=== PATIENT | female | born 1935 | race Caucasian/White ===

== ENCOUNTER 2018-06-11 09:43 | Outpatient (REF) | payer MEDICARE, SELFPAY ==
[2018-06-11 20:19] LABS: HCT 36.5 % (36.0-46.0); HGB 12.9 g/dL (12.0-15.5); Mean Corp. HGB Concentration 35.3 g/dL (32.0-36.0); Mean Corpuscular Hemoglobin 29.3 pg (27.0-33.0); Mean Platelet Volume 9.3 fL (8.0-11.0); Platelet Count 218 x1000/uL (130-400); White Blood Cell Count 5.77 k/cumm (4.4-10.8)
[2018-06-11 20:28] LABS: Anion Gap 8.6 mmol/L (3-11); BUN 15 mg/dL (7-18); CO2 26.4 mmol/L (21.0-32.0); CREATININE 0.86 mg/dL (0.55-1.02); Calcium 8.7 mg/dL (8.5-10.1); Chloride 107 mmol/L (98-107); Glucose 99 mg/dL (70-100); Potassium 4.4 mmol/L (3.5-5.1); Sodium 142 mmol/L (136-145)
== END 2018-06-11 10:03 ==
LOC: NCHCN 09:43
PROVIDERS: PCP Nurse Practitioner Family; Visit Provider Physician Assistant Medical
DX: E78.5 Hyperlipidemia, unspecified (principal)
CPT/HCPCS: 80048; 85027

== ENCOUNTER 2019-02-09 12:52 | Outpatient (REF) | payer MEDICARE, SELFPAY ==
[2019-02-09 22:09] LABS: ALT 18 U/L (12-78); AST 16 U/L (15-37); Anion Gap 12.4 mmol/L (3-11); BUN 17 mg/dL (7-18); CO2 24.6 mmol/L (21.0-32.0); Calcium 8.9 mg/dL (8.5-10.1); Chloride 101 mmol/L (98-107); Cholesterol 179 mg/dL (50-200); Glucose 93 mg/dL (70-100); HDL Cholesterol 50 mg/dL (40-60); LDL CHOLESTEROL 93 mg/dL (<100); Potassium 4.5 mmol/L (3.5-5.1); Sodium 138 mmol/L (136-145); Triglyceride 154 mg/dL (30-150)
[2019-02-09 23:32] LABS: Creatine Kinase 42 U/L (26-192)
== END 2019-02-09 13:12 ==
LOC: NCHCN 12:52
PROVIDERS: PCP Nurse Practitioner Family; Visit Provider Nurse Practitioner Family
DX: E78.5 Hyperlipidemia, unspecified (principal); F41.9 Anxiety disorder, unspecified
CPT/HCPCS: 80048; 80061; 82550; 83721; 84450; 84460

== ENCOUNTER 2019-10-27 15:53 | Outpatient (REF) | payer MEDICARE, SELFPAY ==
[2019-10-27 22:03] LABS: Abs Immature Grans 0.02 k/cumm (0.0-0.09); Absolute Basophil Count 0.02 k/cumm (0.0-0.2); Absolute Eosinophil Count 0.18 k/cumm (0.0-0.7); Absolute Lymphocyte Count 1.61 k/cumm (1.2-3.4); Absolute Monocyte Count 0.49 k/cumm (0.11-0.7); Absolute Neutrophil Count 4.35 k/cumm (1.2-6.7); Basophils % 0.3; Eosinophils % 2.7; HCT 34.4 % (36.0-46.0); HGB 11.9 g/dL (12.0-15.5); Immature Grans % 0.3 %; Lymphocytes % 24.1; Mean Corp. HGB Concentration 34.6 g/dL (32.0-36.0); Mean Corpuscular Hemoglobin 30.3 pg (27.0-33.0); Mean Corpuscular Volume 87.5 fL (80-95); Mean Platelet Volume 9.1 fL (8.0-11.0); Monocytes % 7.3; Neutrophils % 65.3; Platelet Count 269 x1000/uL (130-400); RBC 3.93 m/cumm (4.00-5.20); RBC Distribution Width 13.9 % (11.7-14.6); White Blood Cell Count 6.67 k/cumm (4.4-10.8)
[2019-10-27 22:17] LABS: Hemoglobin A1C 5.1 % (3.8-5.6)
[2019-10-27 22:28] LABS: Anion Gap 13.5 mmol/L (3-11); BUN 14 mg/dL (7-18); CO2 22.5 mmol/L (21.0-32.0); CREATININE 0.94 mg/dL (0.55-1.02); Calcium 8.9 mg/dL (8.5-10.1); Chloride 103 mmol/L (98-107); Estimated GFR 57.01 (mL/min/1.73m2); Glucose 96 mg/dL (74-106); HDL Cholesterol 83 mg/dL (40-60); LDL CHOLESTEROL 73 mg/dL (<100); Magnesium 2.2 mg/dL (1.8-2.4); Potassium 4.3 mmol/L (3.5-5.1); Sodium 139 mmol/L (136-145)
[2019-10-27 22:55] LABS: NT-proBNP 1077 pg/mL (<300)
[2019-10-29 06:43] LABS: Vitamin D 25 Total 8.1 ng/ml (30-100)
== END 2019-10-27 16:13 ==
LOC: NCHCO 15:53
PROVIDERS: PCP Nurse Practitioner Family; Visit Provider Nurse Practitioner Family
DX: E78.5 Hyperlipidemia, unspecified (principal); I44.7 Left bundle-branch block, unspecified; L65.9 Nonscarring hair loss, unspecified; F32.9 Major depressive disorder, single episode, unspecified; F41.9 Anxiety disorder, unspecified; R60.9 Edema, unspecified; E55.9 Vitamin D deficiency, unspecified; R79.89 Other specified abnormal findings of blood chemistry; M25.511 Pain in right shoulder; R55 Syncope and collapse
CPT/HCPCS: 80048; 82306; 83721; 83036; 83718; 83735; 83880; 84443; 85025

== ENCOUNTER 2019-11-25 03:18 | Outpatient (CLI) | payer MEDICARE, SELFPAY | END 2019-11-25 03:38 | PROVIDERS: PCP Nurse Practitioner Family; Visit Provider Nurse Practitioner Family | DX: R55 Syncope and collapse (principal); I47.1 Supraventricular tachycardia | CPT/HCPCS: 93225 ==

== ENCOUNTER 2019-11-27 16:58 | Outpatient (CLI) | payer MEDICARE, SELFPAY ==
--- NOTE | 2019-11-30 08:23 | W.HOLTRPT ---
Date of service: 11/30/19 Time of Service: 08:23 Holter Monitor Report Holter Monitor Note: This is a 2-day Holter monitor ordered for indication of syncope. ?The patient was in normal sinus rhythm for the majority of the recording. ?The patient had 8 episodes of supraventricular tachycardia with the longest lasting 27 beats. There were rare (less than 1%) premature atrial contractions. ?There were 0 episodes of ventricular tachycardia and 0 ventricular ectopic beats. ?There were no episodes of atrial fibrillation, no pauses greater than 3 seconds and no evidence of high degree heart block. ?There were no patient triggered events.
== END 2019-11-27 17:18 ==
PROVIDERS: PCP Nurse Practitioner Family; Visit Provider Nurse Practitioner Family
DX: R55 Syncope and collapse (principal)
CPT/HCPCS: 93226

== ENCOUNTER 2019-11-30 08:23 | Outpatient (CLI) | payer MEDICARE, SELFPAY | END 2019-11-30 08:43 | PROVIDERS: PCP Nurse Practitioner Family; Referring Provider Nurse Practitioner Family; Visit Provider Internal Medicine Cardiovascular Disease | DX: R55 Syncope and collapse (principal); I47.1 Supraventricular tachycardia | CPT/HCPCS: 93227 ==

== ENCOUNTER 2019-12-01 00:23 | Outpatient (CLI) | payer MEDICARE, SELFPAY ==
--- NOTE | 2019-12-01 11:58 | DI.US_ITS ---
APPROVED REPORT EXAM: Comprehensive 2D, Doppler, and color-flow Echocardiogram Patient Location: Out-Patient [place] Upholsterer: Skylar Womack RDCS (AE) Indications: Bundle branch block, Syncope Conclusion Left Ventricle : The left ventricle is normal size. The left ventricular systolic function is normal . The left ventricular ejection fraction is within the normal range. Left ventricular systolic functi on is normal. There is normal left ventricular wall thickness. There is normal LV segmental wall lindsey on. There is evidence of LV diastolic dysfunction with increased left atrial pressure. LVEF is 55-59% . Right Ventricle : The right ventricle is normal size. The right ventricular systolic function is norm al. Atria : The left atrium size is normal. The right atrium size is normal. Aortic Valve : Aortic valve is trileaflet. The Aortic valve is sclerotic. Mild to moderate aortic reg urgitation. There is no aortic valvular stenosis. Mitral Valve : There is mitral annular calcification. Mild mitral regurgitation. No evidence of mookie l valve stenosis. Great Vessels : The IVC was not well visualized. Estimated RVSP is 30-35 mmHg. There is no prior echocardiogram available for comparison. Wall motion Left Ventricle The left ventricle is normal size. The left ventricular systolic function is normal. The left ventric ular ejection fraction is within the normal range. Left ventricular systolic function is normal. Ther e is normal left ventricular wall thickness. There is normal LV segmental wall motion. There is evide nce of LV diastolic dysfunction with increased left atrial pressure. LVEF is 55-59%. Right Ventricle The right ventricle is normal size. The right ventricular systolic function is normal. Atria The left atrium size is normal. The right atrium size is normal. Aortic Valve Aortic valve is trileaflet. The Aortic valve is sclerotic. There is no aortic valvular stenosis. Mild to moderate aortic regurgitation. Mitral Valve There is mitral annular calcification. No evidence of mitral valve stenosis. Mild mitral regurgitatio n. Tricuspid Valve The tricuspid valve is normal in structure. There is no tricuspid valve stenosis. Mild tricuspid regu rgitation. Pulmonic Valve The pulmonary valve is normal in structure. There is no pulmonic valvular stenosis. Trace pulmonic re gurgitation. Great Vessels The aortic root is normal in size. The ascending aorta is normal in size. The IVC was not well visual ized. Estimated RVSP is 30-35 mmHg. Pericardium There is no pericardial effusion. 2D Dimensions IVSD d PLAX 0.96 cm F: 0.6-1.0 LV Vol A2C d MOD 69.7 mL LVPW d PLAX 0.94 cm F: 0.6 - 1.0 LV Vol A4C d MOD 58.1 mL LVID d PLAX 4.45 cm F: 3.8 - 5.2 LA vol/ BSA A2C s A-L 23.3 mL/m2 LVDs 3.20 cm F: 2.2 - 3.5 LA vol/ BSA A4C s A-L 28.3 mL/m2 Ao Root d 2.73 cm F: 2.7 - 3.3 LA Vol/ BSA Biplane s A-L 27.0 mL/m2 RA Area A4C 13.91 cm2 LA Area A4C s MOD 17.75 cm2 RA Vol/ BSA A4C s A-L 19.0 mL/m2 LA Area A2C s MOD 15.30 cm2 Ao Asc Diam d 3.14 cm F: 2.3 - 3.1 LV EF A4C MOD 51.0 % LV EF Teichholz 53.9 % LV EF A2C MOD 59.3 % LVEF (Jones's) 55.67 % F: 54 - 74 LV EF Biplane MOD 55.7 % LV Volume 50.26 mL F: 46 - 106 LV Volume Index 28.72 mL/m2 F: 29 - 61 LV Vol Biplane MOD 64.0 mL FS 27.70 % LV Diastology MV E' medial 0.048 (>0.07 m/s) E/A Ratio 0.7 LV E/e MED 14.60 (<14) MV E Vmax 0.70 (0.4-1.3 m/s) MV E' lateral 0.077 (>0.1 m/s) MV A Vmax 1.05 (0.4-1.3 m/s) LV E/e LAT 9.05 (<14) MV E/A Ratio 0.65 MV E/E' medial 14.63 MV E/E' lateral 9.06 Aortic Valve LVOT Area 2.36 cm2 AoV Area Vmax 1.40 cm2 LVOT Vmax 1.23 m/s AoV Area/ BSA (Vmax) 0.80 cm2/m2 LVOT Mean Franco. 0.84 m/s JAGUAR Mean Franco. 1.38 cm2 LVOT Peak Grad 6.0 mmHg JAGUAR Mean Franco. Index 0.79 cm2/m2 LVOT Mean Grad 3.3 mmHg AR DT 1522 msec LVOT VTI 0.254 m AR PHT 441 msec LVOT Diam s 1.70 cm (M/F) 1.5-2.5 AoV Vmax 2.07 (0.5-1.3 m/s) Velocity Ratio 0.59 AoV Mean Franco. 1.44 m/s AoV Peak Grad 17.2 mmHg LVOT SV 60.04 mL AoV Mean Grad 9.3 (<5 mmHg) AoV VTI 0.393 (0.18-0.25 m) AoV Area VTI 1.53 (2.5-4.5 cm2) AoV Area/ BSA (VTI) 0.87 cm/m2 Mitral Valve MV DT 227 (160-240 msec) MR Vmax 5.12 m/s MV PHT 66 msec MR VTI 1.449 m MV Area PHT 3.35 cm2 MR Peak Grad 104.7 mmHg MR Mean Grad 74.7 mmHg Pulmonary Valve PV Vmax 0.95 (0.5-1.5 m/s) RVOT Peak Gr. 1.76 mmHg PV Peak Grad 3.6 mmHg RVOT Mean Gr. 0.80 mmHg PV Mean Grad 1.8 mmHg RVOT VTI 0.127 m PV VTI 0.160 m RVOT Vmax 0.66 m/s Tricuspid Valve TR Peak Grad 33.5 mmHg TR Vmax 2.89 m/s RA Pressure 3.00 mmHg RVSP (TR) 36.5 mmHg
== END 2019-12-01 00:43 ==
PROVIDERS: PCP Nurse Practitioner Family; Visit Provider Nurse Practitioner Family
DX: R55 Syncope and collapse (principal); I44.7 Left bundle-branch block, unspecified; I35.1 Nonrheumatic aortic (valve) insufficiency
CPT/HCPCS: 93306

== ENCOUNTER 2020-03-03 11:24 | Outpatient (REF) | payer MEDICARE, SELFPAY ==
[2020-03-03 20:07] LABS: ALT 23 U/L (14-59); AST 25 U/L (15-37); Albumin 3.9 g/dL (3.4-5.0); Alkaline Phosphatase 129 U/L (46-116); Anion Gap 10.6 mmol/L (3-11); BUN 17 mg/dL (7-18); Bilirubin, Total 0.9 mg/dL (0.2-1.0); CO2 25.4 mmol/L (21.0-32.0); CREATININE 0.95 mg/dL (0.55-1.02); Calcium 8.8 mg/dL (8.5-10.1); Chloride 105 mmol/L (98-107); Estimated GFR 56.32 (mL/min/1.73m2); Glucose 97 mg/dL (74-106); Potassium 4.2 mmol/L (3.5-5.1); Sodium 141 mmol/L (136-145)
[2020-03-03 20:25] LABS: Vitamin D 25 Total 18.6 ng/ml (30-100)
[2020-03-03 21:52] LABS: Creatine Kinase 58 U/L (26-192)
== END 2020-03-03 11:44 ==
LOC: NCHCN 11:24
PROVIDERS: PCP Nurse Practitioner Family; Visit Provider Nurse Practitioner Family
DX: E78.5 Hyperlipidemia, unspecified (principal); E55.9 Vitamin D deficiency, unspecified
CPT/HCPCS: 80053; 82306; 82550

== ENCOUNTER 2020-04-06 10:33 | Outpatient (REF) | payer MEDICARE, SELFPAY ==
[2020-04-06 22:07] LABS: Anion Gap 8.7 mmol/L (3-11); BUN 11 mg/dL (7-18); CO2 26.3 mmol/L (21.0-32.0); CREATININE 0.83 mg/dL (0.55-1.02); Calcium 9.4 mg/dL (8.5-10.1); Chloride 103 mmol/L (98-107); Glucose 98 mg/dL (74-106); Potassium 4.9 mmol/L (3.5-5.1); Sodium 138 mmol/L (136-145)
== END 2020-04-06 10:53 ==
LOC: NCHCN 10:33
PROVIDERS: PCP Nurse Practitioner Family; Visit Provider Nurse Practitioner Family
DX: I10 Essential (primary) hypertension (principal)
CPT/HCPCS: 80048

== ENCOUNTER 2020-06-20 15:41 | Outpatient (REF) | payer MEDICARE, SELFPAY ==
[2020-06-20 20:02] LABS: HCT 32.7 % (36.0-46.0); HGB 11.2 g/dL (11.2-15.7); MCH 31.2 pg (27.0-33.0); MCHC 34.3 % (32.0-36.0); MCV 91.1 fL (80-95); MPV 9.2 fL (8.0-11.0); Platelet Count 210 10^3/uL (130-400); RBC 3.59 10^6/uL (3.93-5.22); RDW 13.2 % (11.7-14.6); RDW-SD 43.3 fL
== END 2020-06-20 16:01 ==
LOC: NCHCN 15:41
PROVIDERS: PCP Nurse Practitioner Family; Visit Provider Nurse Practitioner Family
DX: R89.8 Other abnormal findings in specimens from other organs, systems and tissues (principal)
CPT/HCPCS: 85027

== ENCOUNTER 2020-10-24 15:52 | Outpatient (REF) | payer MEDICARE, SELFPAY ==
[2020-10-24 15:30] LABS: HCT 34.8 % (36.0-46.0); HGB 12.2 g/dL (11.2-15.7); MCH 31.3 pg (27.0-33.0); MCHC 35.1 % (32.0-36.0); MCV 89.2 fL (80-95); MPV 9.1 fL (8.0-11.0); Platelet Count 196 10^3/uL (130-400); RDW 12.8 % (11.7-14.6); RDW-SD 41.4 fL; WBC 5.45 10^3/uL (4.4-10.8)
[2020-10-24 15:53] LABS: ALT 21 U/L (14-59); AST 22 U/L (15-37); Anion Gap 10.3 mmol/L (3-11); BUN 17 mg/dL (7-18); CO2 23.7 mmol/L (21.0-32.0); CREATININE 0.9 mg/dL (0.55-1.02); Calcium 9.1 mg/dL (8.5-10.1); Calculated LDL 89 mg/dL (<100); Chloride 103 mmol/L (98-107); Cholesterol 198 mg/dL (<200); Glucose 97 mg/dL (74-106); HDL Cholesterol 89 mg/dL (40-60); Potassium 4.4 mmol/L (3.5-5.1); Sodium 137 mmol/L (136-145); TSH 1.16 uIU/mL (0.36-3.74); Triglyceride 100 mg/dL (<150)
[2020-10-24 16:03] LABS: Vitamin D 25 Total 35.3 ng/ml (30-100)
[2020-10-24 16:11] LABS: Creatine Kinase 49 U/L (26-192)
== END 2020-10-24 16:12 ==
LOC: NCHCN 15:52
PROVIDERS: PCP Nurse Practitioner Family; Visit Provider Nurse Practitioner Family
DX: E78.5 Hyperlipidemia, unspecified (principal); E55.9 Vitamin D deficiency, unspecified; I10 Essential (primary) hypertension; R89.9 Unspecified abnormal finding in specimens from other organs, systems and tissues; L60.9 Nail disorder, unspecified
CPT/HCPCS: 80048; 80061; 82306; 82550; 85027; 84443; 84450; 84460

== ENCOUNTER → 2020-12-06 10:48 | Outpatient (BNVA) | payer MEDICARE, SELFPAY | PROVIDERS: PCP Nurse Practitioner Family; Referring Provider Nurse Practitioner Family; Visit Provider Nurse Practitioner Gerontology | DX: N32.81 Overactive bladder (principal); I10 Essential (primary) hypertension | CPT/HCPCS: 99215 ==

== ENCOUNTER → 2021-01-09 10:29 | Outpatient (BNVA) | payer MEDICARE, SELFPAY | PROVIDERS: PCP Nurse Practitioner Family; Referring Provider Nurse Practitioner Family; Visit Provider Nurse Practitioner Gerontology | DX: N32.81 Overactive bladder (principal) | CPT/HCPCS: 99214 ==

== ENCOUNTER 2021-01-24 08:51 | Outpatient (REF) | payer MEDICARE, SELFPAY ==
[2021-01-24 10:49] LABS: Bilirubin Small (Negative); Blood Negative (Negative); Clarity Cloudy (Clear); Glucose Negative (Negative); Ketones Trace mg/dL (Negative); Leukocyte Esterase Negative (Negative); Nitrite Negative (Negative); Specific Gravity >= 1.030 (1.005-1.025); Urobilinogen 0.2 EU/dL (Up TO 0.2); pH 5.5 (5-8)
[2021-01-24 12:34] LABS: C Diff PCR Negative (Negative)
== END 2021-01-24 08:52 | disposition home or self-care (01) ==
LOC: NCHCN 08:51
PROVIDERS: PCP Nurse Practitioner Family; Visit Provider Nurse Practitioner Family
DX: R19.7 Diarrhea, unspecified (principal); N32.81 Overactive bladder
CPT/HCPCS: 87493; 81003; 82272; 83630

== ENCOUNTER 2021-01-25 11:02 | Outpatient (REF) | payer MEDICARE, SELFPAY ==
[2021-01-25 22:57] LABS: Campylobacter PCR Negative (Negative); Salmonella PCR Negative (Negative); Shiga Toxin PCR Negative (Negative); Shigella/Enteroinvasive Ecoli Negative (Negative)
== END 2021-01-25 11:03 | disposition home or self-care (01) ==
LOC: NCHCN 11:02
PROVIDERS: PCP Nurse Practitioner Family; Visit Provider Nurse Practitioner Family
DX: R19.7 Diarrhea, unspecified (principal)
CPT/HCPCS: 87329; 87505; 87177

== ENCOUNTER → 2021-04-11 10:15 | Outpatient (BNVA) | payer MEDICARE, SELFPAY | PROVIDERS: PCP Nurse Practitioner Family; Referring Provider Nurse Practitioner Family; Visit Provider Nurse Practitioner Gerontology | DX: N32.81 Overactive bladder (principal) | CPT/HCPCS: 99214 ==

== ENCOUNTER → 2021-05-16 08:16 | Outpatient (BNVA) | payer MEDICARE, SELFPAY | PROVIDERS: PCP Nurse Practitioner Family; Referring Provider Nurse Practitioner Family; Visit Provider Nurse Practitioner Gerontology | DX: N32.81 Overactive bladder (principal); Z79.899 Other long term (current) drug therapy | CPT/HCPCS: 99214 ==

== ENCOUNTER → 2021-08-15 08:17 | Outpatient (BNVA) | payer MEDICARE, SELFPAY | PROVIDERS: PCP Nurse Practitioner Family; Referring Provider Nurse Practitioner Family; Visit Provider Nurse Practitioner Gerontology | DX: N32.81 Overactive bladder (principal) | CPT/HCPCS: 99213 ==

== ENCOUNTER 2021-10-24 21:11 | Outpatient (REF) | payer MEDICARE, SELFPAY ==
[2021-10-24 21:06] LABS: ALT 25 U/L (14-59); AST 21 U/L (15-37); Anion Gap 10.3 mmol/L (3-11); BUN 29 mg/dL (7-18); CO2 26.7 mmol/L (21.0-32.0); CREATININE 1.2 mg/dL (0.55-1.02); Calcium 9.4 mg/dL (8.5-10.1); Chloride 103 mmol/L (98-107); Glucose 100 mg/dL (74-106); HDL Cholesterol 86 mg/dL (40-60); LDL CHOLESTEROL 82 mg/dL (<100); Potassium 4.6 mmol/L (3.5-5.1); Sodium 140 mmol/L (136-145)
[2021-10-24 21:52] LABS: Creatine Kinase 56 U/L (26-192)
== END 2021-10-24 21:12 | disposition home or self-care (01) ==
LOC: NCHCN 21:11
PROVIDERS: PCP Nurse Practitioner Family; Visit Provider Nurse Practitioner Family
DX: E78.5 Hyperlipidemia, unspecified (principal); I10 Essential (primary) hypertension
CPT/HCPCS: 80048; 82550; 83721; 83718; 84450; 84460

== ENCOUNTER 2021-11-21 18:47 | Outpatient (REF) | payer MEDICARE, SELFPAY ==
[2021-11-21 20:20] LABS: Anion Gap 6.9 mmol/L (3-11); BUN 22 mg/dL (7-18); CO2 29.1 mmol/L (21.0-32.0); CREATININE 1.1 mg/dL (0.55-1.02); Calcium 9.6 mg/dL (8.5-10.1); Chloride 104 mmol/L (98-107); Estimated GFR 47.32 (mL/min/1.73m2); Glucose 105 mg/dL (74-106); Sodium 140 mmol/L (136-145)
== END 2021-11-21 18:48 | disposition home or self-care (01) ==
LOC: NCHCN 18:47
PROVIDERS: PCP Nurse Practitioner Family; Visit Provider Nurse Practitioner Family
DX: R79.89 Other specified abnormal findings of blood chemistry (principal)
CPT/HCPCS: 80048

== ENCOUNTER 2021-12-04 10:26 | Day surgery (SDC) | payer MEDICARE, SELFPAY ==
--- NOTE | 2021-12-04 06:56 | W.ANESPRE ---
General Info Date of Service Date Performed: 12/04/21 Height: 5 ft 3 in Weight: 86.5 kg Body Mass Index (BMI): 33.7 Surgical Procedure: Operation Date: 12/04/21 13:40 Proposed Procedure Side Surgeon p Cataract Extraction with IOL Implant Left Parker Sneed MD Meds Allergies and Home Medications Allergies Allergy/AdvReac Type Severity Reaction Status Date / Time codeine AdvReac Intermediate Nausea Verified 12/04/21 10:43 oxybutynin AdvReac Mild dry mouth Verified 12/04/21 10:43 Home Medication Medication Instructions Recorded simvastatin 10 mg tablet 10 mg PO HS tab-cap 12/15/15 escitalopram oxalate 20 mg tablet 20 mg PO DAILY 02/01/16 (Lexapro) zinc 50 mg tablet 50 mg PO PRN PRN 02/01/16 mirabegron 25 mg tablet,extended 25 mg PO DAILY #90 tab 08/15/21 release 24 hr (Myrbetriq) buspirone 5 mg tablet 5 mg PO BID 12/01/21 lisinopril 5 mg tablet 5 mg PO DAILY 12/01/21 vit D3-folic acid-vit B2-B6-B12 1 tab PO 12/04/21 2,000 unit-800 mcg-0.32 mg tablet Current Visit Medications: Current Medications Generic Name Dose Route Start Last Admin Trade Name Freq PRN Reason Stop Dose Admin Acetaminophen 1,000 mg 12/04/21 06:00 Acetaminophen 500 Mg Tab PO Q4H PRN PRN Miscellaneous Medication 0 ml 12/04/21 06:00 Prednisolone 1%, Moxifloxacin 0.5%, Nepafenac 0.1% 5ml Btl OS DIRECTED [facility] Miscellaneous Medication 0 ml 12/04/21 06:00 Tropicam./Phenyleph. 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 Scleral hemorrhage of right eye H11.31 Abnormal auditory perception H93.299 Cerumen impaction H61.20 Foreign body in right ear T16.1XXA Tinnitus H93.19 Sensorineural hearing loss of combined sites, bilateral 06/08/16 H90.3 Medical History Medical History (Updated 12/04/21 @ 10:56 by Parker Sneed MD) Alcohol abuse Alopecia Anxiety and depression Hyperlipidemia Hypertension Left bundle branch block Peripheral edema Right shoulder pain Syncope and collapse Urinary urgency Vertigo Vitamin D deficiency Tobacco Smoking/Tobacco Use Status: Former Tobacco Use Alcohol Alcohol Intake: former Substance Use Substance use: Never Substance use type: does not use Vital Signs and Lab Results Vital Signs Most Recent Vital Signs in EMR: Temp Pulse Resp BP Pulse Ox 36.1 C L 75 16 144/56 H 100 12/04/21 10:48 12/04/21 10:48 12/04/21 10:48 12/04/21 10:48 12/04/21 10:48 Lab Results Blood Type / Crossmatch: No Data to Display Complete Blood Count: No Data to Display Complete Metabolic Panel: Sodium Level 140 mmol/L (136-145) 11/21/21 14:15 11/21/21 Potassium Level 5.0 mmol/L (3.5-5.1) 11/21/21 14:15 11/21/21 Chloride Level 104 mmol/L (98-107) 11/21/21 14:15 11/21/21 Carbon Dioxide Level 29.1 mmol/L (21.0-32.0) 11/21/21 14:15 11/21/21 Blood Urea Nitrogen 22 mg/dL (7-18) H 11/21/21 14:15 11/21/21 Creatinine 1.1 mg/dL (0.55-1.02) H 11/21/21 14:15 11/21/21 Estimated GFR/1.73 m2 47.32 (mL/min/1.73m2) 11/21/21 14:15 11/21/21 Calcium Level 9.6 mg/dL (8.5-10.1) 11/21/21 14:15 11/21/21 Glucose Level 105 mg/dL (74-106) 11/21/21 14:15 11/21/21 Liver Function Panel: No Data to Display Coagulation Panel: No Data to Display Cardiac Panel: No Data to Display Arterial Blood Gas: No Data to Display Venous Blood Gas: No Data to Display Pancreas Panel: No Data to Display Thyroid Panel: No Data to Display Infectious Disease: No Data to Display Blood Cultures: No Data to Display Toxicology Panel: No Data to Display Imaging and Studies Imaging and Studies Study information below may be from another EMR and interpreted by another provider. Please see original notes in EMR for more complete details. Echocardiogram Summary: 2020: LVEF 55-59%, mild to mod AR, mild MR. Anesthesia Assessment and Plan Anesthesia History Personal History: No History of Anesthesia Complications Family History: No Family History of Anesthesia Complications Exercise Tolerance Exercise Tolerance: Metabolic Equivalents>4 Cardiac & Pulmonary Exam Cardiac Exam: Normal S1/S2 Heart Sounds Pulmonary Exam: Clear Bilateral Breath Sounds Implantable Cardiac Device Does patient have a Pacemaker or an ICD?: No Airway Exam Known Difficult Airway: No Mallampati Class: 2 Mouth Opening: Normal (> 3cm) Thyromental Distance: Greater than 3 cm Neck Range of Motion: Full ROM Neck Circumference: Normal Teeth Condition: Normal Dentition ASA Classification ASA Score: ASA 2 Emergency Case?: No NPO Status NPO Status: NPO Clears >2 hours, Solids >8 hours Anesthesia Plan Resuscitation Status: Full Code Anesthesia Technique: MAC Anesthesia Airway Planned: Natural Airway Monitors Used: Standard Monitors Preoperative Comments:: 86 yo female for cataract removal. Sig PMHx: anxiety/depression, HTN (lisinopril), LBBB, EtOH abuse. Previous LMA 4. no mKO
[2021-12-04 10:48] VITALS: BP 144/56; PULSE 75; RESP 16; TEMP 36.1; O2SAT 100
[2021-12-04 10:56] VITALS: BMI 33.7
[2021-12-04] MEDS: Tropicam./Phenyleph. (1/2.5%) 5 ML BTL OS ×3 (10:56→11:06)
[2021-12-04] MEDS: Tetracaine 0.5% 4 ML BTL OS (11:55)
[2021-12-04] MEDS: Balanced Salt Soln.-PLUS 500 ML BAG (11:55)
[2021-12-04] MEDS: Duovisc Viscoelastic System EACH 1 EACH (11:56)
[2021-12-04] MEDS: Lidocaine 2% Jelly 6 ML SYR (11:57)
[2021-12-04] MEDS: Povidone-Iodine Ophth 30 ML BTL (11:58)
[2021-12-04 12:10] VITALS: BP 113/55; PULSE 65; RESP 16; TEMP 36.2; O2SAT 96
--- NOTE | 2021-12-04 12:12 | W.PM.DSUDISC ---
Discharge Plan Disposition Patient Disposition: HOME Condition: Good Discharge Details Attending Provider: Parker Sneed Primary Care Provider: Jessica Russell Home Meds and New Rx's Prescriptions: No Action Myrbetriq 25 mg tablet extended release 24 hr 25 mg PO DAILY Qty: 90 3RF simvastatin 10 MG tablet 10 mg PO HS 0RF Label Comments: dosage unknown 3.16.HE zinc 50 MG tablet 50 mg PO PRN PRN0RF escitalopram oxalate [Lexapro] 20 MG tablet 20 mg PO DAILY 0RF buspirone 5 mg tablet 5 mg PO BID 0RF Label Comments: TAKE 1 TABLET BY MOUTH TWICE DAILY lisinopril 5 mg tablet 5 mg PO DAILY 0RF Label Comments: TAKE 1 TABLET BY MOUTH EVERY DAY vit D3-folic [id number]-[id number]-B12 2,000-800-0.32 unit-mcg-mg Tablet 1 tab PO 0RF Discharge Instructions Stand Alone Forms: Post-op Topical Cataract, Brandy Arellano (DSU) Discharge Orders Discharge Orders: Discharge Order (Routine); Ordered 12/04/21 Ordered By: Parker Sneed DS: Diagnosis Discharge Diagnosis (1) Nuclear sclerotic cataract of left eye: Status: Resolved
--- NOTE | 2021-12-04 12:13 | ROE_ITS ---
Date of service: 12/04/21 Time of Service: 12:13 Operative Note Operative Note DATE OF PROCEDURE: 12/04/21 PRE-OP DIAGNOSIS: Nuclear cataract, left eye POST-OP DIAGNOSIS: same PROCEDURE: Cataract extraction using phacoemulsification with intraocular lens implant, left eye SURGEON: Parker Sneed ANESTHESIA TYPE: Local By Surgeon and MAC Refer to Anesthesia Record PATHOLOGY: none sent COMPLICATIONS: None Patient was transported to: same day Patient's condition: stable Implants: [employer] / [employer] Tecnis [id number] Indications: Progressive decreased vision due to cataract, left eye Procedure Description: CATARACT SURGERY OPERATIVE REPORT PREOPERATIVE DIAGNOSIS: 1. Nuclear cataract, left eye POSTOPERATIVE DIAGNOSIS: Same OPERATION: 1. Cataract extraction using phacoemulsification with posterior chamber intraocular lens implant, left eye. IOL: IOL Pharmacy Informatics Manager/Model: [employer] Frank / ELIZABETH Tecnis [id number] IOL Power: + 24.5 diopters IOL Serial Number: [id number] Optic Diameter: 6.0 mm Haptic/Overall Diameter: 13.0 mm PHACO INFO: [employer] Vision System with OZil and Active Fluidics Cumulative Dispersed Energy (CDE): 8.73 seconds SURGEON: Parker Sneed MD, RACHAEL ANESTHESIA: Monitored A [facility] (MAC), with local sub-tenon's anesthetic infiltration COMPLICATIONS: None SPECIMENS: None INDICATIONS FOR PROCEDURE: The patient is an 86-year-old lady with history of diminished visual acuity in her left eye secondary to the development of nuclear cataract. The option of cataract surgery was offered to the patient and she felt she was symptomatic enough that she wished to proceed. PROCEDURE: The correct surgical eye was identified and marked as the left eye and the pupil was dilated in the preoperative area using mydriatics and cycloplegics. The dilated pupil size was 6.5 mm. She elected to proceed without oral sedation. The patient was brought to the operating room where cardiopulmonary monitoring was instituted and surgical time-out was performed, confirming the correct operative eye and IOL power. Topical anesthesia was administered and ophthalmic povidone-iodine 5% was instilled into the conjunctival fornices. Lidocaine gel was applied to the cornea and the iram-ocular area was prepped with Betadine 10% solution and draped in the usual sterile fashion for intraocular surgery, including an aperture drape. A Tegaderm transparent film dressing was cut in half and used to cover the lashes and lid margins. Care was taken to sequester the lashes and lid margins under the Tegaderm dressing. A lid speculum was placed between the lids of the operative eye and the [employer] Revalia operating microscope was maneuvered into position. Zulema scissors were then used to make a conjunctival buttonhole approximately 6mm posterior to the limbus in the inferonasal quadrant. Blunt dissection was carried out to expose bare sclera, and a blunt-tipped sub-tenon?s anesthesia cannula was introduced and passed posteriorly along the globe where non- preserved plain lidocaine was injected into posterior sub-Tenon?s space. A sideport knife was used to make a paracentesis port superiorly/superiortemporally. Intraocular phenylephrine/lidocaine was injected int the anterior chamber.. The anterior chamber was filled with viscoelastic. A 2.4mm keratome knife was used to create a half-thickness groove at the limbus and then to construct a three-plane near-clear corneal tunnel extending 2.0mm into clear cornea at the 3:00 position. A flap was raised on the anterior capsule and capsulorhexis forceps were used to complete a continuous curvilinear capsulorhexis of 5.0 mm. Balanced salt solution was then used to perform cortical cleaving hydrodissection and nuclear hydrodelineation until the lens could be freely rotated within the capsular bag. The lens nucleus was then disassembled and removed within the capsular bag and iris plane using phacoemulsification. Residual cortical material was removed using the 45-degree angled silicone I/A tip with 0.3mm port. The posterior capsule was carefully polished to remove as much residual lens epithelial cells as safely possible. The capsular bag was then inflated and the anterior chamber deepened with viscoelastic. The lens implant described above was inserted into the capsular bag using the ELIZABETH [place] Injector. A Kuglen hook was used to dial the IOL into position. Residual viscoelastic was then removed first from posterior to the IOL, then from the anterior chamber using the I/A handpiece. The lens implant was noted to center nicely within the capsular bag. The incisions were stromally hydrated, and the anterior chamber was reformed using BSS. Then 0.5cc of moxifloxacin 1.0mg/ml were injected into the capsular bag and anterior chamber. The incisions were checked with a Weck spear and found to be secure. Several drops of ophthalmic povidone-iodine 5% were then applied to the eye followed by two drops of Imprimis combination prednisolone/moxifloxacin/nepafenac solution. The drapes were removed and a clear plastic protective eye shield was placed over the eye. The patient was then returned to Same Day Surgery in stable condition.
--- NOTE | 2021-12-04 12:24 | W.ANESPOSTOP ---
Postoperative Evaluation Date, Time and Location Date Performed: 12/04/21 Time Performed: 12:24 Patient Location: Day Surgery Unit Vital Signs Most Recent Imported Vital Signs: Most Recent Vital Signs Temp Pulse Resp BP Pulse Ox 36.2 C L 65 16 113/55 L 96 12/04/21 12:10 12/04/21 12:10 12/04/21 12:10 12/04/21 12:10 12/04/21 12:10 Pain Score Most Recent Pain Score: Most Recent Pain Score Pain Level 0 12/04/21 12:10 Assessment Mental Status: Awake (Alert & Oriented to Patient Baseline) Airway and Respiratory Function: Patent airway with normal (patient baseline) respiratory exam Cardiovascular Function: Hemodynamically Stable Hydration Status: Adequately Hydrated Nausea & Vomiting: No Nausea or Vomiting Pain: Pt. Denies Any Pain Peripheral Nerve Block: Patient did not receive a nerve block
== END 2021-12-04 12:35 | disposition home or self-care (01) ==
PROVIDERS: PCP Nurse Practitioner Family; Visit Provider Ophthalmology
PROC: (CPT 66984; principal; 2021-12-04 13:30)
DX: H25.12 Age-related nuclear cataract, left eye (principal); I44.7 Left bundle-branch block, unspecified; I10 Essential (primary) hypertension; F41.8 Other specified anxiety disorders; F10.10 Alcohol abuse, uncomplicated; E55.9 Vitamin D deficiency, unspecified; E78.5 Hyperlipidemia, unspecified
CPT/HCPCS: 66984; V2632

== ENCOUNTER 2021-12-18 11:07 | Day surgery (SDC) | payer MEDICARE, SELFPAY ==
[2021-12-18] MEDS: Tropicam./Phenyleph. (1/2.5%) 5 ML BTL OD ×3 (11:37→11:47)
[2021-12-18 11:38] VITALS: BP 114/42; PULSE 65; RESP 16; TEMP 36.5; O2SAT 100
--- NOTE | 2021-12-18 12:14 | ANES.PREOP_ITS ---
General Info Date of Service Date Performed: 12/18/21 Height: 5 ft 3 in Weight: 69.7 kg Body Mass Index (BMI): 27.2 Surgical Procedure: Operation Date: 12/18/21 14:25 Proposed Procedure Side Surgeon p Cataract Extraction with IOL Implant Right Parker Sneed MD Meds Allergies and Home Medications Allergies Allergy/AdvReac Type Severity Reaction Status Date / Time codeine AdvReac Intermediate Nausea Verified 12/18/21 11:33 oxybutynin AdvReac Mild dry mouth Verified 12/18/21 11:33 Home Medication Medication Instructions Recorded simvastatin 10 mg tablet 10 mg PO HS tab-cap 12/15/15 escitalopram oxalate 20 mg tablet 20 mg PO DAILY 02/01/16 (Lexapro) zinc 50 mg tablet 50 mg PO PRN PRN 02/01/16 buspirone 5 mg tablet 5 mg PO BID 12/01/21 lisinopril 5 mg tablet 5 mg PO DAILY 12/01/21 vit D3-folic acid-vit B2-B6-B12 1 tab PO DAILY 12/04/21 2,000 unit-800 mcg-0.32 mg tablet mirabegron 25 mg tablet,extended 25 mg PO HS 12/15/21 release 24 hr (Myrbetriq) Current Visit Medications: Current Medications Generic Name Dose Route Start Last Admin Trade Name Freq PRN Reason Stop Dose Admin Acetaminophen 1,000 mg 12/18/21 06:00 Acetaminophen 500 Mg Tab PO Q4H PRN PRN Miscellaneous Medication 0 ml 12/18/21 06:00 Prednisolone 1%, Moxifloxacin 0.5%, Nepafenac 0.1% 5ml Btl OD DIRECTED [facility] Miscellaneous Medication 0 ml 12/18/21 06:00 12/18/21 11:47 Tropicam./Phenyleph. (1/2.5%) 5 Ml Btl OD 1 drp DIRECTED LA Administration Tetracaine HCl 0 ml 12/18/21 06:00 Tetracaine 0.5% 4 Ml Btl OD DIRECTED LA PFSH Active Problems Active Problems: Problem Status Onset Code Cortical cataract of right eye H26.9 Sensorineural hearing loss of combined sites, bilateral 06/08/16 H90.3 Tinnitus H93.19 Foreign body in right ear T16.1XXA Cerumen impaction H61.20 Abnormal auditory perception H93.299 Scleral hemorrhage of right eye H11.31 Bilateral asymmetric sensorineural hearing loss H90.3 Overactive bladder N32.81 Nuclear sclerotic cataract of right eye H25.11 Nuclear sclerotic cataract of left eye H25.12 Medical History Medical History Alcohol abuse Alopecia Anxiety and depression Hyperlipidemia Hypertension Left bundle branch block Peripheral edema Right shoulder pain Syncope and collapse Urinary urgency Vertigo Vitamin D deficiency Surgical History Surgical History History of cataract surgery History of colonoscopy History of esophagogastroduodenoscopy (EGD) Tobacco Smoking/Tobacco Use Status: Former Tobacco Use Alcohol Alcohol Intake: former Substance Use Substance use: Never Substance use type: does not use Vital Signs and Lab Results Vital Signs Most Recent Vital Signs in EMR: Most Recent Vital Signs Temp Pulse Resp BP Pulse Ox 36.5 C 65 16 114/42 L 100 12/18/21 11:38 12/18/21 11:38 12/18/21 11:38 12/18/21 11:38 12/18/21 11:38 Lab Results Blood Type / Crossmatch: No Data to Display Complete Blood Count: No Data to Display Complete Metabolic Panel: Sodium Level 140 mmol/L (136-145) 11/21/21 14:15 11/21/21 Potassium Level 5.0 mmol/L (3.5-5.1) 11/21/21 14:15 11/21/21 Chloride Level 104 mmol/L (98-107) 11/21/21 14:15 11/21/21 Carbon Dioxide Level 29.1 mmol/L (21.0-32.0) 11/21/21 14:15 11/21/21 Blood Urea Nitrogen 22 mg/dL (7-18) H 11/21/21 14:15 11/21/21 Creatinine 1.1 mg/dL (0.55-1.02) H 11/21/21 14:15 11/21/21 Estimated GFR/1.73 m2 47.32 (mL/min/1.73m2) 11/21/21 14:15 11/21/21 Calcium Level 9.6 mg/dL (8.5-10.1) 11/21/21 14:15 11/21/21 Glucose Level 105 mg/dL (74-106) 11/21/21 14:15 11/21/21 Liver Function Panel: No Data to Display Coagulation Panel: No Data to Display Cardiac Panel: No Data to Display Arterial Blood Gas: No Data to Display Venous Blood Gas: No Data to Display Pancreas Panel: No Data to Display Thyroid Panel: No Data to Display Infectious Disease: No Data to Display Blood Cultures: No Data to Display Toxicology Panel: No Data to Display Imaging and Studies Imaging and Studies Study information below may be from another EMR and interpreted by another provider. Please see original notes in EMR for more complete details. Echocardiogram Summary: 2020: LVEF 55-59%, mild to mod AR, mild MR. Anesthesia Assessment and Plan Anesthesia History Personal History: No History of Anesthesia Complications Family History: No Family History of Anesthesia Complications Exercise Tolerance Exercise Tolerance: Metabolic Equivalents>4 Pertinent Negatives Pertinent Negatives: No Symptoms of GERD, No Major Cardiovascular Symptoms or Complaints (L BBB), No Major Pulmonary Symptoms or Complaints and No History of CVA/TIA Cardiac & Pulmonary Exam Cardiac Exam: Normal S1/S2 Heart Sounds Pulmonary Exam: Clear Bilateral Breath Sounds Implantable Cardiac Device Does patient have a Pacemaker or an ICD?: No Airway Exam Known Difficult Airway: No Mallampati Class: 2 Mouth Opening: Normal (> 3cm) Thyromental Distance: Greater than 3 cm Neck Range of Motion: Full ROM Neck Circumference: Normal Teeth Condition: Normal Dentition ASA Classification ASA Score: ASA 2 Emergency Case?: No NPO Status NPO Status: NPO Clears >2 hours, Solids >8 hours Anesthesia Plan Resuscitation Status: Full Code Anesthesia Technique: MAC Anesthesia Airway Planned: Natural Airway Monitors Used: Standard Monitors
[2021-12-18 12:17] VITALS: BMI 27.2
[2021-12-18] MEDS: Tetracaine 0.5% 4 ML BTL OD (13:00)
[2021-12-18] MEDS: Balanced Salt Soln.-PLUS 500 ML BAG (13:01)
[2021-12-18] MEDS: Duovisc Viscoelastic System EACH 1 EACH (13:02)
[2021-12-18] MEDS: Lidocaine 2% Jelly 6 ML SYR (13:09)
[2021-12-18] MEDS: Povidone-Iodine Ophth 30 ML BTL (13:11)
[2021-12-18 13:15] VITALS: BP 120/40; PULSE 63; RESP 16; TEMP 36; O2SAT 99
--- NOTE | 2021-12-18 13:15 | W.PM.DSUDISC ---
Discharge Plan Disposition Patient Disposition: HOME Condition: Good Discharge Details Attending Provider: Parker Sneed Primary Care Provider: Jessica Russell Home Meds and New Rx's Prescriptions: No Action simvastatin 10 MG tablet 10 mg PO HS 0RF Label Comments: dosage unknown 12.15.15.HE zinc 50 MG tablet 50 mg PO PRN PRN0RF escitalopram oxalate [Lexapro] 20 MG tablet 20 mg PO DAILY 0RF Myrbetriq 25 mg tablet extended release 24 hr 25 mg PO HS 0RF buspirone 5 mg tablet 5 mg PO BID 0RF Label Comments: TAKE 1 TABLET BY MOUTH TWICE DAILY lisinopril 5 mg tablet 5 mg PO DAILY 0RF Label Comments: TAKE 1 TABLET BY MOUTH EVERY DAY vit D3-folic iqzb-[id number]-B12 2,000-800-0.32 unit-mcg-mg Tablet 1 tab PO DAILY 0RF Discharge Instructions Stand Alone Forms: Post-op Topical Cataract, Press Ganey (DSU) Discharge Orders Discharge Orders: Discharge Order (Routine); Ordered 12/18/21 Ordered By: Parker Sneed DS: Diagnosis Discharge Diagnosis (1) Cortical cataract of right eye: Status: Resolved
--- NOTE | 2021-12-18 13:16 | W.PM.OP ---
Date of service: 12/18/21 Time of Service: 13:16 Operative Note Operative Note DATE OF PROCEDURE: 12/18/21 PRE-OP DIAGNOSIS: Nuclear/cortical cataract, POST-OP DIAGNOSIS: same PROCEDURE: Cataract extraction using phacoemulsification with intraocular lens implant, right eye SURGEON: Parker Sneed ANESTHESIA TYPE: Local By Surgeon and MAC Refer to Anesthesia Record ESTIMATED BLOOD LOSS: 0 PATHOLOGY: none sent COMPLICATIONS: None Patient was transported to: same day Patient's condition: stable Implants: Frank & Frank/ELIZABETH Tecnis [id number] Indications: Progressive visual loss due to cataract, right eye Procedure Description: CATARACT SURGERY OPERATIVE REPORT PREOPERATIVE DIAGNOSIS: 1. Nuclear/cortical cataract, right eye POSTOPERATIVE DIAGNOSIS: Same OPERATION: 1. Cataract extraction using phacoemulsification with posterior chamber intraocular lens implant, right eye. IOL: IOL Accounting Systems Manager/Model: Frank & Frank / ELIZABETH Tecnis [id number] IOL Power: + 24.5 diopters IOL Serial Number: [id number] Optic Diameter: 6.0mm Haptic/Overall Diameter: 13.0mm PHACO INFO: Jaguar [place] Tamale Factoryurion Vision System with OZil and Active Fluidics Cumulative Dispersed Energy (CDE): 7.37 seconds SURGEON: Parker Sneed MD, RACHAEL ANESTHESIA: Monitored Anesthesia Care (MAC), with local sub-tenon's anesthetic infiltration COMPLICATIONS: None SPECIMENS: None INDICATIONS FOR PROCEDURE: The patient is an 86-year-old lady with history of diminished visual acuity in both eyes secondary to development of bilateral nuclear and cortical cataract. She has already undergone cataract surgery in her left eye and is doing well postoperatively. She now presents for cataract surgery in the right eye PROCEDURE: The correct surgical eye was identified and marked as the right eye and the pupil was dilated in the preoperative area using mydriatics and cycloplegics. The dilated pupil size was 7.0 mm. She elected to proceed without oral sedation. The patient was brought to the operating room where cardiopulmonary monitoring was instituted and surgical time-out was performed, confirming the correct operative eye and IOL power. Topical anesthesia was administered and ophthalmic povidone-iodine 5% was instilled into the conjunctival fornices. Lidocaine gel was applied to the cornea and the iram-ocular area was prepped with Betadine 10% solution and draped in the usual sterile fashion for intraocular surgery, including an aperture drape. A Tegaderm transparent film dressing was cut in half and used to cover the lashes and lid margins. Care was taken to sequester the lashes and lid margins under the Tegaderm dressing. A lid speculum was placed between the lids of the operative eye and the Jaguar LuxOR Revalia operating microscope was maneuvered into position. Zulema scissors were then used to make a conjunctival buttonhole approximately 6mm posterior to the limbus in the inferonasal quadrant. Blunt dissection was carried out to expose bare sclera, and a blunt-tipped sub-tenon?s anesthesia cannula was introduced and passed posteriorly along the globe where non-preserved plain lidocaine was injected into posterior sub-Tenon?s space. A sideport knife was used to make a paracentesis port inferotemporally. Intraocular phenylephrine/lidocaine was injected into the anterior chamber. The anterior chamber was filled with viscoelastic. A 2.4mm keratome knife was used to create a half-thickness groove at the limbus and then to construct a three-plane near-clear corneal tunnel extending 2.0mm into clear cornea superiortemporally. A flap was raised on the anterior capsule and capsulorhexis forceps were used to complete a continuous curvilinear capsulorhexis of 5.5 mm. Balanced salt solution was then used to perform cortical cleaving hydrodissection and nuclear hydrodelineation until the lens could be freely rotated within the capsular bag. The lens nucleus was then disassembled and removed within the capsular bag and iris plane using phacoemulsification. Residual cortical material was removed using the I/A handpiece. The posterior capsule was carefully polished to remove as much residual lens epithelial cells as safely possible. The capsular bag was then inflated and the anterior chamber deepened with viscoelastic. The lens implant described above was inserted into the capsular bag using the ELIZABETH [place] Injector. A Kuglen hook was used to dial the IOL into position. Residual viscoelastic was then removed first from posterior to the IOL, then from the anterior chamber using the I/A handpiece. The lens implant was noted to center nicely within the capsular bag. The incisions were stromally hydrated, and the anterior chamber was reformed using BSS. Then 0.5cc of moxifloxacin 1.0mg/ml were injected into the capsular bag and anterior chamber. The incisions were checked with a Weck spear and found to be secure. Several drops of ophthalmic povidone-iodine 5% were then applied to the eye followed by two drops of Imprimis combination prednisolone/moxifloxacin/nepafenac solution. The drapes were removed and a clear plastic protective eye shield was placed over the eye. The patient was then returned to Same Day Surgery in stable condition.
--- NOTE | 2021-12-18 13:17 | W.ANESPOSTOP ---
Postoperative Evaluation Date, Time and Location Date Performed: 12/18/21 Time Performed: 13:17 Patient Location: Day Surgery Unit Vital Signs Most Recent Imported Vital Signs: Most Recent Vital Signs Temp Pulse Resp BP Pulse Ox 36.5 C 65 16 114/42 L 100 12/18/21 11:38 12/18/21 11:38 12/18/21 11:38 12/18/21 11:38 12/18/21 11:38 Most Recent Manually Entered Vital Signs: Adult Blood Pressure: 120/40 Heart Rate: 62 Respirations: 10 Oxygen Saturation (%): 97 Temperature (C): 36.3 C Pain Score (0-10 Scale): 0 Pain Score Most Recent Pain Score: Most Recent Pain Score Pain Level 0 12/18/21 11:38 Assessment Mental Status: Awake (Alert & Oriented to Patient Baseline) Airway and Respiratory Function: Patent airway with normal (patient baseline) respiratory exam Cardiovascular Function: Hemodynamically Stable Hydration Status: Adequately Hydrated Nausea & Vomiting: No Nausea or Vomiting Pain: Pt. Denies Any Pain Peripheral Nerve Block: Patient did not receive a nerve block
[2021-12-18 13:18] VITALS: BP 120/40; PULSE 62; RESP 10; TEMPC 36.3; O2SAT 97
== END 2021-12-18 13:45 | disposition home or self-care (01) ==
PROVIDERS: PCP Nurse Practitioner Family; Visit Provider Ophthalmology
PROC: (CPT 66984; principal; 2021-12-18 14:15)
DX: H26.9 Unspecified cataract (principal); E78.5 Hyperlipidemia, unspecified; I10 Essential (primary) hypertension; E55.9 Vitamin D deficiency, unspecified; F10.10 Alcohol abuse, uncomplicated
CPT/HCPCS: 66984; V2632

== ENCOUNTER → 2022-01-19 00:45 | Outpatient (CLI) | payer MEDICARE, SELFPAY ==
--- NOTE | 2022-01-19 | DI.DEXA_ITS ---
Exam(s) XR DEXA BONE DENSITY W/WO JORGITO EXAM: XR DEXA BONE DENSITY W/WO JORGITO CLINICAL HISTORY: SCREENING FOR OSTEOPOROSIS, Z13.820, POSTMENOPAUSAL, Z78.0 TECHNIQUE: Adcrowd retargeting C densitometer COMPARISON: CR PELVIS AP from 02/06/2018 FINDINGS: Lateral view of the thoracic and lumbar spine shows no evidence of compression fractures. Bone mineral density measurements of the lumbar spine correspond to a total T-score of 0.1, in the no rmal range. Bone mineral density measurements of the left hip could not be performed due to bilateral hip prosthe ses. The left forearm bone mineral density measurements correspond to a T-score of the distal 3rd of -1.0 , at the borderline of osteopenia. Total T-score -1.8. IMPRESSION: Normal bone mineral density of the lumbar spine. Borderline osteopenia of left forearm.
== END ==
PROVIDERS: PCP Nurse Practitioner Family; Visit Provider Nurse Practitioner Family
DX: M85.88 Other specified disorders of bone density and structure, other site (principal); Z78.0 Asymptomatic menopausal state; Z96.643 Presence of artificial hip joint, bilateral
CPT/HCPCS: 77080

== ENCOUNTER → 2022-02-13 10:21 | Outpatient (BNVA) | payer MEDICARE, SELFPAY | PROVIDERS: PCP Nurse Practitioner Family; Referring Provider Nurse Practitioner Family; Visit Provider Nurse Practitioner Gerontology | DX: N32.81 Overactive bladder (principal) | CPT/HCPCS: 51798; 99214 ==

== ENCOUNTER 2022-07-10 13:55 | Outpatient (REF) | payer MEDICARE, SELFPAY ==
[2022-07-10 15:23] LABS: HCT 33.9 % (36.0-46.0); HGB 12.1 g/dL (11.2-15.7); MCH 31.4 pg (27.0-33.0); MCHC 35.7 % (32.0-36.0); MCV 88 fL (80-95); MPV 8.9 fL (8.0-11.0); Platelet Count 225 10^3/uL (130-400); RBC 3.85 10^6/uL (3.93-5.22); RDW 12.7 % (11.7-14.6); WBC 6.42 10^3/uL (4.4-10.8)
[2022-07-10 15:43] LABS: ALT 21 U/L (14-59); AST 22 U/L (15-37); Albumin 4.1 g/dL (3.4-5.0); Alkaline Phosphatase 68 U/L (46-116); Bilirubin, Direct 0.2 mg/dL (0.0-0.2); Bilirubin, Total 0.9 mg/dL (0.2-1.0); Total Protein 7.1 g/dL (6.4-8.2)
[2022-07-10 16:00] LABS: Hemoglobin A1C 5.2 % (<5.7)
== END 2022-07-10 13:56 | disposition home or self-care (01) ==
LOC: NCHCN 13:55
PROVIDERS: PCP Nurse Practitioner Family; Visit Provider Nurse Practitioner Family
DX: F10.10 Alcohol abuse, uncomplicated (principal); Z79.899 Other long term (current) drug therapy
CPT/HCPCS: 80076; 85027; 83036

== ENCOUNTER → 2022-08-01 02:11 | Outpatient (CLI) | payer MEDICARE, SELFPAY ==
--- NOTE | 2022-08-01 | DI.US_ITS ---
Exam(s) US ABDOMEN EXAM: US ABDOMEN CLINICAL HISTORY: ALCOHOL, ABUSE, F10.10, ? FATTY LIVER TECHNIQUE: Ultrasound abdomen performed using standard protocol. COMPARISON: No exams were available for comparison FINDINGS: ABDOMINAL AORTA AND IVC: Visualized portions normal caliber. PANCREAS: Normal where visualized. LIVER: Increased echogenicity of the liver. Hepatopedal flow in the Portal Vein. The liver measures 14 cm long. GALLBLADDER:No evidence of cholelithiasis. No evidence of wall thickening. No pericholecystic fluid i dentified. BILIARY SYSTEM: Common bile duct measures < 7 mm. No intrahepatic biliary ductal dilation. CORNELIUS'S SIGN: Negative. KIDNEYS: Kidneys are symmetric in size. No evidence of renal calculi. No evidence of hydronephrosis. No renal mass or cyst identified. SPLEEN: Mild splenomegaly. The spleen measures 13.6 cm. ASCITES: None seen. IMPRESSION: Hepatic steatosis. DATA REPOSITORY:
== END ==
PROVIDERS: PCP Nurse Practitioner Family; Visit Provider Nurse Practitioner Family
DX: F10.10 Alcohol abuse, uncomplicated (principal); K76.0 Fatty (change of) liver, not elsewhere classified; Y90.9 Presence of alcohol in blood, level not specified
CPT/HCPCS: 76700

== ENCOUNTER → 2022-08-21 09:39 | Outpatient (BNVA) | payer MEDICARE, SELFPAY | PROVIDERS: PCP Nurse Practitioner Family; Referring Provider Nurse Practitioner Family; Visit Provider Nurse Practitioner Gerontology | DX: N32.81 Overactive bladder (principal) | CPT/HCPCS: 99213 ==

== ENCOUNTER 2022-08-23 15:48 | Outpatient (REF) | payer MEDICARE, SELFPAY ==
[2022-08-23 15:42] LABS: FREE T4 0.95 ng/dL (0.76-1.46); TSH 1.39 uIU/mL (0.36-3.74)
--- OUTSIDE RECORDS SUMMARY | 2022-08-23 15:58 | XMS_ITS | Encounter Summary ---
:1935 Author Organization [facility] Address [address] [place] [address] Care Team Providers Name Role Phone Jessica Russell DIRECTOR INDEX Primary Care Provider Encounter Details Date Type Department Care Team Description 01/25/2021 Lab Requisition [facility] Outr Resulting Lab, Pathology & Laboratory Provider [facility] [address] [place] [address] Social History Tobacco Use Types Packs/Day Years Used Date Smoking Tobacco: Never Assessed Sex Assigned at Date Recorded Not on file documented as of this encounter Plan of Treatment Not on filedocumented as of this encounter Procedures Procedure Name Priority Date/Time Associated Diagnosis Comme nts FECAL BACTERIAL Routine 01/25/2021 3:00 EDT Resul ts for this PATHOGENS BY PCR procedure a re in the results section. documented in this encounter Results FECAL BACTERIAL PATHOGENS BY PCR (01/25/2021 3:00 EDT) [facility] Method Time Signature Salmonella PCR Negative Negative 01/25/2021 [facility] 22:51 [facility]T [facility] Shigella/Enteroin Negative Negative 01/25/2021 [facility] vasive E. coli 22:51 EDT [facility] HN LAB Negative Negative 01/25/2021 [facility] CAMPYLOBACTER PCR 22:51 EDT [facility] Shiga Toxin PCR Negative Negative 01/25/2021 [facility] 22:[facility] Specimen Anatomical Collection Method Collection Time Receive d Time (Source) Location / / Volume Laterality Feces SPECIMEN FROM 01/25/2021 3:00 01/25/2021 [facility] / Unknown EDT 16:59 EDT Provider Outr Resulting Lab MICROBIOLOGY - GENERAL ORD ERABLES Performing Organization Address City/State/ZIP Code Phon e Number [facility] [address] [place] [address] SERVICES documented in this encounter Visit Diagnoses Not on filedocumented in this encounter Care Teams Water Resource Engineering Specialist Relationship Specialty Start Date End Date Jessica Russell, DIRECTOR INDEX PCP - General 03/23/21 [address] [place] [address] documented as of this encounter
--- OUTSIDE RECORDS SUMMARY | 2022-08-23 15:58 | XMS_ITS | Encounter Summary ---
:[address] [facility] Address [address] [place] [address] Care Team Providers Name Role Phone Jessica Russell HEALTHCARE ADMINISTRATIVE ASSISTANT Primary Care Provider Encounter Details Date Type Department Care Team Description 01/25/2021 Lab Requisition [facility] Outr Resulting Lab, Pathology & Laboratory Provider [facility] [address] [place] [address] Social History Tobacco Use Types Packs/Day Years Used Date Smoking Tobacco: Never Assessed Sex Assigned at Date Recorded Not on file documented as of this encounter Plan of Treatment Not on filedocumented as of this encounter Procedures Procedure Name Priority Date/Time Associated Comments Diagnosis GIARDIA AND Routine 01/25/2021 3:00 Results for this CRYPTOSPORIDIUM ANTIGENS EDT pro cedure are in the results section. OVA/PARASITE EXAM Routine 01/25/2021 3:00 Results for this EDT procedure are i n the results section. documented in this encounter Results GIARDIA AND CRYPTOSPORIDIUM ANTIGENS (01/25/2021 3:00 EDT) Component Value Ref Range Test Analysis Performed Pathologis t Method Time At Signature Giardia and Cryptosporidium Cryptosporidium [facility] Cryptosporidium Antigen Neg and Antigen Neg and 1 11:14 CE NTER Giardia Antigen Giardia Antigen EDT LABORATO RY Neg Neg SERVICES Specimen Anatomical Collection Method Collection Time Receive d Time (Source) Location / / Volume Laterality Feces SPECIMEN FROM 01/25/2021 3:00 01/25/2021 [facility] / Unknown EDT 16:59 EDT Provider Outr Resulting Lab MICROBIOLOGY - GENERAL ORD ERABLES Performing Organization Address City/State/ZIP Code Phon e Number [facility] [address] [place] [address] SERVICES OVA/PARASITE EXAM (01/25/2021 3:00 EDT) Patholo gist Method Time Signature Parasite No ova and 01/26/2021 [facility] parasites 12:46 EDT CENTER seen. LABORATORY SERVICES Specimen Anatomical Collection Method Collection Time Receive d Time (Source) Location / / Volume Laterality Feces SPECIMEN FROM 01/25/2021 3:00 01/25/2021 [facility] / Unknown EDT 16:59 EDT Narrative [facility] - 01/26/2021 12:46 EDT (If Cryptosporidium, Cyclospora, or Micr osporidium are suspected, specific tests must be requested.) Single negative specimen does not rule out the possibility of a parasitic infection. Provider Outr Resulting Lab MICROBIOLOGY - GENERAL ORD ERABLES Performing Organization Address City/State/ZIP Code Phon e Number [facility] [address] [place] [address] SERVICES documented in this encounter Visit Diagnoses Not on filedocumented in this encounter Care Teams Filing Writer Relationship Specialty Start Date End Date Jessica Russell, HEALTHCARE ADMINISTRATIVE ASSISTANT PCP - General 03/23/21 [address] [place] [address] documented as of this encounter
--- OUTSIDE RECORDS SUMMARY | 2022-08-23 15:58 | XMS_ITS | Clinical Summary ---
:1935 Author Organization [facility] Address [address] [place] [address] Care Team Providers Name Role Phone Jessica Russell CONE EXAMINER Primary Care Provider Social History Tobacco Use Types Packs/Day Years Used Date Smoking Tobacco: Never Assessed Sex Assigned at Date Recorded Not on file Plan of Treatment Health Maintenance Due Date Last Done Comments COVID-19 Vaccine (#1) 04/05/1936 Fall Risk Screening 2002 Insurance Payer Benefit Plan / Subscriber ID Effective Phone Address T ype Group Dates MEDICARE MEDICARE A/B [id number] 2002-Pres [address] edicare GL ent [id number] [facility] [place] [address] AETNA AETNA [facility] [id number] 2019-Pres [phone] [address] SUPPLEMENTAL ent [id number] [place] [address] Avis Love Personal/Family Self 1935 [address] (Home) [place] [address] Avis Love Personal/Family Self 1935 [address] (Home) [place] [address] Avis Love Personal/Family Self 1935 [address] (Home) [place] [address] Avis Love Personal/Family Self 1935 [address] (Home) [place] [id number] Care Teams Knuckle Strap Sewer Relationship Specialty Start Date End Date Jessica Russell, CONE EXAMINER PCP - General 03/23/21 [address] [place] [address]
--- OUTSIDE RECORDS SUMMARY | 2022-08-23 15:58 | XMS_ITS | Encounter Summary ---
:1935 Author Organization [facility] Address [address] [place] [address] Care Team Providers Name Role Phone ColemanJessica singh Shamir OPERATIONS INTELLIGENCE SUPERINTENDENT Primary Care Provider Encounter Details Date Type Department Care Team Description 04/18/2021 Lab Requisition [facility] Jose G Nelson Encounter for screening for malignant neoplasm of colon; Pathology & MD Ricki Diarrhea, unspecified; Laboratory Medicine [address] [facility] Abnormal weight loss [facility] [address] [place] [phone] Social History Tobacco Use Types Packs/Day Years Used Date Smoking Tobacco: Never Assessed Sex Assigned at Date Recorded Not on file documented as of this encounter Plan of Treatment Not on filedocumented as of this encounter Procedures Procedure Name Priority Date/Time Associated Diagnosis Comme nts SURGICAL PATHOLOGY Today 04/17/2021 7:31 EDT Encounter for R esults for this screening for procedure are in malignant neoplasm the resul ts of colon section. Diarrhea, unspecified Abnormal weight loss documented in this encounter Results SURGICAL PATHOLOGY (04/17/2021 7:31 EDT) Component Value Ref Test Analysis Performed At [facility] Range Method Time Signature Note to The following 04/21/[address] [facility] MEDICAL Patient pathology results 9:04 [facility] have been LABORATORY interpreted by SERVICES your pathologist and may be available to you before your health provider has had the opportunity to review them. Please allow time for your provider to receive these results and explore management options, if applicable. Final A. DUODENUM, BIOPSY: 04/21/[address] [facility] MEDI [place] Diagnosis - No significant pathologic abnormality 9:04 [facility] LAB[facility]ORY B. DUODENUM, BULB, BIOPSY: SER VICES - Patchy increased intraepithelial lymphocytes, nonspecific - Preserved villous architecture C. STOMACH, ANTRUM, BIOPSY: - Mild chronic gastritis and reactive gastropathy D. STOMACH, BODY, BIOPSY: - Mild chronic gastritis E. ESOPHAGUS, DISTAL, BIOPSY: - Squamocolumnar mucosa with no significant pathologic abnor mality F. COLON, CECUM, BIOPSY: - No significant pathologic abnormality - Melanosis coli G. COLON, ASCENDING, POLYP, BIOPSY: - Tubular adenoma H. COLON, ASCENDING, BIOPSY: - No significant pathologic abnormality - Melanosis coli I. COLON, TRANSVERSE, BIOPSY: - No significant pathologic abnormality - Melanosis coli J. COLON, DESCENDING, ? POLYP? , BIOPSY: - Tubular adenoma K. COLON, TRANSVERSE, ? POLYP? , BIOPSY: - Tubular adenoma L. COLON, DESCENDING, BIOPSY: - No significant pathologic abnormality - Melanosis coli M. COLON, SIGMOID, BIOPSY: - No significant pathologic abnormality - Melanosis coli N. COLON, DISTAL SIGMOID, POLYP, BIOPSY: - Tubular adenoma O. RECTUM, ? POLYP? , BIOPSY: - Hyperplastic polyp Diagnosis Immunoperoxidase stains were performed on this case to further characterize the lesion. 04/21/[address] [facility] MEDICAL Comment 9:04 [facility] ANTIBODY(CLONE)(BLOCK):RESULT LABORATORY H pylori (Rabbit Monoclonal (SP48), [place]) (C) : Negative SERVICES NOTE: One or more of the re agents used in immunoperoxidase testing in this case may not have been cleared or approved by the U.S. Food and Drug Administration (FDA). The FDA has determined that such cl earance or approval is not n ecessary. These tests are used for clinical purposes. They should not be regarded as investigational or for research. These reagents' performance characteristics have been de termined by [facility] and/or by the referring laboratory. The positive and negative controls worked appropriately. If immunoperoxidase staining has been performed on alcoh ol fixed cytology specimens, which has not been fully validated, the assays should be interpreted with caution and correlated with clinical data. This laboratory is certified under the Clinical Laborato ry Improvement Amendments of 1988 (CLIA-88) as qualified to perform high complexity clinical laboratory testing. Attestation By the signature 04/21/[address] [facility] MEDICA L Electronically below, the 9:04 [facility] signed by attending LABORATORY Adriana Ashraf, physician LAMINE GALVAN on 04/21 certifies that at 09 04 they have 1) personally conducted a gross and/or microscopic examination of the described specimen(s), and/or personally interpreted the results of laboratory testing of the described specimen(s), and 2) personally rendered or confirmed the above diagnosis. Clinical History diarrhea, 04/21/[address] [facility] MEDICAL History unintentional 9:04 [facility] weight loss, LABORATORY nausea, early SERVICES satiety, alcohol use, irregular Z-line; clinical diagnosis code: Z12.11, R19.7, R63.4 Gross A. 04/21/[address] [facility] MEDICAL Description Received in formalin kenneth d with proper patient identification (initials L, J) and duodenum are 3 light ayers tissues ranging in size from 0.2 x 0.1 x 0.1 cm up to 0.3 x 0.1 x 0.1 cm. Submitted intact in A1. 9:04 [facility] LABORATORY B. SERVICES Received in formalin kenneth d with proper patient identification (initials L, J) and duodenal bulb is a light ayers tissue measuring 0.3 x 0.2 x 0.2 cm. Submitted intact in B1. C. Received in formalin kenneth d with proper patient identification (initials L, J) and gastric antrum is a light ayers tissue measuring 0.6 x 0.2 x 0.1 cm. Submitted intact in C1. D. Received in formalin kenneth d with proper patient identification (initials L, J) and gastric body are 2 light ayers tissues measuring 0.2 x 0.2 x 0.2 cm and 0.3 x 0.2 x 0.1 cm. Submitted intact in D1. E. Received in formalin kenneth d with proper patient identification (initials L, J) and distal esophagus is a ayers-white tissue measuring 0.3 x 0.2 x 0.1 cm. Submitted intact in E1. F. Received in formalin kenneth d with proper patient identification (initials L, J) and cecum bx is a ayers-brown tissue measuring 0.4 x 0.1 x 0.1 cm. Submitted intact in F1. G. Received in formalin kenneth d with proper patient identification (initials L, J) and ascending colon polyp, cold bx forcep is a light ayers tissue measuring 0.3 x 0.2 x 0.1 cm. Submitted intact in G1. H. Received in formalin kenneth d with proper patient identification (initials L, J) and ascending colon bx's is a light ayers tissue measuring 0.5 x 0.2 x 0.1 cm. Submitted intact in H1. I. Received in formalin kenneth d with proper patient identification (initials L, J) and transverse colon bx's is a light ayers tissue measuring 0.2 x 0.2 x 0.1 cm. Submitted intact in I1. J. Received in formalin kenneth d with proper patient identification (initials L, J) and proximal descending colon polyp, cold bx forcep is a light ayers tissue measuring 0.5 x 0.2 x 0.1 cm. Submitted intact in J1. K. Received in formalin kenneth d with proper patient identification (initials L, J) and transverse colon polyp, cold bx forceps is a light ayers tissue measuring 0.3 x 0.2 x 0.1 cm. Submitted intact in K1. L. Received in formalin kenneth d with proper patient identification (initials L, J) and descending colon bx's is a light ayers tissue measuring 0.3 x 0.2 x 0.2 cm. Submitted intact in L1. M. Received in formalin kenneth d with proper patient identification (initials L, J) and sigmoid bx's is a light ayers tissue measuring 0.3 x 0.2 x 0.1 cm. Submitted intact in M1. N. Received in formalin kenneth d with proper patient identification (initials L, J) and distal sigmoid polyp, cold snare is a light ayers tissue measuring 0.2 x 0.2 x 0.2 cm. Submitted intact in N1. O. Received in formalin kenneth d with proper patient identification (initials L, J) and rectal polyp cold snare is a light ayers tissue measuring 0.3 x 0.3 x 0.1 cm. Submitted intact in O1. LAMINE WOODARD(ASCP) 04/18/2021 19:51 Performing Lab [facility] 04/21/[address] [facility] M EDICAL 9:04 [facility] LABORATORY SERVICES Scanned Images 04/21/[address] [facility] MEDICAL 9:04 [facility] LABORATORY SERVICES Specimen Anatomical Collection Method Collection Time Receive d Time (Source) Location / / Volume Laterality Tissue SPECIMEN FROM 04/17/2021 7:31 04/18/2021 RECTUM / Unknown EDT 17:56 EDT Tissue specimen ENTIRE SMALL 04/17/2021 7:31 (specimen) INTESTINE / EDT 17:56 EDT Unknown Tissue specimen ENTIRE STOMACH / 04/17/2021 7:31 04/18 (specimen) Unknown EDT 17:56 EDT Tissue specimen ENTIRE STOMACH / 04/17/2021 7:31 04/18 (specimen) Unknown EDT 17:56 EDT Tissue specimen ENTIRE ESOPHAGUS / 04/17/2021 7:31 (specimen) Unknown EDT 17:56 EDT Tissue specimen CECUM STRUCTURE / 04/17/2021 7:31 03/24 (specimen) Unknown EDT 17:56 EDT Tissue specimen ASCENDING COLON 04/17/2021 7:31 2020 (specimen) STRUCTURE / EDT 17:56 EDT Unknown Tissue specimen ASCENDING COLON 04/17/2021 7:31 2020 (specimen) STRUCTURE / EDT 17:56 EDT Unknown Tissue specimen ENTIRE TRANSVERSE 04/17/2021 7:31 03/24 (specimen) COLON / Unknown EDT 17:56 EDT Tissue specimen DESCENDING COLON 04/17/2021 7:31 04/18 (specimen) STRUCTURE / EDT 17:56 EDT Unknown Tissue specimen ENTIRE TRANSVERSE 04/17/2021 7:31 03/24 (specimen) COLON / Unknown EDT 17:56 EDT Tissue specimen DESCENDING COLON 04/17/2021 7:31 04/18 (specimen) STRUCTURE / EDT 17:56 EDT Unknown Tissue specimen ENTIRE SIGMOID 04/17/2021 7:31 021 (specimen) COLON / Unknown EDT 17:56 EDT Tissue specimen ENTIRE SIGMOID 04/17/2021 7:31 021 (specimen) COLON / Unknown EDT 17:56 EDT Tissue specimen SPECIMEN FROM 04/17/2021 7:31 04/18/20 21 (specimen) RECTUM / Unknown EDT 17:56 EDT Jose G Nelson MD PATHOLOGY ORDERABLES Performing Organization Address City/State/ZIP Code Phon e Number [facility] [address] [place] [address] SERVICES documented in this encounter Visit Diagnoses Diagnosis Encounter for screening for malignant ne oplasm of colon Special screening for malignant neoplasm s, colon Diarrhea, unspecified Abnormal weight loss Loss of weight documented in this encounter Care Teams Ski Patrol Director Relationship Specialty Start Date End Date Jessica Russell, OPERATIONS INTELLIGENCE SUPERINTENDENT PCP - General 03/23/21 [address] [place] [id number] documented as of this encounter
== END 2022-08-23 15:49 | disposition home or self-care (01) ==
LOC: NCHCN 15:48
PROVIDERS: PCP Nurse Practitioner Family; Visit Provider Nurse Practitioner Family
DX: F41.9 Anxiety disorder, unspecified (principal); F10.10 Alcohol abuse, uncomplicated
CPT/HCPCS: 84439; 84443

== ENCOUNTER 2023-01-29 18:39 | Outpatient (REF) | payer MEDICARE, SELFPAY ==
[2023-01-29 15:56] LABS: ALT 27 U/L (14-59); AST 22 U/L (15-37); Albumin 4.1 g/dL (3.4-5.0); Alkaline Phosphatase 71 U/L (46-116); Anion Gap 5.8 mmol/L (3-11); BUN 32 mg/dL (7-18); Bilirubin, Total 0.5 mg/dL (0.2-1.0); CO2 27.2 mmol/L (21.0-32.0); CREATININE 1.1 mg/dL (0.55-1.02); Calcium 9.4 mg/dL (8.5-10.1); Chloride 106 mmol/L (98-107); Estimated GFR 49.24 (mL/min/1.73m2); Glucose 116 mg/dL (74-106); Potassium 4.7 mmol/L (3.5-5.1); Sodium 139 mmol/L (136-145); Total Protein 7.5 g/dL (6.4-8.2)
== END 2023-01-29 18:40 | disposition home or self-care (01) ==
LOC: NCHCN 18:39
PROVIDERS: PCP Nurse Practitioner Family; Visit Provider Nurse Practitioner Family
DX: I10 Essential (primary) hypertension (principal)
CPT/HCPCS: 80053

== ENCOUNTER → 2023-02-12 09:42 | Outpatient (BNVA) | payer MEDICARE, SELFPAY | PROVIDERS: PCP Nurse Practitioner Family; Referring Provider Nurse Practitioner Family; Visit Provider Nurse Practitioner Gerontology | DX: N32.81 Overactive bladder (principal) | CPT/HCPCS: 51798; 99214 ==

== ENCOUNTER 2023-05-13 08:43 | Outpatient (REF) | payer MEDICARE, SELFPAY ==
[2023-05-13 17:25] LABS: Calculated LDL 178 mg/dL (<100); Cholesterol 263 mg/dL (<200); HDL Cholesterol 58 mg/dL (40-60); Triglyceride 135 mg/dL (<150)
[2023-05-15 12:12] LABS: Lyme Ab w Rflx to Lyme Confirm Negative (Negative)
[2023-05-16 20:49] LABS: Anaplasma phagocytophilum Negative (Negative); B. miyamotoi PCR Negative (Negative); Babesia divergens/MO-1 Negative (Negative); Babesia duncani Negative (Negative); Babesia microti Negative (Negative); Ehrlichia chaffeensis Negative (Negative); Ehrlichia ewingii/canis Negative (Negative); Ehrlichia muris eauclairensis Negative (Negative)
== END 2023-05-13 08:44 | disposition home or self-care (01) ==
LOC: NCHCN 08:43
PROVIDERS: PCP Nurse Practitioner Family; Visit Provider Nurse Practitioner Family
DX: E78.5 Hyperlipidemia, unspecified (principal); T14.8XXA Other injury of unspecified body region, initial encounter; W57.XXXA Bitten or stung by nonvenomous insect and other nonvenomous arthropods, initial encounter
CPT/HCPCS: 80061; 87798; 86618

== ENCOUNTER → 2023-05-22 10:41 | Outpatient (BNVA) | payer MEDICARE, SELFPAY | PROVIDERS: PCP Nurse Practitioner Family; Referring Provider Nurse Practitioner Family; Visit Provider Nurse Practitioner Gerontology | DX: N32.81 Overactive bladder (principal); F10.10 Alcohol abuse, uncomplicated | CPT/HCPCS: 51798; 99213 ==

== ENCOUNTER 2023-11-11 18:27 | Outpatient (REF) | payer MEDICARE, SELFPAY ==
[2023-11-11 15:33] LABS: HCT 35.6 % (36.0-46.0); HGB 12.4 g/dL (11.2-15.7); MCH 29.4 pg (27.0-33.0); MCHC 34.8 % (32.0-36.0); MCV 84 fL (80-95); MPV 8.9 fL (8.0-11.0); Platelet Count 243 10^3/uL (130-400); RBC 4.22 10^6/uL (3.93-5.22); RDW 13.3 % (11.7-14.6); WBC 7.33 10^3/uL (4.4-10.8)
[2023-11-11 15:42] LABS: Bilirubin Negative (Negative); Blood Negative (Negative); Clarity Clear (Clear); Glucose Negative (Negative); Ketones Negative (Negative); Leukocyte Esterase Negative (Negative); Nitrite Negative (Negative); Urobilinogen 0.2 mg/dL (Up to 0.2)
[2023-11-11 16:49] LABS: Anion Gap 9.8 mmol/L (3-11); BUN 28 mg/dL (7-18); CO2 27.2 mmol/L (21.0-32.0); CREATININE 1.2 mg/dL (0.55-1.02); Calcium 9.8 mg/dL (8.5-10.1); Chloride 104 mmol/L (98-107); Estimated GFR 44.08 (mL/min/1.73m2); Glucose 103 mg/dL (74-106); Potassium 4.4 mmol/L (3.5-5.1); Sodium 141 mmol/L (136-145); TSH 1.27 uIU/mL (0.36-3.74); Vitamin B12 923 pg/mL (193-986)
== END 2023-11-11 18:28 | disposition home or self-care (01) ==
LOC: NCHCN 18:27
PROVIDERS: PCP Nurse Practitioner Family; Referring Provider Nurse Practitioner Family; Visit Provider Nurse Practitioner Family
DX: R41.3 Other amnesia (principal); N32.81 Overactive bladder
CPT/HCPCS: 80048; 85027; 81003; 82607; 84443

== ENCOUNTER 2024-01-08 17:24 | Outpatient (REF) | payer MEDICARE, SELFPAY ==
[2024-01-08 17:18] LABS: LDL CHOLESTEROL 102 mg/dL (<100)
[2024-01-08 17:53] LABS: HDL Cholesterol 71 mg/dL (40-60)
== END 2024-01-08 17:25 | disposition home or self-care (01) ==
LOC: NCHCN 17:24
PROVIDERS: PCP Nurse Practitioner Family; Visit Provider Nurse Practitioner Family
DX: E78.5 Hyperlipidemia, unspecified (principal)
CPT/HCPCS: 83721; 83718

== ENCOUNTER → 2024-01-22 09:13 | Outpatient (BNVA) | payer MEDICARE, SELFPAY | PROVIDERS: PCP Nurse Practitioner Family; Referring Provider Nurse Practitioner Family; Visit Provider Nurse Practitioner Gerontology | DX: N32.81 Overactive bladder (principal) | CPT/HCPCS: 51798; 99213 ==

== ENCOUNTER 2024-06-05 11:38 | Outpatient (REF) | payer MEDICARE, SELFPAY ==
[2024-06-05 15:36] LABS: HCT 34.2 % (36.0-46.0); HGB 11.8 g/dL (11.2-15.7); MCH 29.6 pg (27.0-33.0); MCHC 34.5 % (32.0-36.0); MCV 86 fL (80-95); MPV 9.2 fL (8.0-11.0); Platelet Count 236 10^3/uL (130-400); RBC 3.98 10^6/uL (3.93-5.22); RDW 13.2 % (11.7-14.6); RDW-SD 41.1 fL; WBC 6.57 10^3/uL (4.4-10.8)
[2024-06-05 15:58] LABS: ALT 21 U/L (14-59); AST 22 U/L (15-37); Alkaline Phosphatase 73 U/L (46-116); BUN 23 mg/dL (7-18); Bilirubin, Total 0.75 mg/dL (0.2-1.0); CREATININE 1.1 mg/dL (0.55-1.02); Calcium 9.6 mg/dL (8.5-10.1); Chloride 105 mmol/L (98-107); Estimated GFR 48.94 (mL/min/1.73m2); Glucose 101 mg/dL (74-106); LDL CHOLESTEROL 92 mg/dL (<100); Potassium 4.5 mmol/L (3.5-5.1); Sodium 141 mmol/L (136-145); Total Protein 7.2 g/dL (6.4-8.2)
== END 2024-06-05 11:39 | disposition home or self-care (01) ==
LOC: LBN 11:38
PROVIDERS: PCP Nurse Practitioner Family; Referring Provider Nurse Practitioner Family; Visit Provider Nurse Practitioner Family
DX: I10 Essential (primary) hypertension (principal); Z23 Encounter for immunization; R41.3 Other amnesia; Z81.8 Family history of other mental and behavioral disorders; F41.9 Anxiety disorder, unspecified; F32.9 Major depressive disorder, single episode, unspecified; F43.20 Adjustment disorder, unspecified
CPT/HCPCS: 80053; 83721; 85027

== ENCOUNTER → 2024-07-29 08:32 | Outpatient (BNVA) | payer MEDICARE, SELFPAY | PROVIDERS: PCP Nurse Practitioner Family; Visit Provider Nurse Practitioner Gerontology | DX: N32.81 Overactive bladder (principal); F41.9 Anxiety disorder, unspecified; R06.83 Snoring | CPT/HCPCS: 51798; 99214 ==

== ENCOUNTER → 2024-08-06 09:54 | Outpatient (BNVA) | payer MEDICARE, SELFPAY | PROVIDERS: PCP Nurse Practitioner Family; Referring Provider Nurse Practitioner Family; Visit Provider Nurse Practitioner Adult Health | DX: R41.3 Other amnesia (principal) | CPT/HCPCS: 99215; G2212 ==

== ENCOUNTER 2024-08-30 11:27 | Inpatient (IN) | payer MEDICARE, SELFPAY ==
[2024-08-30] VITALS (17 sets, daily range): BP systolic 135–166; BP diastolic 38–58; PULSE 66–88; RESP 11–19; TEMP 36.6–36.9; O2SAT 95–100
--- NOTE | 2024-08-30 11:45 | DI.CT_ITS ---
Exam(s) CT BRAIN NECK CTA EXAM: CT BRAIN NECK CTA CLINICAL HISTORY: left sided weakness. TECHNIQUE: Imaging Protocol: Axial CT angiography was performed with multi-slice acquisition and mu lti-planar and MIP reconstructions. CONTRAST MATERIAL: Intravenous: Omnipaque 350 Contrast volume:70 ml COMPARISON: No exams were available for comparison FINDINGS: CT Head W/O and W contrast: Ventricles and Extra axial spaces: Normal in size and morphology for the patient's age. Hemorrhage: None. Cerebral parenchyma: No evidence of acute infarct or mass. Midline shift: None. Brainstem/Cerebellum: No acute findings.. Calvarium: Hyperostosis frontalis interna Visualized Paranasal sinuses/Mastoids: Clear. Soft Tissues: Unremarkable. Enhancement: Normal. CTA Brain W: Internal Carotid Arteries: Petrous: Normal. Cavernous: Atherosclerotic calcification but no significant stenosis. Cerebral: Normal. Middle Cerebral Arteries: Right: No aneurysm, occlusion or significant stenosis. Left: No aneurysm, occlusion or significant stenosis. Anterior Cerebral Arteries: Right: No aneurysm, occlusion or significant stenosis. Left: No aneurysm, occlusion or significant stenosis. Posterior cerebral Arteries: Right: No aneurysm, occlusion or significant stenosis. Left: No aneurysm, occlusion or significant stenosis. Vertebral Arteries: Right: No aneurysm, occlusion or significant stenosis. Left: No aneurysm, occlusion or significant stenosis. Basilar Artery: No aneurysm, occlusion or significant stenosis. CTA Neck W: Common Carotid: No visible plaque. Right: No dissection, occlusion or significant stenosis. Left: No dissection, occlusion or significant stenosis. External Carotid: No visible plaque Right: No dissection, occlusion or significant stenosis. Left: No dissection, occlusion or significant stenosis. Internal Carotid: No visible plaque. Right: No dissection, occlusion or significant stenosis. Left: No dissection, occlusion or significant stenosis. Vertebral Artery: No visible plaque or calcifications. Right: No dissection, occlusion or significant stenosis. Left: No dissection, occlusion or significant stenosis. Lung Apices: No acute findings. Bones: No acute abnormality. Soft Tissues: Normal. IMPRESSION: 1. CTA brain: Mild calcification in the cavernous internal carotid arteries, otherwise normal CTA exa mination of the [place]. 2. Head CT: Unremarkable CT Head. 3. CTA neck: Normal CTA examination of the neck. No visible atherosclerotic plaque. RADIATION DOSE DELIVERED: Total DLP DATA REPOSITORY: All CT scans at this facility are submitted to the National Radiology Data Registry (NRDR) Dose Index Registry (DIR) with the [employer] (ACR). RADIATION OPTIMIZATION: All CT scans at this facility use at least one of these dose optimization te chniques: automated exposure control; mA and/or kV adjustment per patient size (includes targeted exa ms where dose is matched to clinical indication); or iterative reconstruction.
--- NOTE | 2024-08-30 11:45 | RT.EKG_ITS ---
APPROVED REPORT Exam: Resting ECG Reason for Exam: cva Patient Location: E HR:77 bpm ECG Measurements Heart Rate 77 AXIS TX 233 P 55 QRSd 143 QRS -23 QT 402 T 118 QTc 446 Conclusion Sinus rhythm...normal P axis, V-rate 60- 99 Atrial premature complexes...SV complexes w/ short R-R intvls Prolonged TX interval...TX >220, V-rate 50- 90 Left bundle branch block...QRSd>120, broad/notched R
--- NOTE | 2024-08-30 11:48 | ED.GENADUL_ITS ---
Discharge Plan Disposition Patient Disposition: Admit to [facility] Condition: Stable Discharge Details Chief Complaint: CVA/TIA Clinical Impression: Acute CVA (cerebrovascular accident) Primary Care Provider: Jessica Russell ED Provider: Harry Emmanuel Home Meds and New Rx's Prescriptions: No Action biotin 1 mg capsule 1 mg PO DAILY mirabegron [Myrbetriq] 50 mg tablet extended release 24 hr 50 mg PO DAILY Qty: 90 3RF prevagen 1 ea PO DIRECTED buspirone 10 mg tablet 10 mg PO TID Qty: 90 3RF cholecalciferol (vitamin D3) 25 mcg (1,000 unit) capsule 25 mcg PO DAILY acetaminophen [Tylenol Arthritis Pain] 650 mg tablet extended release 1,300 mg PO Q12H lisinopril 5 mg tablet 5 mg PO DAILY Qty: 90 3RF simvastatin 10 mg tablet 10 mg PO .Every other night Qty: 45 3RF HPI General Mode of arrival: wheelchair . Date/Time Provider Initiated Documentation: 08/30/24 11:28 . Limitations to Documentation: no limitations . Information obtained by: patient . History of Present Illness 88 year old F presents to the emergency department with the chief complaint of left sided weakness, described as moderate, Patient started experiencing this day(s) (1) and it has been constant. No relieving factors improve symptom(s), No exacerbating factors reported . Patient notes denies chest pain, fever/chills and shortness of breath. Patient did receive the following treatments prior to arrival, none Related Data Home Medications ?Medication ?Instructions ?Recorded ?Confirmed acetaminophen 650 mg 1,300 mg PO Q12H 07/11/22 08/30/24 tablet,extended release (Tylenol Arthritis Pain) cholecalciferol (vitamin D3) 25 25 mcg PO DAILY 07/11/22 08/30/24 mcg (1,000 unit) capsule mirabegron 50 mg tablet,extended 50 mg PO DAILY #90 tabs 01/22/24 08/30/24 release 24 hr (Myrbetriq) lisinopril 5 mg tablet 5 mg PO DAILY #90 tabs 07/01/24 08/30/24 simvastatin 10 mg tablet 10 mg PO .Every other night #45 07/01/24 08/30/24 tab-caps biotin 1 mg capsule 1 mg PO DAILY 07/29/24 08/30/24 buspirone 10 mg tablet 10 mg PO TID #90 tabs 08/04/24 08/30/24 prevagen 1 ea PO DIRECTED 08/06/24 08/30/24 Previous Rx's ?Medication ?Instructions ?Recorded mirabegron 50 mg tablet,extended 50 mg PO DAILY #90 tabs 01/22/24 release 24 hr (Myrbetriq) lisinopril 5 mg tablet 5 mg PO DAILY #90 tabs 07/01/24 simvastatin 10 mg tablet 10 mg PO .Every other night #45 07/01/24 tab-caps buspirone 10 mg tablet 10 mg PO TID #90 tabs 08/04/24 Allergies Allergy/AdvReac Type Severity Reaction Status Date / Time codeine AdvReac Intermediate Nausea Verified 08/30/24 11:40 oxybutynin AdvReac Mild dry mouth Verified 08/30/24 11:40 General Stated Complaint: CVA/TIA JETHRO: 3 Review of Systems All systems reviewed & are unremarkable except as noted in HPI and below Constitutional Constitutional: Denies chills, Denies fever(s) and Reports weakness Cardiovascular Cardiovascular: Denies chest pain and Denies dyspnea Respiratory Respiratory: Denies cough and Denies dyspnea Gastrointestinal Gastrointestinal: Denies abdominal pain, Denies nausea and Denies vomiting Neurologic Neurologic: Denies convulsions and Reports weakness Exam Const General: no acute distress Orientation: alert [facility] Head: normal to inspection Ears: external ears normal General nose exam: external nose normal Mouth: moist mucous membranes Eyes General: appearance normal, both eyes and all related structures Neck Neck: normal visual inspection Resp Effort & Inspection: normal respiratory effort and able to speak in complete sentences Cardio Rate: regular rate Skin General skin exam: no rashes or lesions noted Neuro General: patient alert and patient oriented x3 Cranial Nerves: PERRL Extrem General: normal to inspection Psych Mental Status: mental status grossly normal Course Vital Signs Vital signs: Vital Signs Temperature 36.6 C 08/30/24 11:28 Pulse 80 08/30/24 11:28 Respiratory Rate 14 08/30/24 11:28 Blood Pressure 156/39 H 08/30/24 11:28 Pulse Oximetry 96 08/30/24 11:28 Temperature 36.6 C 08/30/24 11:28 Temperature Source Oral 08/30/24 11:28 Pulse 80 12/08/24 11:28 Respiratory Rate 14 08/30/24 11:28 Respiratory Effort Normal 08/30/24 11:44 Blood Pressure 156/39 H 08/30/24 11:28 Pulse Oximetry 96 08/30/24 11:28 Oxygen Delivery Method Room Air 08/30/24 11:28 Oxygen Flow Rate 0 08/30/24 11:28 Pain Level 0 08/30/24 11:28 Medical Decision Making 88-year-old female with a history of hypertension comes in complaining that she has been having trouble walking and left-sided weakness since yesterday. She believes her last known well was around 1 PM yesterday. Her daughter noticed that she was having trouble walking here. Patient denies any headaches, chest pain, difficulty breathing. She has noted to have a slight left lower facial droop, otherwise cranial nerves are intact. She is oriented x 4. She does have some weakness in the left hand when testing handgrips compared to the right. She is able to hold arms and legs up but does have drift in the left arm and leg but did not hit the bed. NIH on my exam is 3 due to the leg and arm drift and also facial asymmetry. She is well at that the window for tPA and I will send 24 hours so unlikely to be an interventional candidate. Will proceed with CBC, CMP, EKG and troponins and telemetry monitoring and also obtain CT brain and neck and also teleneurology consult. Patient's labs and imaging show no significant findings. She is stable and still with weakness. She was evaluated by teleneurology and feels she likely has a small thalamic stroke. They recommend initiating Plavix and aspirin, as well as atorvastatin. I also recommend telemetry monitoring and MRI and echocardiogram. Discussed with hospitalist who accepts for admission. Differential Diagnosis Differential Diagnosis: CVA, TIA, electrolyte abnormality Lab Data Lab results reviewed: Yes I reviewed the patient's lab results. ECG Data Attestation: I personally reviewed and interpreted this ECG (s) as follows: Prior ECG tracings: not available for review Interpretation: Sinus rhythm, rate of 77, TN 233, left bundle branch block, no STEMI Quality:SDOH Health Related Social Needs: No Data to Display PFSH All Active Problems (Updated 08/30/24 @ 15:29 by Harry Emmanuel MD) Acute CVA (cerebrovascular accident) (Acute) CVA (cerebral vascular accident) (Chronic) Family history of dementia (Acute) Memory changes (Acute) Anxiety (Chronic 06/03/07) Left bundle branch block (Acute 10/27/19) Presence of hip joint prosthesis (Acute 05/10/21) Edema (Acute 10/29/19) 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 (Acute 03/04/15) Disorder of nail (Acute 10/24/20) Follicular cyst of skin and subcutaneous tissue (Acute 05/09/22) Gastritis (Acute 04/24/21) Sinusitis (Acute 01/23/16) Essential hypertension (Acute 03/03/20) Hearing loss (Acute 02/09/19) Epiphora (Acute 05/13/23) Adjustment disorder (Chronic 04/19/20) Major depression (Chronic 04/04/05) Mucoid cyst of joint (Acute) right hand third digit Sensorineural hearing loss of combined sites, bilateral (Acute 06/08/16) Tinnitus (Acute 06/27/15) Foreign body in right ear (Acute) Cerumen impaction (Acute) Abnormal auditory perception (Acute) Scleral hemorrhage of right eye (Acute) Overactive bladder (Acute 12/08/23) Nuclear sclerotic cataract of right eye (Acute 03/11/17) Medical History Nondependent alcohol abuse, 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) Peripheral edema Right shoulder pain (10/27/19) Hyperlipidemia (10/10/05) Urinary urgency Vitamin D deficiency (03/03/20) Vertigo Surgical History 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) History of esophagogastroduodenoscopy (EGD) History of colonoscopy History of cataract surgery Family History Father , At age 48 Alcohol use disorder Liver disease Mother , At age 81 Dementia Sister Diabetes Brother Diabetes CAD (coronary artery disease) Spinal disease Other Breast cancer Heart disease Hyperlipidemia Hypertension Stroke Social History Smoking/Tobacco Use Status: Former Tobacco Use Quit Date: 09/23/95 Second Hand Exposure: No Smoking risk assessment performed?: Yes Alcohol Intake: former Drug use: Never Substance use type: does not use Adopted: No Caregiver/Support person: No Foster care: No Household members: other Details: Sister Housing: house Number of Children: 2 number of grandchildren: 2 Communication Needs: Hard of Hearing and Corrective Lenses Education Level: high school Do you need help understanding health information?: Often current occupation: retired Pets and animals: No Sexually active: No Do you think of yourself as: straight/heterosexual Current gender identity: female What is your relationship status?: How often do you talk on the phone with friends or family?: once per week How often do you get together with friends or relatives?: once per week Do you belong to any clubs or organized social groups?: no Panel score (0-1 are the most socially isolated patients): 0 What type of physical activity do you participate in: none Tuyet/Mormon: Confucianism Special tuyet needs: No Seatbelt use: always Drive intox or ride w/intox drivers license examiner: No Do you feel safe at home: Yes Do you feel safe in your relationship?: Yes
[2024-08-30 12:08] LABS: Abs Immature Grans 0.01 10^3/uL (0.0-0.06); Absolute Basophil Count 0.04 10^3/uL (0.0-0.2); Absolute Eosinophil Count 0.17 10^3/uL (0.0-0.7); Absolute Lymphocyte Count 1.55 10^3/uL (1.2-3.4); Absolute Monocyte Count 0.42 10^3/uL (0.1-0.8); Absolute Neutrophil Count 4.15 10^3/uL (1.2-6.7); Basophils % 0.6 %; Eosinophils % 2.7 %; HCT 35.6 % (36.0-46.0); HGB 12.2 g/dL (11.2-15.7); Immature Grans % 0.2 %; Lymphocytes % 24.4 %; MCH 29.5 pg (27.0-33.0); MCHC 34.3 % (32.0-36.0); MCV 86 fL (80-95); MPV 8.9 fL (8.0-11.0); Monocytes % 6.6 %; Neutrophils % 65.5 %; Platelet Count 218 10^3/uL (130-400); RBC 4.14 10^6/uL (3.93-5.22); RDW 12.8 % (11.7-14.6); WBC 6.34 10^3/uL (4.4-10.8)
[2024-08-30] MEDS: Normal Saline - Diluent 50 ML VIAL IJ (12:18)
[2024-08-30] MEDS: Omnipaque 350 MG/ML 100 ML BTL 70 ML IJ (12:20)
[2024-08-30 12:26] LABS: PTT Activated 23.5 sec (23.6-32.8); Prothrombin Time 9.9 sec (9.1-11.1)
[2024-08-30] MEDS: Normal Saline Flush 10 ML SYR IVP ×2 (12:27→20:36)
[2024-08-30 12:30] LABS: ALT 21 U/L (14-59); AST 19 U/L (15-37); Alkaline Phosphatase 82 U/L (46-116); Anion Gap 7.5 mmol/L (3-11); BUN 24 mg/dL (7-18); Bilirubin, Total 0.86 mg/dL (0.2-1.0); CO2 28.5 mmol/L (21.0-32.0); CREATININE 1.4 mg/dL (0.55-1.02); Calcium 9.5 mg/dL (8.5-10.1); Chloride 106 mmol/L (98-107); Estimated GFR 36.64 (mL/min/1.73m2); Glucose 119 mg/dL (74-106); Magnesium 2.1 mg/dL (1.8-2.4); Sodium 142 mmol/L (136-145); Total Protein 7.4 g/dL (6.4-8.2); Troponin I 15 ng/L (<or=51)
--- NOTE | 2024-08-30 12:58 | DI.VRAD_ITS ---
PROCEDURE INFORMATION: Exam: CTA Head Without And With Contrast, Arteriography Exam date and time: 08/30/2024 12:22 PM Age: 88 years old Clinical indication: Stroke-like symptoms; Lt upper extremity and lt lower extremity weakness TECHNIQUE: Imaging protocol: Computed tomographic angiography of the head without and with contrast. Exam focused on the arteries. 3D rendering (Not supervised by radiologist): MIP and/or 3D reconstructed images were created by the technologist. Contrast material: OMNIPAQUE 350; Contrast volume: 70 ml; Contrast route: INTRAVENOUS (IV); Other technique: STROKE PROTOCOL was implemented. COMPARISON: No relevant prior studies available. FINDINGS: ANTERIOR CIRCULATION: Right internal carotid artery: Calcified atheroma of the right cavernous ICA but no significant stenosis. Right middle cerebral artery: No occlusion or significant stenosis. No aneurysm. Right anterior cerebral artery: No occlusion or significant stenosis. No aneurysm. Left internal carotid artery: Calcified atheroma of the left cavernous ICA but no significant stenosis. Left middle cerebral artery: No occlusion or significant stenosis. No aneurysm. Left anterior cerebral artery: No occlusion or significant stenosis. No aneurysm. POSTERIOR CIRCULATION: Right vertebral artery: No occlusion or significant stenosis. No aneurysm. Left vertebral artery: No occlusion or significant stenosis. No aneurysm. Basilar artery: No occlusion or significant stenosis. No aneurysm. Right posterior cerebral artery: No occlusion or significant stenosis. No aneurysm. Left posterior cerebral artery: No occlusion or significant stenosis. No aneurysm. HEAD: Brain: Normal. No hemorrhage. Unremarkable white matter. No mass effect. Cerebral ventricles: Normal. No ventriculomegaly. Bones: Benign hyperostosis frontalis is present. Orbital cavities: Post bilateral cataract surgery. Paranasal sinuses: Visualized sinuses are normal. No fluid levels. Mastoid air cells: Visualized mastoids are normal. No mastoid effusion. Soft tissues: Unremarkable. IMPRESSION: 1. No large territorial infarct or intracranial bleed. 2. No large vessel occlusion. ASSESSMENT: ASPECTS ([place] Stroke Program Early CT Score) is 10. PROCEDURE INFORMATION: Exam: CTA Neck Without And With Contrast Exam date and time: 08/30/2024 12:22 PM Age: 88 years old Clinical indication: Stroke-like symptoms; Lt upper extremity and lt lower extremity weakness TECHNIQUE: Imaging protocol: Computed tomographic angiography of the neck without and with contrast. Exam focused on the cervical segments of the vasculature. 3D rendering (Not supervised by radiologist): MIP and/or 3D reconstructed images were created by the technologist. Contrast material: OMNIPAQUE 350; Contrast volume: 70 ml; Contrast route: INTRAVENOUS (IV); COMPARISON: No relevant prior studies available. FINDINGS: Right common carotid artery: No stenosis. No dissection or occlusion. Right internal carotid artery: No stenosis of the extracranial segment. No dissection or occlusion. Right external carotid artery: No occlusion or stenosis of the origin. Left common carotid artery: No stenosis. No dissection or occlusion. Left internal carotid artery: No stenosis of the extracranial segment. No dissection or occlusion. Left external carotid artery: No occlusion or stenosis of the origin. Right vertebral artery: No stenosis. No dissection or occlusion. Left vertebral artery: No stenosis. No dissection or occlusion. Soft tissues: Normal. No significant soft tissue swelling. Bones/joints: Mild degenerative disease of the cervical spine with multilevel osteophytes, most pronounced at C5-C6 with mild bony canal stenosis. Mild anterolisthesis of C4 over C5, C6 over C7 and C7 over T1. IMPRESSION: No significant arterial stenosis. REFERENCES: NASCET CRITERIA. The degree of stenosis in the cervical segment of the internal carotid artery is based on NASCET criteria. Normal is no stenosis. Mild is less than 50% stenosis. Moderate is 50-69% stenosis. Severe is 70% to 99% stenosis. Total occlusion is no detectable patent lumen. Dictated and Authenticated by: Roel Narvaez MD. Ordering:ABHAY Mcdonald MD
[2024-08-30 12:59] LABS: Bilirubin Negative (Negative); Blood Negative (Negative); Clarity Clear (Clear); Glucose Negative (Negative); Ketones Negative (Negative); Leukocyte Esterase Negative (Negative); Nitrite Negative (Negative); Urobilinogen 0.2 mg/dL (Up to 0.2); pH 6.5 (5-8)
[2024-08-30 13:47] LABS: Troponin I 10 ng/L (<or=51)
--- NOTE | 2024-08-30 15:19 | HPE_ITS ---
Date of service: 08/30/24 Time of Service: 15:19 Assessment and Plan Assessment and plan (1) CVA (cerebral vascular accident): Status: Chronic Assessment and plan: with left sided deficit. admit to med/surg on telemetry MRI tomorrow when available. echocardiogram PT/OT given asa and plavix load in the ED, continue with asa 81 mg daily and plavix 75 mg, high dose statin, will add lipid profile in am A1C pending but blood sugar 110's on arrival. (2) Idiopathic osteoarthritis: Status: Acute Assessment and plan: continue tylenol arthritis (3) Essential hypertension: Status: Acute Assessment and plan: allow for permissive hypertension, 140-180's hold lisinopril for now and monitor (4) Major depression: Status: Chronic Assessment and plan: continue home meds (5) Overactive bladder: Status: Acute Assessment and plan: continue home meds. History of Present Illness Narrative: patient presents to the ED with c/o left sided weakness, going on for one day. work up included CTA brain and neck with no acute findings. given asa load, plavix load 300 mg and high dose statin. teleneuro consultation and admission to med/surg to complete stroke work up. hemodynamically stable. no lab abnormalities or evidence of infection. blood glucose 110's Review of Systems All systems reviewed & are unremarkable except as noted in HPI and below PFSH All Active Problems (Updated 08/30/24 @ 15:29 by Harry Emmanuel MD) Acute CVA (cerebrovascular accident) (Acute) CVA (cerebral vascular accident) (Chronic) Family history of dementia (Acute) Memory changes (Acute) Anxiety (Chronic 06/03/07) Left bundle branch block (Acute 10/27/19) Presence of hip joint prosthesis (Acute 05/10/21) Edema (Acute 10/29/19) 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 (Acute 03/04/15) Disorder of nail (Acute 10/24/20) Follicular cyst of skin and subcutaneous tissue (Acute 05/09/22) Gastritis (Acute 04/24/21) Sinusitis (Acute 01/23/16) Essential hypertension (Acute 03/03/20) Hearing loss (Acute 02/09/19) Epiphora (Acute 05/13/23) Adjustment disorder (Chronic 04/19/20) Major depression (Chronic 04/04/05) Mucoid cyst of joint (Acute) right hand third digit Sensorineural hearing loss of combined sites, bilateral (Acute 06/08/16) Tinnitus (Acute 06/27/15) Foreign body in right ear (Acute) Cerumen impaction (Acute) Abnormal auditory perception (Acute) Scleral hemorrhage of right eye (Acute) Overactive bladder (Acute 12/08/23) Nuclear sclerotic cataract of right eye (Acute 03/11/17) Medical History Nondependent alcohol abuse, 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) Peripheral edema Right shoulder pain (10/27/19) Hyperlipidemia (10/10/05) Urinary urgency Vitamin D deficiency (03/03/20) Vertigo Surgical History 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) History of esophagogastroduodenoscopy (EGD) History of colonoscopy History of cataract surgery Family History Father , At age 48 Alcohol use disorder Liver disease Mother , At age 81 Dementia Sister Diabetes Brother Diabetes CAD (coronary artery disease) Spinal disease Other Breast cancer Heart disease Hyperlipidemia Hypertension Stroke Social History Smoking/Tobacco Use Status: Former Tobacco Use Quit Date: 09/23/95 Second Hand Exposure: No Smoking risk assessment performed?: Yes Alcohol Intake: former Drug use: Never Substance use type: does not use Adopted: No Caregiver/Support person: No Foster care: No Household members: other Details: Sister Housing: house Number of Children: 2 number of grandchildren: 2 Communication Needs: Hard of Hearing and Corrective Lenses Education Level: high school Do you need help understanding health information?: Often current occupation: retired Pets and animals: No Sexually active: No Do you think of yourself as: straight/heterosexual Current gender identity: female What is your relationship status?: How often do you talk on the phone with friends or family?: once per week How often do you get together with friends or relatives?: once per week Do you belong to any clubs or organized social groups?: no Panel score (0-1 are the most socially isolated patients): 0 What type of physical activity do you participate in: none Tuyet/Rastafarian: Quaker Special tuyet needs: No Seatbelt use: always Drive intox or ride w/intox non emergency services ambulance driver: No Do you feel safe at home: Yes Do you feel safe in your relationship?: Yes Meds Allergies and Home Medications Allergies Allergy/AdvReac Type Severity Reaction Status Date / Time codeine AdvReac Intermediate Nausea Verified 08/30/24 11:40 oxybutynin AdvReac Mild dry mouth Verified 08/30/24 11:40 Home Medications ?Medication ?Instructions ?Recorded ?Confirmed ?Type acetaminophen 650 mg 1,300 mg PO Q12H 07/11/22 08/30/24 History tablet,extended release (Tylenol Arthritis Pain) cholecalciferol (vitamin D3) 25 25 mcg PO DAILY 07/11/22 08/30/24 History mcg (1,000 unit) capsule mirabegron 50 mg tablet,extended 50 mg PO DAILY #90 tabs 01/22/24 08/30/24 Rx release 24 hr (Myrbetriq) lisinopril 5 mg tablet 5 mg PO DAILY #90 tabs 07/01/24 08/30/24 Rx simvastatin 10 mg tablet 10 mg PO .Every other night #45 07/01/24 08/30/24 Rx tab-caps biotin 1 mg capsule 1 mg PO DAILY 07/29/24 08/30/24 History buspirone 10 mg tablet 10 mg PO TID #90 tabs 08/04/24 08/30/24 Rx prevagen 1 ea PO DIRECTED 08/06/24 08/30/24 History Exam Const General: no acute distress Orientation: alert [facility] Head: normal to inspection Ears: external ears normal General nose exam: external nose normal Mouth: moist mucous membranes Eyes General: appearance normal, both eyes and all related structures Neck Neck: normal visual inspection Resp Effort & Inspection: normal respiratory effort and able to speak in complete sentences Cardio Rate: regular rate Skin General skin exam: no rashes or lesions noted Neuro General: patient alert and patient oriented x3 Cranial Nerves: PERRL Extrem General: normal to inspection Psych Mental Status: mental status grossly normal Results Labs 08/30/24 12:00 08/30/24 12:00 Labs: Laboratory Results - last 24 hr 08/30/24 08/30/24 08/30/24 12:00 12:55 13:14 WBC 6.34 RBC 4.14 Hgb 12.2 Hct 35.6 L MCV 86 MCH 29.5 MCHC 34.3 RDW 12.8 Plt Count 218 MPV 8.9 Immature Gran % 0.2 Neutrophils % 65.5 Lymphocytes % 24.4 Monocytes % 6.6 Eosinophils % 2.7 Basophils % 0.6 Nucleated RBC % 0.0 Absolute Neutrophils 4.15 Absolute Lymphocytes 1.55 Absolute Monocytes 0.42 Absolute Eosinophils 0.17 Absolute Basophils 0.04 PT 9.9 INR 1.0 APTT 23.5 L Sodium 142 Potassium 4.0 Chloride 106 Carbon Dioxide 28.5 Anion Gap 7.5 BUN 24 H Creatinine 1.4 H Est GFR (CKD-EPI 2020) 36.64 Glucose 119 H Calcium 9.5 Magnesium 2.1 Total Bilirubin 0.86 AST 19 ALT 21 Alkaline Phosphatase 82 Troponin I 15 10 Total Protein 7.4 Albumin 4.0 Urine Color Yellow Urine Clarity Clear Urine pH 6.5 Ur Specific [place] 1.010 Urine Protein Negative Urine Ketones Negative Urine Blood Negative Urine Nitrite Negative Urine Bilirubin Negative Urine Urobilinogen 0.2 Ur Leukocyte Esterase Negative Urine Glucose Negative Last Vital Signs Temp 36.6 C 08/30/24 11:28 Pulse 70 08/30/24 12:16 Resp 13 08/30/24 12:16 BP 163/47 H 08/30/24 12:16 Pulse Ox 98 08/30/24 12:16 Time Spent Time spent with Patient: 40-54 minutes Time was spent: preparing to see the patient(eg.review tests), obtaining and/or reviewing separately otained hiistory, ordering medications,tests, procedures, indepentently interpreting results and counseling the patient
[2024-08-30] MEDS: Aspirin 325 MG TAB PO (15:26)
[2024-08-30] MEDS: Atorvastatin 40 MG TAB 80 MG PO (15:26)
[2024-08-30] MEDS: Clopidogrel 300 MG TAB PO (15:26)
--- NOTE | 2024-08-30 16:11 | W.PC.ACHO ---
Registration Status: Primary Language: Preferred Language: ED Information & Data Chief Complaint CVA/TIA 08/30/24 11:53 Triage Note pt has been having trouble 08/30/24 11:28 walking and moving her left arm. thinks maybe she had a small stroke yesterday or the day before. daughter noticed pt having trouble getting up out of bed after taking a nap yesterday afternoon. up several times during the night to use the bathroom. hx high anxiety. anxious all week about a family gathering today. BP in range for patient yesterday afternoon. denies BS problems. left foot is turned in. denies any falls. 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) History of esophagogastroduodenoscopy (EGD) History of colonoscopy History of cataract surgery Most Recent Vital Signs Temperature 36.6 C 08/30/24 11:28 Temperature Source Oral 08/30/24 11:28 Pulse 67 08/30/24 15:16 Pulse 70 08/30/24 15:20 Respiratory Rate 17 08/30/24 15:20 Respiratory Effort Normal 08/30/24 12:02 Respiratory Depth Normal 08/30/24 12:02 Blood Pressure 140/38 L 08/30/24 15:16 Blood Pressure Mean 69 08/30/24 15:16 Pulse Oximetry 97 08/30/24 15:20 Oxygen Delivery Method Room Air 08/30/24 11:28 Oxygen Flow Rate 0 08/30/24 11:28 Pain Level 0 08/30/24 11:28 Allergies codeine Adverse Reaction (Intermediate, Verified 08/30/24 11:40) Nausea oxybutynin Adverse Reaction (Mild, Verified 08/30/24 11:40) dry mouth Precautions Isolation Standard precaution 08/30/24 11:44 Active Medications Generic Name Dose Route Start Last Admin Trade Name Freq PRN Reason Stop Dose Admin Iohexol 70 ml 08/30/24 12:30 08/30/24 12:20 Omnipaque 350 Mg/Ml 100 Ml Btl IJ 09/29/24 23:59 70 ml DIRECTED LA Administration Sodium Chloride 0 ml 08/30/24 11:41 08/30/24 12:27 Normal Saline Flush 10 Ml Syr IVP 10 ml PRN PRN Administration Sodium Chloride 50 ml 08/30/24 12:30 08/30/24 12:18 Normal Saline - Diluent 50 Ml Vial IJ 50 ml .FOR DI USE LA Administration IV IV Catheter Type [Left Saline Lock Antecubital] IV Catheter Gauge [Left 18 Antecubital] Diagnostics 08/30/24 08/30/24 08/30/24 Range/Units 13:14 12:55 12:00 WBC 6.34 (4.4-10.8) 10^3/uL RBC 4.14 (3.93-5.22) 10^6/uL Hgb 12.2 (11.2-15.7) g/dL Hct 35.6 L (36.0-46.0) % MCV 86 (80-95) fL MCH 29.5 (27.0-33.0) pg MCHC 34.3 (32.0-36.0) % RDW 12.8 (11.7-14.6) % Plt Count 218 (130-400) 10^3/uL MPV 8.9 (8.0-11.0) fL Immature Gran % 0.2 % Neutrophils % 65.5 % Lymphocytes % 24.4 % Monocytes % 6.6 % Eosinophils % 2.7 % Basophils % 0.6 % Nucleated RBC % 0.0 (0.0-0.3) % Absolute Neutrophils 4.15 (1.2-6.7) 10^3/uL Absolute Lymphocytes 1.55 (1.2-3.4) 10^3/uL Absolute Monocytes 0.42 (0.1-0.8) 10^3/uL Absolute Eosinophils 0.17 (0.0-0.7) 10^3/uL Absolute Basophils 0.04 (0.0-0.2) 10^3/uL PT 9.9 (9.1-11.1) sec INR 1.0 (0.9-1.1) APTT 23.5 L (23.6-32.8) sec Sodium 142 (136-145) mmol/L Potassium 4.0 (3.5-5.1) mmol/L Chloride 106 (98-107) mmol/L Carbon Dioxide 28.5 (21.0-32.0) mmol/L Anion Gap 7.5 (3-11) mmol/L BUN 24 H (7-18) mg/dL Creatinine 1.4 H (0.55-1.02) mg/dL Est GFR (CKD-EPI 2020) 36.64 (mL/min/1.73m2) Glucose 119 H (74-106) mg/dL Calcium 9.5 (8.5-10.1) mg/dL Magnesium 2.1 (1.8-2.4) mg/dL Total Bilirubin 0.86 (0.2-1.0) mg/dL AST 19 (15-37) U/L ALT 21 (14-59) U/L Alkaline Phosphatase 82 (46-116) U/L Troponin I 10 15 (<or=51) ng/L Total Protein 7.4 (6.4-8.2) g/dL Albumin 4.0 (3.4-5.0) g/dL Urine Color Yellow (Yellow) Urine Clarity Clear (Clear) Urine pH 6.5 (5-8) Ur Specific [place] 1.010 (1.005-1.025) Urine Protein Negative (Neg-Trace) mg/dL Urine Ketones Negative (Negative) mg/dL Urine Blood Negative (Negative) Urine Nitrite Negative (Negative) Urine Bilirubin Negative (Negative) Urine Urobilinogen 0.2 (Up to 0.2) mg/dL Ur Leukocyte Esterase Negative (Negative) Urine Glucose Negative (Negative) mg/dL Intake and Output - 24 Hour Total 08/30/24 11:27 thru 08/30/24 11:28 Weight 73.5 kg Falls Risk Assessment History of Falls No History 08/30/24 12:06 Contributing Factors No Factors 08/30/24 12:06 Ambulatory Aids Uses ambulatory device + 08/30/24 12:06 Tubes/Lines None 08/30/24 12:06 Gait Evaluation No gait disturbance 08/30/24 12:06 Cognition No cognitive impairment 08/30/24 12:06 Fall Total Score 30 08/30/24 12:06 Level of Risk Moderate Risk 08/30/24 12:06 Problems (Last Reviewed 11/14/24 @ 10:59 by Sakina Kang) CVA (cerebral vascular accident) (Chronic) Idiopathic osteoarthritis (Acute 06/27/15) Essential hypertension (Acute 03/03/20) Major depression (Chronic 04/04/05) Overactive bladder (Acute 12/08/23) v v v v v v v v v Sending and/or Receiving Nurses: Please use comment section below to note any information pertinent to the patient hand-off not included above. Information / Comments: Report received at 1605. Pt admitted to ED for suspected CVA, hx of anxiety and hypertension. Last known normal was around 1300 yesterday. L AC, US guided. Received atorvastatin, aspirin, and plavix in ED. Report received from: Jinny Arellano ED RN
[2024-08-30] MEDS: busPIRone 5 MG TAB 10 MG PO (20:35)
--- NOTE | 2024-08-31 | DI.MRI_ITS ---
Exam(s) MR BRAIN WO EXAM: MR BRAIN WO CLINICAL HISTORY: cva TECHNIQUE: Multiplanar multisequence MRI of the brain was performed. COMPARISON: CT CT BRAIN NECK CTA from 08/30/2024 FINDINGS: CEREBRAL PARENCHYMA: There is an abnormal area of restricted diffusion involving the right-side of the mike consistent wit h nonhemorrhagic acute infarct. There is no significant signal abnormality in the cerebellar hemispheres nor within the midbrain and thalami. There is scattered small foci of FLAIR bright signal abnormality in the periventricular whi te matter consistent with chronic small vessel changes. PITUITARY GLAND: No mass nor parasellar abnormality. No obvious abnormality in the cavernous sinuses. FLOW VOIDS: The expected flow void are noted. No evidence of obvious aneurysm nor obvious vascular ma lformation. PARANASAL SINUSES: The visualized paranasal sinuses appear unremarkable. No obvious finding ORBITS: Previous bilateral cataract surgery. No acute orbital findings. IMPRESSION: There is a prominent acute nonhemorrhagic infarct involving the right side of the mike. DATA REPOSITORY:
[2024-08-31 03:30] VITALS: BP 129/51; PULSE 77; RESP 17; TEMP 36.9; O2SAT 95
[2024-08-31 06:10] LABS: Abs Immature Grans 0.02 10^3/uL (0.0-0.06); Absolute Basophil Count 0.03 10^3/uL (0.0-0.2); Absolute Eosinophil Count 0.21 10^3/uL (0.0-0.7); Absolute Lymphocyte Count 1.57 10^3/uL (1.2-3.4); Absolute Monocyte Count 0.42 10^3/uL (0.1-0.8); Absolute Neutrophil Count 2.92 10^3/uL (1.2-6.7); Basophils % 0.6 %; Eosinophils % 4.1 %; HCT 33.6 % (36.0-46.0); HGB 11.6 g/dL (11.2-15.7); Immature Grans % 0.4 %; Lymphocytes % 30.4 %; MCH 29.7 pg (27.0-33.0); MCHC 34.5 % (32.0-36.0); MCV 86 fL (80-95); MPV 8.9 fL (8.0-11.0); Monocytes % 8.1 %; Neutrophils % 56.4 %; Platelet Count 184 10^3/uL (130-400); RBC 3.91 10^6/uL (3.93-5.22); RDW-SD 40.4 fL; WBC 5.17 10^3/uL (4.4-10.8)
[2024-08-31 06:26] LABS: Anion Gap 9.1 mmol/L (3-11); BUN 25 mg/dL (7-18); CO2 25.9 mmol/L (21.0-32.0); CREATININE 1.2 mg/dL (0.55-1.02); Calcium 9.3 mg/dL (8.5-10.1); Calculated LDL 76 mg/dL (<100); Chloride 109 mmol/L (98-107); Cholesterol 160 mg/dL (<200); Estimated GFR 44.08 (mL/min/1.73m2); Glucose 112 mg/dL (74-106); HDL Cholesterol 69 mg/dL (40-60); Potassium 4.2 mmol/L (3.5-5.1); Sodium 144 mmol/L (136-145); Triglyceride 76 mg/dL (<150)
[2024-08-31 07:27] VITALS: BP 129/54; PULSE 72; RESP 18; TEMP 36.8; O2SAT 97
--- NOTE | 2024-08-31 08:57 | PT.INIE ---
PT Notes Visit Reasons: Cerebrovascular accident Physical Therapy Inpatient Initial Evaluation Date: Referring Doctor: Lynne Alejo NP PT Orders: PT CONSULT: Eval/Treat Precautions: Fall. Standard. Activity as tolerated. Patient Profile/Admitting Diagnosis: Avis is an 88-year-old female who presented to the ED on 08/30/2024 with complaints of left-sided weakness since Saturday, difficulty walking, and slight left facial drooping. Patient is admitted for CVA workup and management, atraumatic osteoarthritis, essential hypertension, major depression, and overactive bladder. PMHX: All Active Problems (Updated 08/30/24 @ 15:29 by Harry Emmanuel MD) Acute CVA (cerebrovascular accident) (Acute) CVA (cerebral vascular accident) (Chronic) Family history of dementia (Acute) Memory changes (Acute) Anxiety (Chronic 06/03/07) Left bundle branch block (Acute 10/27/19) Presence of hip joint prosthesis (Acute 05/10/21) Edema (Acute 10/29/19) 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 (Acute 03/04/15) Disorder of nail (Acute 10/24/20) Follicular cyst of skin and subcutaneous tissue (Acute 05/09/22) Gastritis (Acute 04/24/21) Sinusitis (Acute 01/23/16) Essential hypertension (Acute 03/03/20) Hearing loss (Acute 02/09/19) Epiphora (Acute 05/13/23) Adjustment disorder (Chronic 04/19/20) Major depression (Chronic 04/04/05) Mucoid cyst of joint (Acute) right hand third digit Sensorineural hearing loss of combined sites, bilateral (Acute 06/08/16) Tinnitus (Acute 06/27/15) Foreign body in right ear (Acute) Cerumen impaction (Acute) Abnormal auditory perception (Acute) Scleral hemorrhage of right eye (Acute) Overactive bladder (Acute 12/08/23) Nuclear sclerotic cataract of right eye (Acute 03/11/17) Medical History Nondependent alcohol abuse, 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 Equipment Owned/DME: FWW Subjective: Agreeable to a short evaluation before breakfast. Denies headache, chest pain, and lightheadedness throughout session. Stated that she fell Saturday night. She was int he kitchen when she felt her L upper and lower extremity go limp which made her walk differently. No fall since 6occurrence of symptoms until presentation to the ED. Objective: General Observation: Patient brought back in from echo and MRI testing. Has not had breakfast yet. Mental Status: Alert and oriented as to person, place, time, and purpose. Able to pay attention, focus, and respond appropriately. Pain: None reported Vital Signs: Closely monitored by nursing staff ROM: Right Upper Extremity: Shoulder Flexion WFL. Shoulder abduction WFL. Elbow flexion WFL. Wrist flexion WFL. Functional opening and closing of hand WFL. Left Upper Extremity: Shoulder Flexion lacks the last 25% of AROM. Shoulder abduction lacks the last 25% of AROM. Elbow flexion WFL. Wrist flexion WFL. Functional opening and closing of hand WFL. Right Lower Extremity: Hip flexion WFL. Hip abduction WFL. Knee flexion WFL. Ankle dorsiflexion WFL. Ankle plantarflexion WFL. Left Lower Extremity: Hip flexion lacks the last 25% of AROM. Hip abduction lacks the last 25% of AROM. Knee flexion 20 degrees to 90 degrees. knee extension -20 degrees. Ankle dorsiflexion to neutral only. Ankle plantarflexion WFL. Strength: Right Upper Extremity: Shoulder flexors 4/5. Shoulder abductors 4/5. Elbow flexors 4/5. Elbow extensors 4/5. General Accountant strong. Left Upper Extremity: Shoulder flexors 3-/5. Shoulder abductors 3-/5. Elbow flexors 4-/5. Elbow extensors 3-/5. General Accountant weak but functional. Right Lower Extremity: Hip flexors 4/5. Hip abductors 4/5. Knee flexors 4/5. Knee extensors 4-/5. Ankle dorsiflexors 4-/5. Ankle plantarflexors 4-/5. Left Lower Extremity: Hip flexors 3-/5. Hip abductors 3-/5. Knee flexors 3-/5. Knee extensors 3-/5. Ankle dorsiflexors 3-/5. Ankle plantarflexors 4-/5. Bed Mobility/Transfers: Minimal cueing provided for use of B hands as needed for support, movement sequence, AD management, and posture to reduce fall risk and minimize pain report Sit to stand with minimal assist with FWW Stand to sit with minimal assist with FWW Transport chair to reclining chair minimal assist with FWW Gait: Patient assisted from transport chair to bedside chair for about 10-12 steps total using FWW with asymmetric step height and length, decreased on the L, contact guard to minimal assist needed specially during directional change. Gait hemiparetic on L. Stairs: Not tested Balance: Static Sitting: Normal Dynamic Sitting: Normal Static Standing: Fair Dynamic Standing: Fair Special Tests: Mobility Limitations Standardized Measure [facility] 6 clicks Basic Mobility Inpatient Short Form: Raw Score: 18 CMS Score: 47% deficit Pronator drift: Positive Rhomber Test: Positive Rapid Alternating Movement: Impaired on L Tone on L UE/LE: Hypotonic 4-Stage Balance Test Feet together <10 inutes Semitandem unable Full tandem unable One-legged standing deferred Informed Consent/Education: Patient was instructed in purpose of PT consult and plan of care. Agreeable to proceed with established PT POC to achieve personal goals. ASSESSMENT: New onset neurologic symptoms of L-sided weakness, incoordination in L UE, change in walking pattern with decreased step height on L, and mild slurring of speech observed. Patient just got done with echocardiography and MRI of the brain when PT came in to help patient walk a short distance about 12 steps from transport chair to bedside recliner. Denied headache, chest pain, and lightheadedness during this short sesison. Further mobility testing was deferred as patient has not had breakfast yet. Will assess gait performance more later today when patient becomes available again. Patient presents with clinical signs and symptoms consistent with current/admitting diagnoses that have resulted to mobility limitations, gait instability, generalized weakness, and overall ADL decline as demonstrated by the following impairment level findings: 1. Decreased strength to L UE/LE major muscle groups 2. Impaired sitting/standing balance 3. Impaired activity tolerance 4. Limitation of joint range of motion in L UE/LE joints 5. Shortness of breath Impairments are contributing to the following functional limitations: 1. Decline in bed mobility skills 2. Decline in transfer skills 3. Difficulty with ambulation without assistive device and physical assistance 4. Increased completion time for mobility ADL performance 5. Increased risk for falls 6. Difficulty with managing steps alone safely Patient is assessed as a [id number] moderate complexity based on the following: History: 88-year-old female with past medical history as indicated above Examination: Demonstrable impairment in strength, balance, and mobility level with underlying impairments and functional limitations as exhibited above as well as deficit score of 47% utilizing the [facility] Mobility Inpatient Short Form Presentation: Evolving Decision Makin moderate complexity Goals: Goals X1 week 1. Supine-Sit independent 2. Sit-Supine independent 3. Sit-Stand independent 4. Stand-Sit independent with FWW 5. Bed-Chair independent with FWW 6. Chair-Bed independent with FWW 7. Independent gait on level surface with use of FWW for at least 300 feet without report of pain nor dyspnea 8. Independent stair negotiation while holding onto B rails for at least 3 steps without report of pain nor dyspnea 9. Independent with home exercise program 10. Good static and dynamic standing balance/tolerance Plan of Care/Treatment Plan: 1-2x/day, 7 days/week x 1 week. Plan of care has been reviewed with the INVESTIGATION DIVISION CAPTAIN providing the service under Physical Therapy direction. Initiate Physical Therapy intervention for pain management as needed, strengthening, bed mobility, transfers, gait, stairs, balance training, and use of assistive device. DISCHARGE RECOMMENDATIONS: [] Home with no services [] [] Home with services [specify] [] Home with outpatient PT [] [] SNF for continued rehabilitation [] [] [facility] [] [] SNF versus LTC based on ability to participate and progress [] [X] Acute stroke rehab vs. SNF TREATMENT CODE/TIME: 67290 x 21 minutes for 1 unit (8:57-9:18). Thank you for the opportunity to participate in the care of this patient. Avis Eason PT, DPT, CLT [facility] [place], [place]
--- NOTE | 2024-08-31 09:24 | W.PM.PROGNOT ---
Date of Service Date of service: 08/31/24 Time of Service: Assessment and Plan Assessment and plan (1) CVA (cerebral vascular accident): Status: Chronic Assessment and plan: with left sided deficit. admit to med/surg on telemetry MRI tomorrow when available. echocardiogram PT/OT given asa and plavix load in the ED, continue with asa 81 mg daily and plavix 75 mg, high dose statin, will add lipid profile in am A1C pending but blood sugar 110's on arrival. (2) Idiopathic osteoarthritis: Status: Acute Assessment and plan: continue tylenol arthritis (3) Essential hypertension: Status: Acute Assessment and plan: allow for permissive hypertension, 140-180's hold lisinopril for now and monitor (4) Major depression: Status: Chronic Assessment and plan: continue home meds (5) Overactive bladder: Status: Acute Assessment and plan: continue home meds. Exam Narrative Exam Narrative: Constitutional The patient is sitting in chair/ lying in bed comfortable and cooperative during the interview. The patient is well groomed without acute distress and has average body habitus/is obese/ is thin. HENMT: Head is atraumatic, normocephalic, no lymphadenopathy. Facial structures with normal appearance Eyes: Well aligned, intact ROM Neck: Normal ROM, no meningeal signs Neuro:alert and oriented to self, person, place time and situation. No neurological focal deficit, PERRLA Chest:Chest is symmetrical and normal appearance Resp: Normal respiratory pattern, speaks in full sentences, unlabored breathing, clear lung bilaterally Cardio: regular rhythm, S1, S2, no murmur, capillary refill<3 sec., bilateral radial and dorsalis pedis pulses are positive, palpable GI: Abdomen is not distended, soft and non tender, bowel sounds are present : Negative Costovertebral angle tenderness, no bladder distension Back/spine/Pelvis: No back tenderness, normal alignment Integumentary: No skin lesions or rash Extremities: strength 5/5 to bilateral lower and upper extremities Psych: RASS 0, congruent mood and normal affect. Objective Last Vital Signs Temp 36.8 C 08/31/24 07:27 Pulse 72 08/31/24 07:27 Resp 18 08/31/24 07:27 BP 129/54 L 08/31/24 07:27 Pulse Ox 97 08/31/24 07:27 Laboratory Results - last 24 hr 08/30/24 08/30/24 08/30/24 12:00 12:55 13:14 WBC 6.34 RBC 4.14 Hgb 12.2 Hct 35.6 L MCV 86 MCH 29.5 MCHC 34.3 RDW 12.8 Plt Count 218 MPV 8.9 Immature Gran % 0.2 Neutrophils % 65.5 Lymphocytes % 24.4 Monocytes % 6.6 Eosinophils % 2.7 Basophils % 0.6 Nucleated RBC % 0.0 Absolute Neutrophils 4.15 Absolute Lymphocytes 1.55 Absolute Monocytes 0.42 Absolute Eosinophils 0.17 Absolute Basophils 0.04 PT 9.9 INR 1.0 APTT 23.5 L Sodium 142 Potassium 4.0 Chloride 106 Carbon Dioxide 28.5 Anion Gap 7.5 BUN 24 H Creatinine 1.4 H Est GFR (CKD-EPI 2020) 36.64 Glucose 119 H Calcium 9.5 Magnesium 2.1 Total Bilirubin 0.86 AST 19 ALT 21 Alkaline Phosphatase 82 Troponin I 15 10 Total Protein 7.4 Albumin 4.0 Triglycerides Total Cholesterol LDL Cholesterol, Calc HDL Cholesterol Urine Color Yellow Urine Clarity Clear Urine pH 6.5 Ur Specific [place] 1.010 Urine Protein Negative Urine Ketones Negative Urine Blood Negative Urine Nitrite Negative Urine Bilirubin Negative Urine Urobilinogen 0.2 Ur Leukocyte Esterase Negative Urine Glucose Negative 08/31/24 06:05 WBC 5.17 RBC 3.91 L Hgb 11.6 Hct 33.6 L MCV 86 MCH 29.7 MCHC 34.5 RDW 13.0 Plt Count 184 MPV 8.9 Immature Gran % 0.4 Neutrophils % 56.4 Lymphocytes % 30.4 Monocytes % 8.1 Eosinophils % 4.1 Basophils % 0.6 Nucleated RBC % 0.0 Absolute Neutrophils 2.92 Absolute Lymphocytes 1.57 Absolute Monocytes 0.42 Absolute Eosinophils 0.21 Absolute Basophils 0.03 PT INR APTT Sodium 144 Potassium 4.2 Chloride 109 H Carbon Dioxide 25.9 Anion Gap 9.1 BUN 25 H Creatinine 1.2 H Est GFR (CKD-EPI 2020) 44.08 Glucose 112 H Calcium 9.3 Magnesium Total Bilirubin AST ALT Alkaline Phosphatase Troponin I Total Protein Albumin Triglycerides 76 Total Cholesterol 160 LDL Cholesterol, Calc 76 HDL Cholesterol 69 Urine Color Urine Clarity Urine pH Ur Specific [place] Urine Protein Urine Ketones Urine Blood Urine Nitrite Urine Bilirubin Urine Urobilinogen Ur Leukocyte Esterase Urine Glucose
[2024-08-31] MEDS: busPIRone 5 MG TAB 10 MG PO (09:48)
[2024-08-31] MEDS: Aspirin E.C. 81 MG TABEC PO (09:49)
[2024-08-31] MEDS: Mirabegron 50 MG TABCR PO (09:49)
[2024-08-31] MEDS: Enoxaparin 30 MG/0.3 ML SYR SC (09:49)
[2024-08-31] MEDS: Normal Saline Flush 10 ML SYR IVP (09:49)
[2024-08-31] MEDS: Cholecalciferol (Vitamin D3) 1,000 UNIT TAB 1000 UNITS PO (09:49)
[2024-08-31] MEDS: Clopidogrel 75 MG TAB PO (09:49)
[2024-08-31 11:39] VITALS: BP 124/45; PULSE 65; RESP 18; TEMP 36.8; O2SAT 97
--- NOTE | 2024-08-31 11:49 | W.PM.DS.N ---
Date of service: 08/31/24 Time of Service: 11:50 DS: Diagnosis Discharge Diagnosis (1) CVA (cerebral vascular accident): Status: Chronic (2) Idiopathic osteoarthritis: Status: Acute (3) Essential hypertension: Status: Acute (4) Major depression: Status: Chronic (5) Overactive bladder: Status: Acute Discharge Plan Disposition Patient Disposition: Home W/Home Health Services Condition: Improving Discharge Details Reason For Visit: CVA Admit Date/Time: 08/30/24 15:19 Admit Provider: Maksim Muniz Attending Provider: Maksim Muniz Primary Care Provider: Jessica Russell Hospital Course Hospital Course: This 88-year-old female patient with a past medical history of hypertension presented to the ED at [facility] on 08/30/2024 for evaluation of left-sided weakness and difficulty ambulating starting on 08/29/[address] was negative for any acute findings. CTA of brain showed mild calcification in the cavernous internal carotid arteriesand was otherwise normal.The CTA neck was normal CTA w/o visible atherosclerotic plaque. CBC and chemistyr were unremarkable ecept for a creatinine at 1.4 with baselin around 1.1- 1.2. A tele-neurology consult was completed with recommendations for plavix, aspirin and loading, high intensity statin therapy with lipitor, as well as admission on telemetry for complete stroke work-up with suspicion of a thalamic infarct with MRI, echocardiogram, lipids and hemoglobin A1C. The hopitalist team admitted the patient to the medical surgical floor for evaluation and management of CVA . The patient remained in a sinus rhythm throughout the stay. Anti-hypertensive medicines were held for permissive hypertension and the patient remained hemodynamically stable.The MRI showed a prominent right pontine infarct. Dr. Hdez from [place]neuro [place] [facility] [place] not emit new recommendations but related that an echocardiogram w/o bubbles study was also adequate. The echocardiogram measured and LVEF of 57% and the saline bubble contrast was nonconclusive. Lipid panel showed acceptable values, A1C could not be obtained d/t equipment failure. The patient will be discharge home with home health physical therapy, occupational therapy and nursing with follow-up with her PCP with in 7 days of discharge. The will need a neurology follow-up as per shared decision making with her PCP. Scripts for daily oral aspirin 81 mg, oral Plavix 75 mg daily for 21 days,and oral Lipitor 80 mg daily were sent electronically to the pharmacy. The patient can resume her antihypertensive regimen in AM. Prevagen was held. Discussed with Dr. Muniz [place] Meds and New Rx's Prescriptions: New atorvastatin [Lipitor] 40 mg tablet 80 mg PO QPM Qty: 60 0RF clopidogrel [Plavix] 75 mg tablet 75 mg PO DAILY Qty: 20 0RF aspirin 81 mg capsule 81 mg PO DAILY Qty: 30 0RF Continued biotin 1 mg capsule 1 mg PO DAILY mirabegron [Myrbetriq] 50 mg tablet extended release 24 hr 50 mg PO DAILY Qty: 90 3RF buspirone 10 mg tablet 10 mg PO TID Qty: 90 3RF cholecalciferol (vitamin D3) 25 mcg (1,000 unit) capsule 25 mcg PO DAILY acetaminophen [Tylenol Arthritis Pain] 650 mg tablet extended release 1,300 mg PO Q12H lisinopril 5 mg tablet 5 mg PO DAILY Qty: 90 3RF Held prevagen 1 ea PO DIRECTED Hold Instructions: Resume on 09/22/24. Discuss with PCP Discontinued simvastatin 10 mg tablet 10 mg PO .Every other night Qty: 45 3RF Discharge Instructions Instructions: Stroke (DC) Stand Alone Forms: Nursing Discharge Form Referrals: Jessica Russell APRN [Primary Care Provider] - 09/08/24 1:30 pm Activity:: Activity as Tolerated Equipment/Supplies:: Walker Diet:: heart healthy Discharge Orders Discharge Orders: Discharge Order (Routine); Ordered 08/31/24 Ordered By: Nazanin Ferguson DS: Summary Time Spent with Patient providing and/or coordinating discharge services: Greater than 30 minutes Status at Discharge Functional status at discharge: uses cane/walker Overall status at discharge: patient is progressing back to baseline Mental Status: mental status grossly normal Speech and Movement: speech and movement normal and other (residual left-sided weakness) Mood: congruent mood Affect: normal affect Quality:SDOH Health Related Social Needs: No Data to Display Exam Narrative Exam Narrative: Constitutional The patient is pleasant, sitting in chair without acute distress HENMT: Facial structures with normal appearance Eyes: Well aligned, intact ROM Neuro:alert and oriented X4, cranial nerve II to XII intact, left sided upper and lower ext. weakness with slight left arm drift Resp: Unlabored breathing, clear lung bilaterally Cardio:Tele SR HR 70 regular rhythm, S1, S2, no murmur,positive pulses to all 4 ext. GI: Abdomen is not distended, soft and non tender, bowel sounds are present Integumentary: No skin lesions or rash Extremities: strength 5/5 to bilateral to the right side, left arm and leg 4/5 Psych: RASS 0, congruent mood and normal affect. Psych Mental Status: mental status grossly normal Speech and Movement: speech and movement normal and other (residual left-sided weakness) Mood: congruent mood Affect: normal affect DS: Data Vitals/I&O Vitals and I&O: Vital Signs Temperature 36.8 C 08/31/24 11:39 Temperature Source Temporal Artery Scan 08/31/24 11:39 Pulse 65 08/31/24 11:39 Pulse Rhythm Regular 08/30/24 16:47 Pulse 70 08/30/24 15:20 Respiratory Rate 18 08/31/24 11:39 Respiratory Effort Normal, Non-Labored 08/30/24 16:47 Respiratory Depth Normal 08/30/24 16:47 Respiratory Pattern Normal 08/30/24 16:47 Blood Pressure 124/45 L 08/31/24 11:39 Blood Pressure Mean 69 08/30/24 15:16 Pulse Oximetry 97 08/31/24 11:39 Oxygen Delivery Method Room Air 08/31/24 11:39 Oxygen Flow Rate 0 08/31/24 11:39 Pain Level 0 08/31/24 03:30 Comment RN NOTIFED. 08/31/24 11:39 Intake & Output 08/30/24 08/30/24 08/31/24 11:59 23:59 11:59 Intake Total 300 / 300 Output Total 350 / 350 300 / 300 Balance -350 / -350 0 / 0 Weight 73.5 kg 69.626 kg Intake: Oral 300 / 300 Output: Urine 350 / 350 300 / 300 Other: Urine Color Yellow Straw Urine Appearance Clear Clear Urine Odor None Strong Data Completed and Pending Labs on day of discharge: Labs from last 24 hours 08/31/24 08/30/24 08/30/24 06:05 13:14 12:55 WBC 5.17 RBC 3.91 L Hgb 11.6 Hct 33.6 L MCV 86 MCH 29.7 MCHC 34.5 RDW 13.0 Plt Count 184 MPV 8.9 Immature Gran % 0.4 Neutrophils % 56.4 Lymphocytes % 30.4 Monocytes % 8.1 Eosinophils % 4.1 Basophils % 0.6 Nucleated RBC % 0.0 Absolute Neutrophils 2.92 Absolute Lymphocytes 1.57 Absolute Monocytes 0.42 Absolute Eosinophils 0.21 Absolute Basophils 0.03 PT INR APTT Sodium 144 Potassium 4.2 Chloride 109 H Carbon Dioxide 25.9 Anion Gap 9.1 BUN 25 H Creatinine 1.2 H Est GFR (CKD-EPI 2020) 44.08 Glucose 112 H Hemoglobin A1c Calcium 9.3 Magnesium Total Bilirubin AST ALT Alkaline Phosphatase Troponin I 10 Total Protein Albumin Triglycerides 76 Total Cholesterol 160 LDL Cholesterol, Calc 76 HDL Cholesterol 69 Urine Color Yellow Urine Clarity Clear Urine pH 6.5 Ur Specific Bynum 1.010 Urine Protein Negative Urine Ketones Negative Urine Blood Negative Urine Nitrite Negative Urine Bilirubin Negative Urine Urobilinogen 0.2 Ur Leukocyte Esterase Negative Urine Glucose Negative 08/30/24 08/30/24 12:00 09:21 WBC 6.34 RBC 4.14 Hgb 12.2 Hct 35.6 L MCV 86 MCH 29.5 MCHC 34.3 RDW 12.8 Plt Count 218 MPV 8.9 Immature Gran % 0.2 Neutrophils % 65.5 Lymphocytes % 24.4 Monocytes % 6.6 Eosinophils % 2.7 Basophils % 0.6 Nucleated RBC % 0.0 Absolute Neutrophils 4.15 Absolute Lymphocytes 1.55 Absolute Monocytes 0.42 Absolute Eosinophils 0.17 Absolute Basophils 0.04 PT 9.9 INR 1.0 APTT 23.5 L Sodium 142 Potassium 4.0 Chloride 106 Carbon Dioxide 28.5 Anion Gap 7.5 BUN 24 H Creatinine 1.4 H Est GFR (CKD-EPI 2020) 36.64 Glucose 119 H Hemoglobin A1c Pending Calcium 9.5 Magnesium 2.1 Total Bilirubin 0.86 AST 19 ALT 21 Alkaline Phosphatase 82 Troponin I 15 Total Protein 7.4 Albumin 4.0 Triglycerides Total Cholesterol LDL Cholesterol, Calc HDL Cholesterol Urine Color Urine Clarity Urine pH Ur Specific Bynum Urine Protein Urine Ketones Urine Blood Urine Nitrite Urine Bilirubin Urine Urobilinogen Ur Leukocyte Esterase Urine Glucose [facility] All Active Problems (Updated 08/30/24 @ 15:29 by Harry Emmanuel MD) Acute CVA (cerebrovascular accident) (Acute) CVA (cerebral vascular accident) (Chronic) Family history of dementia (Acute) Memory changes (Acute) Anxiety (Chronic 06/03/07) Left bundle branch block (Acute 10/27/19) Presence of hip joint prosthesis (Acute 05/10/21) Edema (Acute 10/29/19) 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 (Acute 03/04/15) Disorder of nail (Acute 10/24/20) Follicular cyst of skin and subcutaneous tissue (Acute 05/09/22) Gastritis (Acute 04/24/21) Sinusitis (Acute 01/23/16) Essential hypertension (Acute 03/03/20) Hearing loss (Acute 02/09/19) Epiphora (Acute 05/13/23) Adjustment disorder (Chronic 04/19/20) Major depression (Chronic 04/04/05) Mucoid cyst of joint (Acute) right hand third digit Sensorineural hearing loss of combined sites, bilateral (Acute 06/08/16) Tinnitus (Acute 06/27/15) Foreign body in right ear (Acute) Cerumen impaction (Acute) Abnormal auditory perception (Acute) Scleral hemorrhage of right eye (Acute) Overactive bladder (Acute 12/08/23) Nuclear sclerotic cataract of right eye (Acute 03/11/17) Medical History Nondependent alcohol abuse, 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) Peripheral edema Right shoulder pain (10/27/19) Hyperlipidemia (10/10/05) Urinary urgency Vitamin D deficiency (03/03/20) Vertigo Surgical History 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) History of esophagogastroduodenoscopy (EGD) History of colonoscopy History of cataract surgery Family History Father , At age 48 Alcohol use disorder Liver disease Mother , At age 81 Dementia Sister Diabetes Brother Diabetes CAD (coronary artery disease) Spinal disease Other Breast cancer Heart disease Hyperlipidemia Hypertension Stroke Social History Smoking/Tobacco Use Status: Former Tobacco Use Quit Date: 09/23/95 Second Hand Exposure: No Smoking risk assessment performed?: Yes Alcohol Intake: former Drug use: Never Substance use type: does not use Adopted: No Caregiver/Support person: No Foster care: No Household members: other Details: Sister Housing: house Number of Children: 2 number of grandchildren: 2 Communication Needs: Hard of Hearing and Corrective Lenses Education Level: high school Do you need help understanding health information?: Often current occupation: retired Pets and animals: No Sexually active: No Do you think of yourself as: straight/heterosexual Current gender identity: female What is your relationship status?: How often do you talk on the phone with friends or family?: once per week How often do you get together with friends or relatives?: once per week Do you belong to any clubs or organized social groups?: no Panel score (0-1 are the most socially isolated patients): 0 What type of physical activity do you participate in: none Tuyet/Yarsanism: Orthodox Special tuyet needs: No Seatbelt use: always Drive intox or ride 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
--- NOTE | 2024-08-31 12:39 | PDOC.CMIN ---
Date of service: 08/31/24 Time of Service: 12:39 Care Management Initial Assmt Initial Assessment Reason for Hospitalization: CVA Functional Status/Living Situation Patient Presentation: Padmini was admitted through the ED yesterday with c/o left sided weakness for the course of a day. Padmini was sitting up in the bed when CM met with her this afternoon. She was pleasant, oriented, and easy to converse with. Padmini stated that she was decorating for [place] on Saturday, when her left arm became slow and heavy, also her left leg was heavy. She put herself to bed. When she woke the next day, her symptoms had not improved and her daughter brought her to the ER. Padmini lives with her sister, who is only 72yo much younger than me. Her daughter lives in [place], and spends a couple of nights a week at the house. Her granddaughter is also a good support. Padmini has been mainly independent and healthy until this event. Town of Residence: [place] Resides with: Other (sister, Nazanin, lives in Padmini's house with her.) Significant Other/Family: Out of area (daughter Viviane lives in [place]) Natural Supports: family Employment Status: Retired Instrumental Activities of Daily Living (ADLs): Independent (requires support for large chores ) Medications Medication Management: No Issues/Barriers identified Physical Functioning/Mobility Assistive Device: FWW Advance Directives Advance Directives: Do you have an Advance Directive: Y 02/06/16 06:07 AD On File at [facility]: Y 01/27/16 13:25 Date Asked 08/30/24 08/30/24 15:44 AD Date Reviewed 08/30/24 08/30/24 11:37 COLST On File at [facility] No 08/30/24 11:37 COLST Date Scanned Code Status Resuscitation Status Full Code Portal Pt does not currently have a portal and education provided: Yes Insurance Coverage/Financial Issues Insurance: medicare/A[employer] supplemental Care Team Visit Care Team Role Provider Type Jessica Russell APRN Primary Care Provider NURSE PRACTITIONER Lauren Carlson Other Providers REG OCCUPATIONAL THERAPIST InPatient Sudeep Curiel Other Providers OTHER Harry Emmanuel MD Emergency Provider [facility] STAFF PHYSICIAN Maksim Muniz MD Admit Provider [facility] STAFF PHYSICIAN Attending Provider Other: Adrianna Guerrero therapist Discharge Potential Discharge Needs: PCP F/U Appt Anticipated Barriers to Discharge: None Identified Patient/Family Education Needs: Review discharge instructions, discuss Ask Me Three Transportation: Private vehicle (with daughter, Viviane) Plan: Padmini will be discharged this afternoon with new orders for Home Health PT and RN. Her daughter, Viviane, was notified via of the plan. Padmini will f/u with her PCP and continue per her plan of care. She will be discharged with new orders for atorvastatin and aspirin 81mg daily. Padmini will transport home in a private vehicle with her daughter. PFSH All Active Problems (Updated 08/30/24 @ 15:29 by Harry Emmanuel MD) Acute CVA (cerebrovascular accident) (Acute) CVA (cerebral vascular accident) (Chronic) Family history of dementia (Acute) Memory changes (Acute) Anxiety (Chronic 06/03/07) Left bundle branch block (Acute 10/27/19) Presence of hip joint prosthesis (Acute 05/10/21) Edema (Acute 10/29/19) 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 (Acute 03/04/15) Disorder of nail (Acute 10/24/20) Follicular cyst of skin and subcutaneous tissue (Acute 05/09/22) Gastritis (Acute 04/24/21) Sinusitis (Acute 01/23/16) Essential hypertension (Acute 03/03/20) Hearing loss (Acute 02/09/19) Epiphora (Acute 05/13/23) Adjustment disorder (Chronic 04/19/20) Major depression (Chronic 04/04/05) Mucoid cyst of joint (Acute) right hand third digit Sensorineural hearing loss of combined sites, bilateral (Acute 06/08/16) Tinnitus (Acute 06/27/15) Foreign body in right ear (Acute) Cerumen impaction (Acute) Abnormal auditory perception (Acute) Scleral hemorrhage of right eye (Acute) Overactive bladder (Acute 12/08/23) Nuclear sclerotic cataract of right eye (Acute 03/11/17) Medical History Nondependent alcohol abuse, 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) Peripheral edema Right shoulder pain (10/27/19) Hyperlipidemia (10/10/05) Urinary urgency Vitamin D deficiency (03/03/20) Vertigo Surgical History 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) History of esophagogastroduodenoscopy (EGD) History of colonoscopy History of cataract surgery Family History Father , At age 48 Alcohol use disorder Liver disease Mother , At age 81 Dementia Sister Diabetes Brother Diabetes CAD (coronary artery disease) Spinal disease Other Breast cancer Heart disease Hyperlipidemia Hypertension Stroke Social History Smoking/Tobacco Use Status: Former Tobacco Use Quit Date: 09/23/95 Second Hand Exposure: No Smoking risk assessment performed?: Yes Alcohol Intake: former Drug use: Never Substance use type: does not use Adopted: No Caregiver/Support person: No Foster care: No Household members: other Details: Sister Housing: house Number of Children: 2 number of grandchildren: 2 Communication Needs: Hard of Hearing and Corrective Lenses Education Level: high school Do you need help understanding health information?: Often current occupation: retired Pets and animals: No Sexually active: No Do you think of yourself as: straight/heterosexual Current gender identity: female What is your relationship status?: How often do you talk on the phone with friends or family?: once per week How often do you get together with friends or relatives?: once per week Do you belong to any clubs or organized social groups?: no Panel score (0-1 are the most socially isolated patients): 0 What type of physical activity do you participate in: none Tuyet/Evangelical: Hindu Special tuyet needs: No Seatbelt use: always Drive intox 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 Do you feel safe at home: Yes Do you feel safe in your relationship?: Yes Readmission Within the Past 30 Days Yes or No: No SDOH(Care Management) Screening Will the Patient Participate in the Screening?: Yes Do you worry about having a steady place to live?: no Problems where you live: no known problems In the past 12 months, have you had to go without electric, gas, oil or water in your home?: no Have you or anyone in your house had to go without enough food to eat?: no Has lack of transportation kept you from medical appointments or from doing things needed for daily living?: no Has anyone in your support network made you feel unsafe for any reason?: no Anticipated HH Services Anticipated HH Services at Discharge [facility] Needed, PT and RN Anticipated Date of Discharge: 08/31/24. Following Provider: Jessica Russell.
--- NOTE | 2024-08-31 12:57 | CMDISCH_ITS ---
Date of service: 08/31/24 Time of Service: 12:57 LACE Index Scoring Tool Questions: Length of Stay (in days): 1 Was the patient admitted via the E.D.?: Yes E.D. Visits: 1 Answers: Total Score: 5 Risk of Readmission: Low Risk Care Management Discharge Plan Reason for Hospitalization: stroke Discharge Plan: Padmini is discharged home today with new orders for HH PT and RN, and also daily atorvastatin and low dose aspirin. She will f/u with her PCP and continue per her plan of care. She will transport home in a private vehicle with her daughter. Patient/Family Education Needs: Review of discharge instructions, activity, szymanski itations, f/u plan and discuss Ask me 3. Services Needed at Discharge: Home Health Care Services (new PT and RN) SDOH Health Related Social Needs: No Data to Display
--- NOTE | 2024-08-31 13:53 | PDOC.HHF2F_ITS ---
Home Health Referral Home Health Orders Clinical synopsis of why skilled professionals are needed: This 88-year-old female patient with a past medical history of hypertension presented to the ED at [facility] on 08/30/2024 for evaluation of left-sided weakness and difficulty ambulating starting on 08/29/[address] was negative for any acute findings. CTA of brain showed mild calcification in the cavernous internal carotid arteriesand was otherwise normal.The CTA neck was normal CTA w/o visible atherosclerotic plaque. CBC and chemistyr were unremarkable ecept for a creatinine at 1.4 with baselin around 1.1- 1.2. A tele-neurology consult was completed with recommendations for plavix, aspirin and loading, high intensity statin therapy with lipitor, as well as admission on telemetry for complete stroke work-up with suspicion of a thalamic infarct with MRI, echocardiogram, lipids and hemoglobin A1C. The hopitalist team admitted the patient to the medical surgical floor for evaluation and management of CVA . The patient remained in a sinus rhythm throughout the stay. Anti-hypertensive medicines were held for permissive hypertension and the patient remained hemodynamically stable.The MRI showed a prominent right pontine infarct. Dr. Hdez from tele-neuro at [facility] did not emit new recommendations but related that the competed echo w/o bubble study was adequate. The echocardiogram measured and LVEF of 57% and the saline bubble contrast was nonconclusive. Lipid panel showed acceptable values, A1C could not be obtained d/t equipment failure. The patient will be discharge home with home health physical therapy, occupational therapy and nursing with follow-up with her PCP with in 7 days of discharge. The will need a neurology follow-up as per shared decision making with her PCP. Scripts for daily aspirin 81 mg, Plavix 75 mg daily for 21 days,and Lipitor 80 mg daily were sent electronically to the pharmacy. The patient can resume her antihypertensive regimen in AM. Prevagen was held. Discussed with Dr. Muniz Medical diagnosis necessitation home health referral: CVA/ pontine infarct Registered Nurse: Check all that apply Instruct on new or changed medication(s)/assess compliance: Ordered Assess for exacerbation of medical condition, instruct patient/caregivers on signs and symptoms to report for early detection: Ordered Physical Therapist: Check all that apply Increase strength & endurance for safe mobility at home: Ordered To design/establish home maintenance program: Ordered Fall reduction therapy program for patient with history of frequent falls: Ordered Home safety evaluation and teaching/gait training including stair management (if applicable): Ordered Occupational Therapist: Evaluate and treat for patient unable to perform ADL/IADL/self-care: Ordered Upper extremity strengthening, range and motion: Ordered Home Bound Status Requires the aid of supportive device (check all that apply): Walker Describe why leaving home would require a considerable and taxing effort: Requires frequent rest periods Encounter Date and Reason: I certify that a FTF encounter for this patient was performed on August 31, 2024 and that such encounter was related to the primary reason the patient requires home health services. The encounter was conducted in the following manner: * By me as the certifying physician, RECYCLING ASSISTANT, PA or * By an inpatient physician, RECYCLING ASSISTANT or PA during an inpatient stay who communicated findings to me, Certification And Authentication I certify that I composed the above information based on my clinical judgment relating to this patient's medical condition and, if applicable, clinical findings communicated to me by the NPP or inpatient physician who performed the FTF encounter. Name of Provider that will be monitoring home health services: Jessica Russell
[2024-08-31 14:30] LABS: Hemoglobin A1C 5.1 % (<5.7)
--- NOTE | 2024-09-22 08:23 | NUR.NOTE ---
Access chart to view the Activity status' as to whether or not she came in by ambulance. Nursing Note:
== END 2024-08-31 14:56 | disposition home health service (06) | DRG 65 ==
LOC: ER 15:44 → MS 16:42
PROVIDERS: Nurse Practitioner Acute Care; Admitting Provider Family Medicine; Emergency Provider Emergency Medicine; PCP Nurse Practitioner Family; Visit Provider Family Medicine
DX: I63.9 Cerebral infarction, unspecified (principal); G81.94 Hemiplegia, unspecified affecting left nondominant side; N32.81 Overactive bladder; I10 Essential (primary) hypertension; F41.9 Anxiety disorder, unspecified; R29.707 NIHSS score 7; R47.1 Dysarthria and anarthria; R41.3 Other amnesia; I44.7 Left bundle-branch block, unspecified; F32.9 Major depressive disorder, single episode, unspecified; H90.3 Sensorineural hearing loss, bilateral; Z96.643 Presence of artificial hip joint, bilateral; E55.9 Vitamin D deficiency, unspecified; E78.5 Hyperlipidemia, unspecified; F10.11 Alcohol abuse, in remission; R39.15 Urgency of urination
CPT/HCPCS: 00123; 36415; 70496; 70498; 80048; 80053; 80061; 93005; 97162; 99285; 70551; 81003; 83036; 83735; 84484; 85025; 85610; 85730; 93010; 93306; 99222; 99239; J1650; J3490

== ENCOUNTER 2024-09-08 13:49 | Outpatient (REF) | payer MEDICARE, SELFPAY | END 2024-09-08 13:50 | disposition home or self-care (01) | LOC: LBN 13:49 | PROVIDERS: PCP Nurse Practitioner Family; Visit Provider Nurse Practitioner Family | DX: R35.0 Frequency of micturition (principal) | CPT/HCPCS: 87086 ==

== ENCOUNTER → 2024-09-09 14:16 | Outpatient (BNVA) | payer MEDICARE, SELFPAY | PROVIDERS: PCP Nurse Practitioner Family; Referring Provider Nurse Practitioner Family; Visit Provider Nurse Practitioner Gerontology | DX: N32.81 Overactive bladder (principal); F41.9 Anxiety disorder, unspecified; R06.83 Snoring | CPT/HCPCS: 51798; 99214 ==

== ENCOUNTER 2024-09-10 09:45 | Outpatient (CLI) | payer MEDICARE, SELFPAY | END 2024-09-10 09:46 | disposition home or self-care (01) | PROVIDERS: PCP Nurse Practitioner Family; Visit Provider Nurse Practitioner Family | DX: I63.9 Cerebral infarction, unspecified (principal) | CPT/HCPCS: 93246 ==

== ENCOUNTER → 2024-09-24 10:37 | Outpatient (BNVA) | payer MEDICARE, SELFPAY | PROVIDERS: PCP Nurse Practitioner Family; Referring Provider Nurse Practitioner Family; Visit Provider Psychiatry & Neurology Neurology | DX: I63.9 Cerebral infarction, unspecified (principal); G81.94 Hemiplegia, unspecified affecting left nondominant side; I10 Essential (primary) hypertension; E78.5 Hyperlipidemia, unspecified | CPT/HCPCS: 99214 ==

== ENCOUNTER 2024-10-01 08:06 | Outpatient (CLI) | payer MEDICARE, SELFPAY ==
--- NOTE | 2024-10-01 08:54 | W.CARDEVENT ---
Date of service: 10/01/24 Time of Service: 08:54 Cardiac Event Recorder Referring Provider:: Jessica Russell Indications:: Cerebral infarction Cardiac Event Note: This is a cardiac event monitor. Patient was monitored for 11 days and 13 hours Predominant rhythm was sinus with an average heart rate of 75. Minimum was 54, maximum 122. There were rare ventricular ectopic beats. There are moderately frequent atrial premature beats. There were multiple runs of the premature atrial contractions. Paroxysmal atrial fibrillation was noted. Longest episode was 53 minutes. Heart rate and atrial fibrillation were generally 100 to 150-minute There was no high-grade AV block, no pauses greater than 3 seconds Symptoms were reported which had no correlation to any dysrhythmia
== END 2024-10-01 08:07 | disposition home or self-care (01) ==
LOC: CARDOPNVT 08:06
PROVIDERS: PCP Nurse Practitioner Family; Visit Provider Internal Medicine Cardiovascular Disease
DX: I63.9 Cerebral infarction, unspecified (principal); I49.1 Atrial premature depolarization; I48.0 Paroxysmal atrial fibrillation
CPT/HCPCS: 93248

== ENCOUNTER 2024-10-09 11:07 | Outpatient (CLI) | payer MEDICARE, SELFPAY ==
--- NOTE | 2024-10-09 11:15 | RT.EKG_ITS ---
APPROVED REPORT Exam: Resting ECG Reason for Exam: baseline Patient Location: O HR:91 bpm ECG Measurements Heart Rate 91 AXIS IN 175 P 8 QRSd 135 QRS -25 QT 378 T 126 QTc 466 Conclusion Sinus rhythm...normal P axis, V-rate 50- 99 Left bundle branch block...QRSd>120, broad/notched R Baseline wander in lead(s) V6
== END 2024-10-09 11:08 | disposition home or self-care (01) ==
LOC: DI.CARD 11:15
PROVIDERS: PCP Nurse Practitioner Family; Referring Provider Nurse Practitioner Family; Visit Provider Internal Medicine Cardiovascular Disease
DX: I48.0 Paroxysmal atrial fibrillation (principal); I44.7 Left bundle-branch block, unspecified
CPT/HCPCS: 93010

== ENCOUNTER → 2024-10-09 11:07 | Outpatient (BNVA) | payer MEDICARE, SELFPAY | PROVIDERS: PCP Nurse Practitioner Family; Referring Provider Nurse Practitioner Family; Visit Provider Internal Medicine Cardiovascular Disease | DX: I44.7 Left bundle-branch block, unspecified (principal); I48.0 Paroxysmal atrial fibrillation | CPT/HCPCS: 93005; 99214 ==

== ENCOUNTER 2024-10-29 07:41 | Emergency (ER) | payer MEDICARE, SELFPAY ==
[2024-10-29 07:42] VITALS: BP 149/34; PULSE 61; RESP 16; TEMP 36.7; O2SAT 100
--- NOTE | 2024-10-29 08:00 | DI.CT_ITS ---
Exam(s) CT THORACIC LUMBAR SPINE WO EXAM: CT THORACIC LUMBAR SPINE WO CLINICAL HISTORY: fall 1 week ago, pain. TECHNIQUE: Imaging Protocol: Axial, coronal and sagittal images were reconstructed utilizing bone an d soft tissue algorithm. COMPARISON: CR XR DEXA BONE DENSITY W/WO JORGITO from 01/19/2022 FINDINGS: Thoracic spine: Bones: Mild compression fracture of the anterior endplate of T10. No additional fractures. No retro pulsion. The alignment of the spine is normal including the cervicothoracic junction. Soft tissues: The soft tissues of the chest are unremarkable. No large disk herniations are identifie d. Lumbar spine: Bones: No acute fracture is identified. Degenerative disc changes and facet degenerative changes are present. . There is severe narrowing of the L5-S1 disc space. There is moderate central canal sten osis at L4-5 secondary to combination of degenerative changes. Is mild central canal stenosis at L3- 4. Alignment: Normal. Soft tissues: There is no large disc herniation. No paraspinal hematoma. IMPRESSION: Mild compression fracture of the superior endplate of T10. No acute abnormality of the lumbar spine. RADIATION DOSE DELIVERED: 1,789.01mGy.cm Total DLP DATA REPOSITORY: All CT scans at this facility are submitted to the National Radiology Data Registry (NRDR) Dose Index Registry (DIR) with the [employer] (ACR). RADIATION OPTIMIZATION: All CT scans at this facility use at least one of these dose optimization te chniques: automated exposure control; mA and/or kV adjustment per patient size (includes targeted exa ms where dose is matched to clinical indication); or iterative reconstruction.
--- NOTE | 2024-10-29 08:07 | W.ED.GENAD ---
Discharge Plan Disposition Patient Disposition: Home Condition: Stable Discharge Details Clinical Impression: Compression fracture of T10 vertebra Primary Care Provider: Jessica Russell ED Provider: Harry Emmanuel Home Meds and New Rx's Prescriptions: New lidocaine 5 % adhesive patch,medicated 1 patch topical DAILY Qty: 30 0RF Rx Instructions: leave on most painful area for up to 12 hrs Continued atorvastatin 10 mg tablet 10 mg PO DAILY Qty: 90 3RF Eliquis 5 mg tablet 5 mg PO BID Qty: 60 2RF mirabegron [Myrbetriq] 50 mg tablet extended release 24 hr 50 mg PO DAILY Qty: 90 3RF cholecalciferol (vitamin D3) 25 mcg (1,000 unit) capsule 25 mcg PO DAILY Patient Comments: takes occasionally acetaminophen [Tylenol Arthritis Pain] 650 mg tablet extended release 1,300 mg PO Q12H lisinopril 5 mg tablet 5 mg PO DAILY Qty: 90 3RF aspirin 81 mg capsule 81 mg PO DAILY Qty: 90 3RF buspirone 10 mg tablet 10 mg PO TID Qty: 90 3RF Discharge Instructions Instructions: Vertebral Compression Fracture ED Additional Instructions: Follow-up with your primary care provider especially if you are not improving in 1 to 2 weeks. You can take a dose of 400mg ibuprofen if needed, try not to take this every day. If you feel more ill, have severe worsening pain or new symptoms such as persistent vomiting return to the emergency department for reevaluation HPI General Mode of arrival: ambulatory. Date/Time Provider Initiated Documentation: 10/29/24 07:41. Limitations to Documentation: no limitations. Information obtained by: patient. History of Present Illness 89 year old F presents to the emergency department with the chief complaint of back pain s/p fall one week ago, described as moderate, Patient started experiencing this week(s) (1) and it has been constant. No relieving factors improve symptom(s), No exacerbating factors reported . Patient notes no other symptoms.. Related Data Home Medications ?Medication ?Instructions ?Recorded ?Confirmed acetaminophen 650 mg 1,300 mg PO Q12H 07/11/22 10/29/24 tablet,extended release (Tylenol Arthritis Pain) cholecalciferol (vitamin D3) 25 25 mcg PO DAILY 07/11/22 10/29/24 mcg (1,000 unit) capsule mirabegron 50 mg tablet,extended 50 mg PO DAILY #90 tabs 01/22/24 10/29/24 release 24 hr (Myrbetriq) lisinopril 5 mg tablet 5 mg PO DAILY #90 tabs 07/01/24 10/29/24 aspirin 81 mg capsule 81 mg PO DAILY #90 caps 09/18/24 10/29/24 atorvastatin 10 mg tablet 10 mg PO DAILY #90 tabs 09/24/24 10/13/24 apixaban 5 mg tablet (Eliquis) 5 mg PO BID #60 tabs 10/03/24 10/29/24 buspirone 10 mg tablet 10 mg PO TID #90 tabs 10/05/24 10/29/24 lidocaine 5 % topical patch 1 patch topical DAILY #30 ea 10/29/24 Previous Rx's ?Medication ?Instructions ?Recorded mirabegron 50 mg tablet,extended 50 mg PO DAILY #90 tabs 01/22/24 release 24 hr (Myrbetriq) lisinopril 5 mg tablet 5 mg PO DAILY #90 tabs 07/01/24 aspirin 81 mg capsule 81 mg PO DAILY #90 caps 09/18/24 atorvastatin 10 mg tablet 10 mg PO DAILY #90 tabs 09/24/24 apixaban 5 mg tablet (Eliquis) 5 mg PO BID #60 tabs 10/03/24 buspirone 10 mg tablet 10 mg PO TID #90 tabs 10/05/24 lidocaine 5 % topical patch 1 patch topical DAILY #30 ea 10/29/24 Allergies Allergy/AdvReac Type Severity Reaction Status Date / Time codeine AdvReac Intermediate Nausea Verified 10/29/24 07:51 oxybutynin AdvReac Mild dry mouth Verified 10/29/24 07:51 General Stated Complaint: Chest/Rib JETHRO: 4 Review of Systems All systems reviewed & are unremarkable except as noted in HPI and below Constitutional Constitutional: Denies chills, Denies fever(s) and Denies weakness Cardiovascular Cardiovascular: Denies chest pain and Denies dyspnea Respiratory Respiratory: Denies cough and Denies dyspnea Gastrointestinal Gastrointestinal: Denies abdominal pain, Denies nausea and Denies vomiting Musculoskeletal Musculoskeletal: Reports back pain Neurologic Neurologic: Denies weakness Exam Const General: no acute distress Orientation: alert HENMT Head: normal to inspection Ears: external ears normal General nose exam: external nose normal Mouth: moist mucous membranes Eyes General: appearance normal, both eyes and all related structures Neck Neck: normal visual inspection, full ROM and nontender Resp Effort & Inspection: normal respiratory effort and able to speak in complete sentences Cardio Rate: regular rate GI Palpation: nontender Back/Spine/Pelvis Back: no CVA tenderness Thoracic/Lumbar Spine: thoracic spinal tenderness and lumbar spinal tenderness Skin General skin exam: no rashes or lesions noted Neuro General: patient alert and patient oriented x3 Extrem General: normal to inspection Psych Mental Status: mental status grossly normal Course Vital Signs Vital signs: Respiratory Effort Normal 10/29/24 07:55 Respiratory Depth Shallow 10/29/24 07:55 Pain Level 3 10/29/24 07:55 Medical Decision Making 89-year-old female who recently had a stroke and is on Eliquis for A-fib comes in after she fell a week ago and has continued back pain since. She is ambulatory on arrival. She denies any headaches, neck pain, chest pain, abdominal pain. She says she fell because she bent over to check her thermostat for the temperature outside and while leaning down she lost balance and fell backwards. No LOC. She has no signs of trauma to the head, pupils are equal and reactive to light. She has no neck tenderness with full range of motion. She has tenderness over the lower thoracic and upper lumbar vertebrae. No chest or abdominal tenderness no pain in her extremities. I suspect contusion but will obtain CT thoracic and lumbar spine to evaluate for possible compression fracture. Patient has a compression fracture of the superior endplate of T10. Otherwise no significant findings. Patient is stable and feels better after lidocaine patch and ibuprofen. I discussed results with her. She will follow-up with her PCP especially if pain is not improving in 1 to 2 weeks. Return precautions given Differential Diagnosis Differential Diagnosis: fracture, contusion Quality:SDOH Health Related Social Needs: Health related social needs education (Z55.6) PFSH All Active Problems (Updated 10/29/24 @ 09:53 by Harry Emmanuel MD) Compression fracture of T10 vertebra (Acute) Paresthesia (Acute) Paroxysmal atrial fibrillation (Acute) Left hemiparesis (Acute) Nocturia (Acute) Acute CVA (cerebrovascular accident) (Acute) CVA (cerebral vascular accident) (Chronic) Family history of dementia (Acute) Memory changes (Acute) Anxiety (Chronic 06/03/07) Left bundle branch block (Acute 10/27/19) Presence of hip joint prosthesis (Acute 05/10/21) Edema (Acute 10/29/19) Non-scarring alopecia (Acute 03/04/15) Disorder of nail (Acute 10/24/20) Follicular cyst of skin and subcutaneous tissue (Acute 05/09/22) Gastritis (Acute 04/24/21) Sinusitis (Acute 01/23/16) Essential hypertension (Acute 03/03/20) Hearing loss (Acute 02/09/19) Epiphora (Acute 05/13/23) Adjustment disorder (Chronic 04/19/20) Mucoid cyst of joint (Acute) right hand third digit Sensorineural hearing loss of combined sites, bilateral (Acute 06/08/16) Tinnitus (Acute 06/27/15) Foreign body in right ear (Acute) Cerumen impaction (Acute) Abnormal auditory perception (Acute) Scleral hemorrhage of right eye (Acute) Nuclear sclerotic cataract of right eye (Acute 03/11/17) Medical History 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) Major depression (04/04/05) Overactive bladder (12/08/23) Nondependent alcohol abuse, 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) Peripheral edema Right shoulder pain (10/27/19) Hyperlipidemia (10/10/05) Urinary urgency Vitamin D deficiency (03/03/20) Vertigo Surgical History 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) History of esophagogastroduodenoscopy (EGD) History of colonoscopy History of cataract surgery Family History Father , At age 48 Alcohol use disorder Liver disease Mother , At age 81 Dementia Sister Diabetes Brother Diabetes CAD (coronary artery disease) Spinal disease Other Breast cancer Heart disease Hyperlipidemia Hypertension Stroke Social History Smoking/Tobacco Use Status: Former Tobacco Use Quit Date: 09/23/95 Second Hand Exposure: No Smoking risk assessment performed?: Yes Alcohol Intake: former Drug use: Never Substance use type: does not use Adopted: No Caregiver/Support person: No Foster care: No Household members: other Details: Sister Housing: house Number of Children: 2 number of grandchildren: 2 Communication Needs: Hard of Hearing and Corrective Lenses Education Level: high school Do you need help understanding health information?: Often current occupation: retired Pets and animals: No Sexually active: No Do you think of yourself as: straight/heterosexual Current gender identity: female What is your relationship status?: How often do you talk on the phone with friends or family?: once per week How often do you get together with friends or relatives?: once per week Do you belong to any clubs or organized social groups?: no Panel score (0-1 are the most socially isolated patients): 0 What type of physical activity do you participate in: none Tuyet/Confucianist: Baptism Special tuyet needs: No Seatbelt use: always Drive intox or ride w/intox 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
[2024-10-29] MEDS: Ibuprofen 400 MG TAB PO (08:28)
[2024-10-29] MEDS: Lidocaine 5% Patch 1 PATCH TP (09:36)
== END 2024-10-29 10:13 | disposition home or self-care (01) ==
PROVIDERS: Emergency Provider Emergency Medicine; PCP Nurse Practitioner Family
DX: S22.070A Wedge compression fracture of T9-T10 vertebra, initial encounter for closed fracture (principal); I10 Essential (primary) hypertension; I48.91 Unspecified atrial fibrillation; Z79.01 Long term (current) use of anticoagulants; Z79.82 Long term (current) use of aspirin; W18.39XA Other fall on same level, initial encounter; Y93.89 Activity, other specified; Y92.018 Other place in single-family (private) house as the place of occurrence of the external cause
CPT/HCPCS: 99284; 72128; 72131; 99283

== ENCOUNTER → 2024-12-31 13:25 | Outpatient (BNVA) | payer MEDICARE, SELFPAY | PROVIDERS: PCP Nurse Practitioner Family; Referring Provider Nurse Practitioner Family; Visit Provider Nurse Practitioner Adult Health | DX: R41.3 Other amnesia (principal); Z86.73 Personal history of transient ischemic attack (TIA), and cerebral infarction without residual deficits | CPT/HCPCS: 99214 ==

== ENCOUNTER 2025-01-04 15:46 | Outpatient (CLI) | payer MEDICARE, SELFPAY ==
--- NOTE | 2025-01-04 15:19 | DI.RAD_ITS ---
Exam(s) XR HIP RT AP LAT ONLY EXAM: XR HIP RT AP LAT ONLY INDICATION: eval R hip pain s/p BELA. COMPARISON: CR RIGHT HIP COMPLETE POST REDUC from 06/21/2017 TECHNIQUE: 2D digital imaging was performed. Two views. FINDINGS: The alignment of total right hip prosthesis is unchanged. There are no abnormal surrounding bony sj encies. DATA REPOSITORY: RADIATION DOSE DELIVERED:
== END 2025-01-04 15:47 | disposition home or self-care (01) ==
LOC: DIORS 15:46
PROVIDERS: PCP Nurse Practitioner Family; Referring Provider Nurse Practitioner Family; Visit Provider Student in an Organized Health Care Education/Training Program
DX: S76.811A Strain of other specified muscles, fascia and tendons at thigh level, right thigh, initial encounter; X58.XXXA Exposure to other specified factors, initial encounter; G89.29 Other chronic pain; Z96.641 Presence of right artificial hip joint
CPT/HCPCS: 99214; 73502

== ENCOUNTER 2025-01-14 01:20 | Outpatient (CLI) | payer MEDICARE, SELFPAY ==
--- NOTE | 2025-01-14 12:53 | DI.CT_ITS ---
Exam(s) CT LOWER EXTREMITY RT WO EXAM: CT LOWER EXTREMITY RT WO CLINICAL HISTORY: RT HIP PAIN,M25.551. TECHNIQUE: Imaging Protocol: Axial computed tomography images with coronal and sagittal reformatted images were created and reviewed. COMPARISON: CR XR HIP RT AP LAT ONLY from 01/04/2025 FINDINGS: Bones: The patient has a right total hip arthroplasty. No suspicious lucencies are seen about the o rthopedic hardware to suggest loosening. No periprosthetic fracture is identified. Bony alignment i s satisfactory. No cellulitic or osteomyelitic changes are identified. The bones are normally white shoe examiner alized. No lytic or sclerotic lesions are identified. Soft Tissues: Atherosclerotic calcification is present. There may be mild fatty atrophy of the glute al muscles. The muscles are otherwise unremarkable. No soft tissue mass is appreciated. IMPRESSION: 1. Right total hip arthroplasty without evidence of loosening. If there is continued clinical concer n, nuclear medicine bone scan should be considered for further evaluation. 2. No acute fracture. RADIATION DOSE DELIVERED: 386.36mGy.cm Total DLP 386.36mGy.cm Total DLP DATA REPOSITORY: All CT scans at this facility are submitted to the National Radiology Data Registry (NRDR) Dose Index Registry (DIR) with the [employer] (ACR). RADIATION OPTIMIZATION: All CT scans at this facility use at least one of these dose optimization te chniques: automated exposure control; mA and/or kV adjustment per patient size (includes targeted exa ms where dose is matched to clinical indication); or iterative reconstruction.
== END 2025-01-14 01:40 ==
LOC: DI 01:20
PROVIDERS: PCP Nurse Practitioner Family; Visit Provider Student in an Organized Health Care Education/Training Program
DX: M25.551 Pain in right hip (principal); Z96.641 Presence of right artificial hip joint
CPT/HCPCS: 73700

== ENCOUNTER → 2025-01-27 09:24 | Outpatient (BNVA) | payer MEDICARE, SELFPAY | PROVIDERS: PCP Nurse Practitioner Family; Visit Provider Nurse Practitioner Gerontology | DX: N32.81 Overactive bladder (principal) | CPT/HCPCS: 99213 ==

== ENCOUNTER → 2025-02-04 13:43 | Outpatient (BNVA) | payer MEDICARE, SELFPAY | PROVIDERS: PCP Nurse Practitioner Family; Referring Provider Nurse Practitioner Family; Visit Provider Student in an Organized Health Care Education/Training Program | DX: M25.551 Pain in right hip (principal); Z96.641 Presence of right artificial hip joint; G89.29 Other chronic pain | CPT/HCPCS: 20611; J1010 ==

== ENCOUNTER → 2025-02-11 10:13 | Outpatient (BNVA) | payer MEDICARE, SELFPAY | PROVIDERS: PCP Nurse Practitioner Family; Referring Provider Nurse Practitioner Family; Visit Provider Nurse Practitioner Gerontology | DX: N32.81 Overactive bladder (principal); Z79.01 Long term (current) use of anticoagulants | CPT/HCPCS: 99214 ==

== ENCOUNTER 2025-03-04 01:17 | Outpatient (CLI) | payer MEDICARE, SELFPAY ==
--- NOTE | 2025-03-04 10:45 | DI.DEXA_ITS ---
Exam(s) XR DEXA BONE DENSITY W/WO JORGITO EXAM: XR DEXA BONE DENSITY W/WO JORGITO CLINICAL HISTORY: Wedge compression fx of T9-T10 vertebra, S22.070A, r/o osteoporosis TECHNIQUE: COMPARISON: CR XR DEXA BONE DENSITY W/WO JORGITO from 01/19/[address] THORACIC LUMBAR SPINE WO from 10/29/2024 FINDINGS: Lateral Spine Image: There is a mild compression deformity of T10. This was present on the CT scan of the lumbar spine from 10/29/2024. This is new since the prior DEXA scan from 2021. Left forearm hip: Total T-Score: -2.0. T- scores: Osteopenia is present. Lumbar Spine: Total T-Score: -0.5 . This compares to 0.1 on the prior examination. Total Z-Score: 2.4 T- and Z-scores: Within normal limits. IMPRESSION: No evidence of osteoporosis.
== END 2025-03-04 01:37 ==
LOC: DI 01:17
PROVIDERS: PCP Nurse Practitioner Family; Visit Provider Nurse Practitioner Family
DX: Z13.820 Encounter for screening for osteoporosis (principal); S22.070D Wedge compression fracture of T9-T10 vertebra, subsequent encounter for fracture with routine healing; X58.XXXD Exposure to other specified factors, subsequent encounter
CPT/HCPCS: 77080

== ENCOUNTER 2025-03-08 08:18 | Day surgery (SDC) | payer MEDICARE, SELFPAY ==
[2025-03-08 08:32] VITALS: BP 138/52; PULSE 86; RESP 16; TEMP 36.5; O2SAT 98
[2025-03-08] MEDS: Lactated Ringers 1,000 ML 80 ML IV (09:00)
--- NOTE | 2025-03-08 09:51 | W.PM.HP.N ---
Date of service: 03/08/25 Time of Service: 09:51 Assessment and Plan Assessment and plan (1) Overactive bladder: Assessment and plan: We will move forward with a transurethral injection of Botox into the detrusor muscle. Hopefully, we will be able to discontinue the Myrbetriq following this procedure. History of Present Illness History of Present Illness Chief Complaint: Urinary Incontinence due to overactive bladder Narrative: This is an 89-year-old woman who has a history of a previous stroke. She has a longstanding history of urinary incontinence related to an overactive bladder. She has been unable to tolerate anticholinergic medications due to chronic constipation. She had no benefit from beta 3 agonists. After discussing additional treatment options, she is agreeable to a initial injection of Botox into the detrusor muscle. She is not having any dysuria or gross hematuria. Review of Systems Narrative: No fevers or chills Hard of hearing. No vision change or dysphasia No diabetes or thyroid dysfunction No shortness of breath, cough or hemoptysis No chest pain No nausea, vomiting, hepatitis, ulcers, jaundice Prior stroke. No seizures or peripheral neuropathy No bleeding disorders or anemia Chronic joint pain. No gout or arthralgia PFSH All Active Problems Osteopenia (Acute) Impacted cerumen of both ears (Acute) Chronic hip pain after total replacement of right hip joint (Acute) Strain of right iliopsoas muscle (Acute) Paresthesia (Acute) Paroxysmal atrial fibrillation (Acute) Left hemiparesis (Acute) Nocturia (Acute) Acute CVA (cerebrovascular accident) (Acute) CVA (cerebral vascular accident) (Chronic) Family history of dementia (Acute) Memory changes (Acute) Anxiety (Chronic 06/03/07) Left bundle branch block (Acute 10/27/19) Presence of hip joint prosthesis (Acute 05/10/21) Edema (Acute 10/29/19) Non-scarring alopecia (Acute 03/04/15) Disorder of nail (Acute 10/24/20) Follicular cyst of skin and subcutaneous tissue (Acute 05/09/22) Gastritis (Acute 04/24/21) Sinusitis (Acute 01/23/16) Essential hypertension (Acute 03/03/20) Hearing loss (Acute 02/09/19) Epiphora (Acute 05/13/23) Adjustment disorder (Chronic 04/19/20) Mucoid cyst of joint (Acute) right hand third digit Sensorineural hearing loss of combined sites, bilateral (Acute 06/08/16) Tinnitus (Acute 06/27/15) Foreign body in right ear (Acute) Cerumen impaction (Acute) Abnormal auditory perception (Acute) Scleral hemorrhage of right eye (Acute) Nuclear sclerotic cataract of right eye (Acute 03/11/17) Medical History Mixed urge and stress incontinence (01/03/16) Constipation 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) Major depression (04/04/05) Overactive bladder (12/08/23) Nondependent alcohol abuse, 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) Peripheral edema Right shoulder pain (10/27/19) Hyperlipidemia (10/10/05) Urinary urgency Vitamin D deficiency (03/03/20) Vertigo Surgical History 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) History of esophagogastroduodenoscopy (EGD) History of colonoscopy History of cataract surgery Family History Father , At age 48 Alcohol use disorder Liver disease Mother , At age 81 Dementia Sister Diabetes Brother Diabetes CAD (coronary artery disease) Spinal disease Other Breast cancer Heart disease Hyperlipidemia Hypertension Stroke Social History Smoking/Tobacco Use Status: Former Tobacco Use Quit Date: 09/23/95 Second Hand Exposure: No Smoking risk assessment performed?: Yes Alcohol Intake: former Drug use: Never Substance use type: does not use Adopted: No Caregiver/Support person: No Foster care: No Household members: other Details: Sister Housing: house Number of Children: 2 number of grandchildren: 2 Communication Needs: Hard of Hearing and Corrective Lenses Education Level: high school Do you need help understanding health information?: Often current occupation: retired Pets and animals: No Sexually active: No Do you think of yourself as: straight/heterosexual Current gender identity: female What is your relationship status?: How often do you talk on the phone with friends or family?: once per week How often do you get together with friends or relatives?: once per week Do you belong to any clubs or organized social groups?: no Panel score (0-1 are the most socially isolated patients): 0 What type of physical activity do you participate in: none Tuyet/Gnosticist: Jehovah'S Witness Special tuyet needs: No Seatbelt use: always Drive intox or ride w/intox 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: No Do you feel safe at home: Yes Do you feel safe in your relationship?: Yes Meds Allergies and Home Medications Allergies Allergy/AdvReac Type Severity Reaction Status Date / Time codeine AdvReac Intermediate Nausea Verified 03/08/25 08:28 oxybutynin AdvReac Mild dry mouth Verified 03/08/25 08:28 Home Medications ?Medication ?Instructions ?Recorded ?Confirmed ?Type acetaminophen 650 mg 1,300 mg PO Q12H 07/11/22 03/05/25 History tablet,extended release (Tylenol Arthritis Pain) cholecalciferol (vitamin D3) 25 25 mcg PO DAILY 07/11/22 03/08/25 History mcg (1,000 unit) capsule mirabegron 50 mg tablet,extended 50 mg PO DAILY #90 tabs 01/22/24 03/08/25 Rx release 24 hr (Myrbetriq) lisinopril 5 mg tablet 5 mg PO DAILY #90 tabs 07/01/24 03/08/25 Rx aspirin 81 mg capsule 81 mg PO DAILY #90 caps 09/18/24 03/05/25 Rx atorvastatin 10 mg tablet 10 mg PO DAILY #90 tabs 09/24/24 03/08/25 Rx apixaban 5 mg tablet (Eliquis) 5 mg PO BID #60 tabs 12/28/24 03/05/25 Rx buspirone 10 mg tablet 10 mg PO TID #180 tabs 02/26/25 03/08/25 Rx sertraline 25 mg tablet 12.5 mg (1/2 x 25 mg) PO DAILY 03/05/25 03/08/25 Rx depression #30 tabs Exam Const General: cooperative Neck Neck: supple Resp Effort & Inspection: normal respiratory effort Auscultation: clear to auscultation bilaterally Cardio Rate: regular rate Rhythm: regular rhythm GI Palpation: soft and no masses Neuro General: patient alert and patient awake Results Last Vital Signs Temp 36.5 C 03/08/25 08:32 Pulse 86 03/08/25 08:32 Resp 16 03/08/25 08:32 BP 138/52 L 03/08/25 08:32 Pulse Ox 98 03/08/25 08:32 Time Spent Time spent with Patient: <40 minutes Time was spent: other
--- NOTE | 2025-03-08 09:54 | W.ANESPRE ---
General Info Date of Service Date Performed: 03/08/25 Height: 5 ft 2 in Weight: 70 kg Body Mass Index (BMI): 28.2 Surgical Procedure: Operation Date: 03/08/25 09:40 Proposed Procedure Side Surgeon p Cystoscopy/Injection of Botox Yao Hernandez MD Meds Allergies and Home Medications Allergies Allergy/AdvReac Type Severity Reaction Status Date / Time codeine AdvReac Intermediate Nausea Verified 03/08/25 08:28 oxybutynin AdvReac Mild dry mouth Verified 03/08/25 08:28 Home Medication ?Medication ?Instructions ?Recorded acetaminophen 650 mg 1,300 mg PO Q12H 07/11/22 tablet,extended release (Tylenol Arthritis Pain) cholecalciferol (vitamin D3) 25 25 mcg PO DAILY 07/11/22 mcg (1,000 unit) capsule mirabegron 50 mg tablet,extended 50 mg PO DAILY #90 tabs 01/22/24 release 24 hr (Myrbetriq) lisinopril 5 mg tablet 5 mg PO DAILY #90 tabs 07/01/24 aspirin 81 mg capsule 81 mg PO DAILY #90 caps 09/18/24 atorvastatin 10 mg tablet 10 mg PO DAILY #90 tabs 09/24/24 apixaban 5 mg tablet (Eliquis) 5 mg PO BID #60 tabs 12/28/24 buspirone 10 mg tablet 10 mg PO TID #180 tabs 02/26/25 sertraline 25 mg tablet 12.5 mg (1/2 x 25 mg) PO DAILY 03/05/25 depression #30 tabs Current Visit Medications: Current Medications Generic Name Dose Route Start Last Admin Trade Name Eb PRN Reason Stop Dose Admin OnabotulinumtoxinA 200 units/ 0 units 03/08/25 06:00 Sodium Chloride 20 ml IJ 03/08/25 23:59 DIRECTED LA Ringer's Solution 1,000 mls @ 80 mls/hr 03/08/25 06:00 03/08/25 09:00 IV 03/08/25 23:59 80 mls/hr INFUSION LA Administration Cefazolin Sodium/Dextrose 2 gm in 50 mls @ 100 mls/hr 03/08/25 06:00 Ancef Duplex IVPB 03/08/25 23:59 PREOP LA IV Miscellaneous Supplies 1 each 03/08/25 06:00 Iv Access IV 03/08/25 23:59 DIRECTED LA Sodium Chloride 0 ml 03/08/25 06:00 Normal Saline Flush 10 Ml Syr IV 03/08/25 23:59 PRN PRN Sodium Chloride 0 ml 03/08/25 06:00 Normal Saline 10 Ml Vial IJ 03/08/25 23:59 DIRECTED PRN Sterile Water 0 ml 03/08/25 06:00 Water,Injection,Sterile 10 Ml Vial IJ 03/08/25 23:59 DIRECTED PRN PFSH Active Problems Active Problems: Problem Status Onset Code Osteopenia Acute M85.80 Impacted cerumen of both ears Acute H61.23 Chronic hip pain after total replacement of right hip joint Acute M25.551, G89.29, Z96.641 Strain of right iliopsoas muscle Acute S76.811A Paresthesia Acute R20.2 Paroxysmal atrial fibrillation Acute I48.0 Left hemiparesis Acute G81.94 Nocturia Acute R35.1 Acute CVA (cerebrovascular accident) Acute I63.9 CVA (cerebral vascular accident) Chronic I63.9 Family history of dementia Acute Z81.8 Memory changes Acute R41.3 Anxiety Chronic 06/03/07 F41.9 Left bundle branch block Acute 10/27/19 I44.7 Presence of hip joint prosthesis Acute 05/10/21 Z96.649 Edema Acute 10/29/19 R60.9 Non-scarring alopecia Acute 03/04/15 L65.9 Disorder of nail Acute 10/24/20 L60.9 Follicular cyst of skin and subcutaneous tissue Acute 05/09/22 L72.9 Gastritis Acute 04/24/21 K29.70 Sinusitis Acute 01/23/16 J32.9 Essential hypertension Acute 03/03/20 I10 Hearing loss Acute 02/09/19 H91.90 Epiphora Acute 05/13/23 H04.209 Adjustment disorder Chronic 04/19/20 F43.20 Mucoid cyst of joint Acute M67.40 Cortical cataract of right eye Resolved H26.9 Sensorineural hearing loss of combined sites, bilateral Acute 06/08/16 H90.3 Tinnitus Acute 06/27/15 H93.19 Foreign body in right ear Acute T16.1XXA Cerumen impaction Acute H61.20 Abnormal auditory perception Acute H93.299 Scleral hemorrhage of right eye Acute H11.31 Nuclear sclerotic cataract of right eye Acute 03/11/17 H25.11 Nuclear sclerotic cataract of left eye Resolved 03/11/17 H25.12 Medical History Medical History Mixed urge and stress incontinence (01/03/16) Constipation 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) Major depression (04/04/05) Overactive bladder (12/08/23) Nondependent alcohol abuse, 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) Peripheral edema Right shoulder pain (10/27/19) Hyperlipidemia (10/10/05) Urinary urgency Vitamin D deficiency (03/03/20) Vertigo Surgical History Surgical History 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) History of esophagogastroduodenoscopy (EGD) History of colonoscopy History of cataract surgery Tobacco Smoking/Tobacco Use Status: Former Tobacco Use Passive smoking exposure: No Second hand exposure: No Alcohol Alcohol Intake: former Substance Use Substance use: Never Substance use type: does not use Vital Signs and Lab Results Vital Signs Most Recent Vital Signs in EMR: Most Recent Vital Signs Temp Pulse Resp BP Pulse Ox 36.5 C 86 16 138/52 L 98 03/08/25 08:32 03/08/25 08:32 03/08/25 08:32 03/08/25 08:32 03/08/25 08:32 Imaging and Studies Imaging and Studies Study information below may be from another EMR and interpreted by another provider. Please see original notes in EMR for more complete details. EKG Summary: 10/09/24 Conclusion Sinus rhythm...normal P axis, V-rate 50- 99 Left bundle branch block...QRSd>120, broad/notched R Baseline wander in lead(s) V6 Echocardiogram Summary: 2020: LVEF 55-59%, mild to mod AR, mild MR. Anesthesia Assessment and Plan Anesthesia History Personal History: No History of Anesthesia Complications Family History: No Family History of Anesthesia Complications Exercise Tolerance Exercise Tolerance: Metabolic Equivalents<4 Pertinent Negatives Pertinent Negatives: No Symptoms of GERD, No Major Cardiovascular Symptoms or Complaints and No Major Pulmonary Symptoms or Complaints Cardiac & Pulmonary Exam Cardiac Exam: Normal S1/S2 Heart Sounds Pulmonary Exam: Clear Bilateral Breath Sounds Implantable Cardiac Device Does patient have a Pacemaker or an ICD?: No Airway Exam Known Difficult Airway: No Mallampati Class: 2 Mouth Opening: Normal (> 3cm) Thyromental Distance: Greater than 3 cm Neck Range of Motion: Full ROM Neck Circumference: Normal Teeth Condition: Normal Dentition (upper and lower partials) ASA Classification ASA Score: ASA 3 Emergency Case?: No NPO Status NPO Status: NPO Clears >2 hours, Solids >8 hours Anesthesia Plan Resuscitation Status: Full Code Anesthesia Technique: General Anesthesia Airway Planned: Natural Airway Monitors Used: Standard Monitors Preoperative Comments:: Stroke August 2024, slight unsteady gait but weakness improved.
[2025-03-08 09:58] VITALS: BMI 28.2
[2025-03-08] MEDS: ceFAZolin 2 GM/50 ML BAG IVPB (10:21)
[2025-03-08] MEDS: Lidocaine 2% Jelly 6 ML SYR (10:40)
[2025-03-08 10:53] VITALS: BP 111/49; PULSE 88; RESP 18; TEMP 36.1; O2SAT 98
--- NOTE | 2025-03-08 10:53 | W.PM.DSUDISC ---
Date of service: 03/08/25 Discharge Plan Disposition Patient Disposition: Home Condition: Stable Discharge Details Reason For Visit: botox injection Attending Provider: Yao Hernandez Primary Care Provider: Jessica Russell Home Meds and New Rx's Prescriptions: No Action atorvastatin 10 mg tablet 10 mg PO DAILY Qty: 90 3RF mirabegron [Myrbetriq] 50 mg tablet extended release 24 hr 50 mg PO DAILY Qty: 90 3RF sertraline 25 mg tablet 12.5 mg PO DAILY Qty: 30 3RF cholecalciferol (vitamin D3) 25 mcg (1,000 unit) capsule 25 mcg PO DAILY Patient Comments: takes occasionally acetaminophen [Tylenol Arthritis Pain] 650 mg tablet extended release 1,300 mg PO Q12H lisinopril 5 mg tablet 5 mg PO DAILY Qty: 90 3RF aspirin 81 mg capsule 81 mg PO DAILY Qty: 90 3RF Eliquis 5 mg tablet 5 mg PO BID Qty: 60 2RF buspirone 10 mg tablet 10 mg PO TID Qty: 180 3RF Discharge Instructions Additional Instructions: You may restart your Eliquis tomorrow. You may stop the Myrbetriq since Botox is used for the same bladder issue You will need a followup visit to see us in 5 to 6 months. Please call our office in about 1 week to give us a progress report. Activity:: Activity as Tolerated Shower/Bathe:: 24 hours Diet:: As Tolerated Discharge Orders Discharge Orders: Discharge Order (Routine); Ordered 03/08/25 Ordered By: Yao Hernandez DS: Diagnosis Discharge Diagnosis (1) Overactive bladder:
--- NOTE | 2025-03-08 10:57 | W.PM.OP ---
Operative Note Operative Note PRE-OP DIAGNOSIS: Overactive bladder POST-OP DIAGNOSIS: same PROCEDURE: cystoscopy with transurethral injection of Botox into detrusor muscle SURGEON: Yao Hernandez ANESTHESIA TYPE: Local By Surgeon and General:No Airway Refer to Anesthesia Record ESTIMATED BLOOD LOSS: 5 PATHOLOGY: none sent COMPLICATIONS: None Patient was transported to: same day Patient's condition: stable Implants: 100 Units Botox Indications: This is an 89-year-old woman who has a history of urinary incontinence due to an overactive bladder. She has nocturia, frequency and urgency. She is unable to tolerate anticholinergic medications. Her symptoms are not well-controlled with beta 3 agonists. She presents for an injection of Botox into the detrusor muscle Findings: Normal-appearing bladder with no papillary or nodular masses. No stones were seen Procedure Description: The patient was given preoperative antibiotics and brought to the operating room on 03/08/2025. After successful induction of general anesthesia without intubation, she was placed in the dorsal lithotomy position. Her genitalia was prepped and draped. 2% Xylocaine jelly was then instilled into the urethra to act as a local anesthetic. A 20 [place] urethrotome sheath was passed through the urethra into the bladder. The bladder was inspected using a 30 degree lens. Both ureteral orifices appeared normal with no blood coming from either side. Using a transurethral injection system, we injected a total of 100 units of Botox into the detrusor muscle. We had diluted the Botox in 20 mL of dilute did not. We injected 1 mL in 20 different locations using a grid pattern of 5 vertical rows and 4 horizontal rolls. We injected just on the posterior bladder wall with no involvement of the trigone. The patient tolerated this procedure well with no complications. Date of Procedure: 03/08/25
[2025-03-08 11:27] VITALS: BP 138/46; PULSE 73; RESP 14; TEMP 36; O2SAT 97
--- NOTE | 2025-03-08 11:32 | W.ANESPOSTOP ---
Postoperative Evaluation Date, Time and Location Date Performed: 03/08/25 Time Performed: 10:56 Patient Location: Day Surgery Unit Vital Signs Most Recent Imported Vital Signs: Most Recent Vital Signs Temp Pulse Resp BP Pulse Ox 36.0 C L 73 14 138/46 L 97 03/08/25 11:27 03/08/25 11:27 03/08/25 11:27 03/08/25 11:27 03/08/25 11:27 Pain Score Most Recent Pain Score: Most Recent Pain Score Pain Level 0 03/08/25 11:27 Assessment Mental Status: Awake (Alert & Oriented to Patient Baseline) Airway and Respiratory Function: Patent airway with normal (patient baseline) respiratory exam Cardiovascular Function: Hemodynamically Stable Hydration Status: Adequately Hydrated Nausea & Vomiting: No Nausea or Vomiting Pain: Pt. Denies Any Pain Peripheral Nerve Block: Patient did not receive a nerve block
== END 2025-03-08 11:50 | disposition home or self-care (01) ==
PROVIDERS: PCP Nurse Practitioner Family; Visit Provider Urology
PROC: (CPT 52287; principal; 2025-03-08 09:30)
DX: N32.81 Overactive bladder (principal); N39.41 Urge incontinence; R35.0 Frequency of micturition; Z86.73 Personal history of transient ischemic attack (TIA), and cerebral infarction without residual deficits; Z79.899 Other long term (current) drug therapy
CPT/HCPCS: 52287; J0585; J0690; J1885; J2003; J2405; J2704

== ENCOUNTER → 2025-03-16 13:19 | Outpatient (BNVA) | payer MEDICARE, SELFPAY | PROVIDERS: PCP Nurse Practitioner Family; Referring Provider Nurse Practitioner Family; Visit Provider Urology | DX: N32.81 Overactive bladder (principal) | CPT/HCPCS: 99213 ==

== ENCOUNTER → 2025-04-05 14:28 | Outpatient (BNVA) | payer MEDICARE, SELFPAY | PROVIDERS: PCP Nurse Practitioner Family; Referring Provider Nurse Practitioner Family; Visit Provider Student in an Organized Health Care Education/Training Program | DX: M25.551 Pain in right hip (principal); G89.29 Other chronic pain; Z96.641 Presence of right artificial hip joint; S76.811A Strain of other specified muscles, fascia and tendons at thigh level, right thigh, initial encounter; X58.XXXA Exposure to other specified factors, initial encounter | CPT/HCPCS: 99213 ==

== ENCOUNTER → 2025-05-17 14:54 | Outpatient (BNVA) | payer MEDICARE, SELFPAY | PROVIDERS: PCP Nurse Practitioner Family; Referring Provider Nurse Practitioner Family; Visit Provider Student in an Organized Health Care Education/Training Program | DX: M25.551 Pain in right hip (principal); Z96.641 Presence of right artificial hip joint; S76.811A Strain of other specified muscles, fascia and tendons at thigh level, right thigh, initial encounter; X58.XXXA Exposure to other specified factors, initial encounter | CPT/HCPCS: 99213 ==

== ENCOUNTER 2025-08-20 11:38 | Outpatient (CLI) | payer MEDICARE, SELFPAY ==
--- NOTE | 2025-08-20 11:30 | RT.EKG_ITS ---
APPROVED REPORT Exam: Resting ECG Reason for Exam: syncope Patient Location: O HR:63 bpm ECG Measurements Heart Rate 63 AXIS KS 177 P 57 QRSd 130 QRS -26 QT 419 T 104 QTc 429 Conclusion Sinus rhythm...normal P axis, V-rate 50- 99 Left bundle branch block...QRSd>120, broad/notched R
== END 2025-08-20 11:39 | disposition home or self-care (01) ==
LOC: DI.KIM 11:39
PROVIDERS: PCP Nurse Practitioner Family; Visit Provider Nurse Practitioner Family
DX: R55 Syncope and collapse (principal); I48.0 Paroxysmal atrial fibrillation; I44.7 Left bundle-branch block, unspecified
CPT/HCPCS: 93010

== ENCOUNTER → 2025-08-20 14:02 | Outpatient (CLI) | payer MEDICARE, SELFPAY ==
--- NOTE | 2025-08-20 11:30 | DI.RAD_ITS ---
Exam(s) XR LUMBAR SPINE COMPLETE EXAM: XR LUMBAR SPINE COMPLETE CLINICAL HISTORY: fall, acute lumbar back pain. TECHNIQUE: 2D digital imaging was performed. Five views. COMPARISON: CT CT THORACIC LUMBAR SPINE WO from 10/29/2024 CR XR DEXA BONE DENSITY W/WO JORGITO from 03/04/2025 FINDINGS: BONES: No fracture or destructive lesion. Vertebral body heights are maintained. facet hypertrophy greatest at L4-5. Lateral hip prostheses are partially visualized. DISKS: Severe narrowing of the L4-5 disc with bridging osteophytes. Rudimentary disc at L5-S1. The remaining intervertebral disc spaces are maintained. ALIGNMENT: Lumbar spinal alignment is within normal limits. Mild dextroscoliosis. SOFT TISSUE: Atherosclerotic calcifications of the aorta. IMPRESSION: Degenerative changes greatest at L5. No acute abnormality. DATA REPOSITORY: RADIATION DOSE DELIVERED:
--- NOTE | 2025-08-20 11:30 | DI.RAD_ITS ---
Exam(s) XR SHOULDER LT COMPLETE 2+V EXAM: XR SHOULDER LT COMPLETE 2+V CLINICAL HISTORY: fall, lt shoulder pain, M25.512. TECHNIQUE: 2D digital imaging was performed. Four views. COMPARISON: No exams were available for comparison FINDINGS: BONES: There is a minimally displaced fracture of the distal clavicle. No additional fractures are identified. There is mild spurring at the undersurface of the acromion. No bony destructive lesion is seen. JOINTS: No dislocation present. Degenerative changes of the glenohumeral joint. There is spurring at the inferior humeral head. SOFT TISSUE: Normal. IMPRESSION: Distal clavicle fracture. DATA REPOSITORY: RADIATION DOSE DELIVERED:
--- NOTE | 2025-08-20 11:30 | DI.RAD_ITS ---
Exam(s) XR THORACIC SPINE COMPLETE EXAM: XR THORACIC SPINE COMPLETE CLINICAL HISTORY: fall, thoracic back pain, M54.6. TECHNIQUE: 2D digital imaging was performed. Three views. COMPARISON: CT CT THORACIC LUMBAR SPINE WO from 10/29/2024 CR XR DEXA BONE DENSITY W/WO JORGITO from 03/04/2025 CR XR LUMBAR SPINE COMPLETE from 08/20/2025 FINDINGS: BONES: Stable mild compression fracture T10.. The vertebral bodies and posterior elements are unremarkable. ALIGNMENT: Mild levoscoliosis. DISKS: Interverebral disc spaces are maintained. Small endplate osteophytes. SOFT TISSUE: Visualized lungs are clear. IMPRESSION: Stable mild T10 compression fracture. DATA REPOSITORY: RADIATION DOSE DELIVERED:
== END ==
LOC: DI 14:02
PROVIDERS: PCP Nurse Practitioner Family; Visit Provider Nurse Practitioner Family
DX: S22.070A Wedge compression fracture of T9-T10 vertebra, initial encounter for closed fracture (principal); S42.032A Displaced fracture of lateral end of left clavicle, initial encounter for closed fracture; M25.512 Pain in left shoulder; M54.6 Pain in thoracic spine; X58.XXXA Exposure to other specified factors, initial encounter
CPT/HCPCS: 72072; 72110; 73030

== ENCOUNTER 2025-08-20 14:33 | Outpatient (CLI) | payer MEDICARE, SELFPAY ==
[2025-08-20 13:00] LABS: HCT 34.0 % (36.0-46.0); HGB 11.7 g/dL (11.2-15.7); MCH 29.0 pg (27.0-33.0); MCHC 34.4 % (32.0-36.0); MCV 84 fL (80-95); MPV 8.4 fL (8.0-11.0); Platelet Count 256 10^3/uL (130-400); RBC 4.04 10^6/uL (3.93-5.22); RDW 13.3 % (11.7-14.6); RDW-SD 41.2 fL; WBC 7.48 10^3/uL (4.4-10.8)
[2025-08-20 14:02] LABS: ALT 21 U/L (10-49); AST 26 U/L (<34); Albumin 4.3 g/dL (3.2-5.0); Alkaline Phosphatase 96 U/L (46-116); Anion Gap 9.7 mmol/L (3-11); BUN 28 mg/dL (9-23); Bilirubin, Total 0.80 mg/dL (0.2-1.2); CO2 25.3 mmol/L (20.0-31.0); Calcium 9.4 mg/dL (8.3-10.6); Chloride 105 mmol/L (98-107); Cholesterol 171 mg/dL (<200); Glucose 98 mg/dL (74-106); HDL Cholesterol 50 mg/dL (>40); Potassium 4.4 mmol/L (3.5-5.1); Sodium 140 mmol/L (136-145); Total Protein 6.9 g/dL (5.7-8.2)
== END 2025-08-20 14:34 | disposition home or self-care (01) ==
LOC: LBO 14:37
PROVIDERS: PCP Nurse Practitioner Family; Visit Provider Nurse Practitioner Family
DX: I48.0 Paroxysmal atrial fibrillation (principal); I63.9 Cerebral infarction, unspecified; R55 Syncope and collapse
CPT/HCPCS: 36415; 80053; 80061; 85027

== ENCOUNTER 2025-08-26 11:33 | Outpatient (CLI) | payer MEDICARE, SELFPAY ==
--- NOTE | 2025-08-26 11:30 | RT.EKG_ITS ---
APPROVED REPORT Exam: Resting ECG Reason for Exam: syncope,PAF Patient Location: O HR:65 bpm ECG Measurements Heart Rate 65 AXIS FL 181 P 34 QRSd 135 QRS -28 QT 411 T 129 QTc 428 Conclusion Sinus rhythm...normal P axis, V-rate 50- 99 Left bundle branch block...QRSd>120, broad/notched R
== END 2025-08-26 11:34 | disposition home or self-care (01) ==
LOC: DI.CARD 11:45
PROVIDERS: PCP Nurse Practitioner Family; Referring Provider Nurse Practitioner Family; Visit Provider Internal Medicine Cardiovascular Disease
DX: R55 Syncope and collapse (principal); I48.0 Paroxysmal atrial fibrillation; I44.7 Left bundle-branch block, unspecified
CPT/HCPCS: 93010

== ENCOUNTER → 2025-08-26 11:33 | Outpatient (BNVA) | payer MEDICARE, SELFPAY | PROVIDERS: PCP Nurse Practitioner Family; Referring Provider Nurse Practitioner Family; Visit Provider Internal Medicine Cardiovascular Disease | DX: R55 Syncope and collapse (principal); I48.0 Paroxysmal atrial fibrillation; I10 Essential (primary) hypertension | CPT/HCPCS: 99214; 93005 ==

== ENCOUNTER 2025-08-31 12:52 | Outpatient (CLI) | payer MEDICARE, SELFPAY ==
--- NOTE | 2025-08-31 10:30 | DI.RAD_ITS ---
Exam(s) XR CLAVICLE LT EXAM: XR CLAVICLE LT CLINICAL HISTORY: F/U FRACTURE. TECHNIQUE: 2D digital imaging was performed. COMPARISON: CR XR SHOULDER LT COMPLETE 2+V from 08/20/2025 FINDINGS: Two views Stable appearance of the fracture site in the lateral aspect of the left clavicle. There has been some healing and no further displacement. The AC joint is not distracted. Significant osteoarthritic degenerative changes are again noted in the ipsilateral glenohumeral joint. IMPRESSION: Stable appearance DATA REPOSITORY: RADIATION DOSE DELIVERED:
== END 2025-08-31 12:53 | disposition home or self-care (01) ==
LOC: DIORS 12:53
PROVIDERS: PCP Nurse Practitioner Family; Visit Provider Student in an Organized Health Care Education/Training Program
DX: S42.032A Displaced fracture of lateral end of left clavicle, initial encounter for closed fracture (principal); X58.XXXA Exposure to other specified factors, initial encounter
CPT/HCPCS: 99213; 73000

== ENCOUNTER 2025-09-09 08:03 | Day surgery (SDC) | payer MEDICARE, SELFPAY ==
[2025-09-09] MEDS: MacroBID 100 MG CAP PO (07:40)
[2025-09-09 08:01] VITALS: BP 181/48; PULSE 68; RESP 18; TEMP 36.5; O2SAT 99
--- NOTE | 2025-09-09 08:07 | ANES.PREOP_ITS ---
General Info Date of Service Date Performed: 09/09/25 Height: 5 ft 2 in Weight: 66.6 kg Body Mass Index (BMI): 26.8 Surgical Procedure: Operation Date: 09/09/25 08:40 Proposed Procedure Side Surgeon p Cystoscopy/Injection of Botox Yao Hernandez MD Meds Allergies and Home Medications Allergies Allergy/AdvReac Type Severity Reaction Status Date / Time codeine AdvReac Intermediate Nausea Verified 09/09/25 08:01 oxybutynin AdvReac Mild dry mouth Verified 09/09/25 08:01 Home Medication ?Medication ?Instructions ?Recorded acetaminophen 650 mg 1,300 mg PO Q12H 07/11/22 tablet,extended release (Tylenol Arthritis Pain) cholecalciferol (vitamin D3) 25 25 mcg PO DAILY mcg (1,000 unit) capsule aspirin 81 mg capsule 81 mg PO DAILY #90 caps 08/24 04/15 sertraline 50 mg tablet 75 mg (1.5 x 50 mg) PO DAILY 06/23/25 depression #135 tabs lisinopril 5 mg tablet 5 mg PO DAILY #90 tabs 06/29 atorvastatin 20 mg tablet 20 mg PO DAILY cholesterol # 90 tabs 08/20/25 apixaban 2.5 mg tablet 2.5 mg PO BID #60 tabs 08/27 Current Visit Medications: Current Medications Generic Name Dose Route Start Last Admin Trade Name Freq PRN Reason Stop Dose Admin OnabotulinumtoxinA 100 units/ 0 units 09/09/25 06:00 Sodium Chloride 20 ml IJ 09/09/25 23:59 DIRECTED LA Ringer's Solution 1,000 mls @ 80 mls/hr 09/09/25 06:00 IV 09/09/25 23:59 INFUSION LA Nitrofurantoin Macrocrystals 100 mg 09/09/25 06:00 09/09/25 07:40 Macrobid 100 Mg Cap PO 09/09/25 23:59 100 mg PREOP LA Administration Sodium Chloride 0 ml 09/09/25 06:00 Normal Saline Flush 10 Ml Syr IV 09/09/25 23:59 PRN PRN Sodium Chloride 0 ml 09/09/25 06:00 Normal Saline 10 Ml Vial IJ 09/09/25 23:59 DIRECTED PRN Sterile Water 0 ml 09/09/25 06:00 Water,Injection,Sterile 10 Ml Vial IJ 09/09/25 23:59 DIRECTED PRN [facility] Active Problems Active Problems: Problem Status Onset Code Closed left clavicular fracture Acute ~08/14/25 S42.002A Balance problem Acute R26.89 Weakness Acute R53.1 Back pain Acute M54.9 Syncope and collapse Acute R55 Thoracic back pain Acute M54.6 Acute lumbar back pain Acute M54.50 Shoulder pain, left Acute M25.512 Impairment of speech discrimination Acute H93.299 Bilateral sensorineural hearing loss Acute H90.3 Vertebral compression fracture Acute M48.50XA Osteopenia Acute M85.80 Chronic hip pain after total replacement of right hip joint Acute M25.551, G89.29, Z96.641 Strain of right iliopsoas muscle Acute S76.811A Paresthesia Acute R20.2 Paroxysmal atrial fibrillation Acute I48.0 Left hemiparesis Acute G81.94 Nocturia Acute R35.1 Acute CVA (cerebrovascular accident) Acute I63.9 CVA (cerebral vascular accident) Chronic I63.9 Family history of dementia Acute Z81.8 Memory changes Acute R41.3 Anxiety Chronic 06/03/07 F41.9 Left bundle branch block Acute 10/27/19 I44.7 Presence of hip joint prosthesis Acute 05/10/21 Z96.649 Edema Acute 10/29/19 R60.9 Non-scarring alopecia Acute 03/04/15 L65.9 Disorder of nail Acute 10/24/20 L60.9 Follicular cyst of skin and subcutaneous tissue Acute 05/09/22 L72.9 Gastritis Acute 04/24/21 K29.70 Sinusitis Acute 01/23/16 J32.9 Essential hypertension Acute 03/03/20 I10 Hearing loss Acute 02/09/19 H91.90 Epiphora Acute 05/13/23 H04.209 Adjustment disorder Chronic 04/19/20 F43.20 Mucoid cyst of joint Acute M67.40 Cortical cataract of right eye Resolved H26.9 Sensorineural hearing loss of combined sites, bilateral Acute 06/08/16 H90.3 Tinnitus Acute 06/27/15 H93.19 Foreign body in right ear Acute T16.1XXA Cerumen impaction Acute H61.20 Abnormal auditory perception Acute H93.299 Nuclear sclerotic cataract of right eye Acute 03/11/17 H25.11 Nuclear sclerotic cataract of left eye Resolved 03/11/17 H25.12 Medical History Medical History Clavicle fracture Impacted cerumen of both ears Scleral hemorrhage of right eye Mixed urge and stress incontinence (01/03/16) Constipation 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) Major depression (04/04/05) Overactive bladder (12/08/23) Nondependent alcohol abuse, 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) Peripheral edema Right shoulder pain (10/27/19) Hyperlipidemia (10/10/05) Urinary urgency Vitamin D deficiency (03/03/20) Vertigo Surgical History Surgical History 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) History of esophagogastroduodenoscopy (EGD) History of colonoscopy History of cataract surgery Tobacco Smoking/Tobacco Use Status: Former Tobacco Use Passive smoking exposure: No Second hand exposure: No Alcohol Alcohol Intake: former Substance Use Substance use: Never Substance use type: does not use Vital Signs and Lab Results Vital Signs Most Recent Vital Signs in EMR: Most Recent Vital Signs Temp Pulse Resp BP Pulse Ox 36.5 C 68 18 181/48 H 99 09/09/25 08:01 09/09/25 08:01 09/09/25 08:01 09/09/25 08:01 09/09/25 08:01 Lab Results Complete Blood Count: WBC, (4.4-10.8) 7.48 10^3/uL 08/20/25, 12:54 RBC, (3.93-5.22) 4.04 10^6/uL 08/20/25, 12:54 Hgb, (11.2-15.7) 11.7 g/dL 08/20/25, 12:54 Hct, (36.0-46.0) 34.0 % L 08/20/25, 12:54 Plt Count, (130-400) 256 10^3/uL 08/20/25, 12:54 Complete Metabolic Panel: Sodium, (136-145) 140 mmol/L 08/20/25, 12:54 Potassium, (3.5-5.1) 4.4 mmol/L 08/20/25, 12:54 Chloride, (98-107) 105 mmol/L 08/20/25, 12:54 Carbon Dioxide, (20.0-31.0) 25.3 mmol/L 08/20/25, 12 :54 BUN, (9-23) 28 mg/dL H 08/20/25, 12:54 Creatinine, (0.55-1.02) 0.98 mg/dL 08/20/25, 12:54 Est GFR (CKD-EPI 2020), (mL/min/1.73m2) 53.58 08/20/25, 12:54 Calcium, (8.3-10.6) 9.4 mg/dL 08/20/25, 12:54 Albumin, (3.2-5.0) 4.3 g/dL 08/20/25, 12:54 Glucose, (74-106) 98 mg/dL 08/20/25, 12:54 Liver Function Panel: ALT, (10-49) 21 U/L 08/20/25, 12:54 AST, (<34) 26 U/L 08/20/25, 12:54 Imaging and Studies Imaging and Studies Study information below may be from another EMR and interpreted by another provider. Please see original notes in EMR for more complete details. EKG Summary: 10/09/24 Conclusion Sinus rhythm...normal P axis, V-rate 50- 99 Left bundle branch block...QRSd>120, broad/notched R Baseline wander in lead(s) V6 Echocardiogram Summary: 2020: LVEF 55-59%, mild to mod AR, mild MR. Anesthesia Assessment and Plan Anesthesia History Personal History: No History of Anesthesia Complications Family History: No Family History of Anesthesia Complications Exercise Tolerance Exercise Tolerance: Metabolic Equivalents<4 Pertinent Negatives Pertinent Negatives: No Symptoms of GERD Cardiac & Pulmonary Exam Cardiac Exam: Normal S1/S2 Heart Sounds Pulmonary Exam: Clear Bilateral Breath Sounds Implantable Cardiac Device Does patient have a Pacemaker or an ICD?: No Airway Exam Known Difficult Airway: No Mallampati Class: 2 Mouth Opening: Normal (> 3cm) Thyromental Distance: Greater than 3 cm Neck Range of Motion: Full ROM Neck Circumference: Normal Teeth Condition: Normal Dentition (upper and lower partials) ASA Classification ASA Score: ASA 3 Emergency Case?: No NPO Status NPO Status: NPO Clears >2 hours, Solids >8 hours Anesthesia Plan Resuscitation Status: Full Code Anesthesia Technique: General Anesthesia Airway Planned: Natural Airway Monitors Used: Standard Monitors
--- NOTE | 2025-09-09 08:07 | W.PM.HP.N ---
Date of service: 09/09/25 Time of Service: 08:07 Assessment and Plan Assessment and plan (1) Overactive bladder: (2) Mixed urge and stress incontinence: Assessment and plan: We will repeat her injection of Botox into the detrusor muscle History of Present Illness History of Present Illness Chief Complaint: Urgency incontinence due to overactive bladder Narrative: This is an 89-year-old woman who has a history of a previous stroke. She has a longstanding history of urinary incontinence related to an overactive bladder. She has been unable to tolerate anticholinergic medications due to chronic constipation. She had no benefit from beta 3 agonists. She had benefit from an injection of Botox into the detrusor muscle about 6 months ago. Her symptoms have begun to recur about 3 to 4 weeks ago. She presents for repeat injection. She is not having any dysuria or gross hematuria. Review of Systems Narrative: No fevers or chills Decreased hearing acuity. Cataract. No diabetes or thyroid dysfunction No shortness of breath, cough or hemoptysis No chest pain or palpitations No nausea, vomiting, hepatitis, ulcers, jaundice Hx stroke. No seizures No bleeding disorders or anemia Left shoulder pain - sustained fracture after recent fall. No gout PFSH All Active Problems Closed left clavicular fracture (Acute ~08/14/25) Balance problem (Acute) Weakness (Acute) Back pain (Acute) Syncope and collapse (Acute) Thoracic back pain (Acute) Acute lumbar back pain (Acute) Shoulder pain, left (Acute) Impairment of speech discrimination (Acute) Bilateral sensorineural hearing loss (Acute) Vertebral compression fracture (Acute) Osteopenia (Acute) Chronic hip pain after total replacement of right hip joint (Acute) Strain of right iliopsoas muscle (Acute) Paresthesia (Acute) Paroxysmal atrial fibrillation (Acute) Left hemiparesis (Acute) Nocturia (Acute) Acute CVA (cerebrovascular accident) (Acute) CVA (cerebral vascular accident) (Chronic) Family history of dementia (Acute) Memory changes (Acute) Anxiety (Chronic 06/03/07) Left bundle branch block (Acute 10/27/19) Presence of hip joint prosthesis (Acute 05/10/21) Edema (Acute 10/29/19) Non-scarring alopecia (Acute 03/04/15) Disorder of nail (Acute 10/24/20) Follicular cyst of skin and subcutaneous tissue (Acute 05/09/22) Gastritis (Acute 04/24/21) Sinusitis (Acute 01/23/16) Essential hypertension (Acute 03/03/20) Hearing loss (Acute 02/09/19) Epiphora (Acute 05/13/23) Adjustment disorder (Chronic 04/19/20) Mucoid cyst of joint (Acute) right hand third digit Sensorineural hearing loss of combined sites, bilateral (Acute 06/08/16) Tinnitus (Acute 06/27/15) Foreign body in right ear (Acute) Cerumen impaction (Acute) Abnormal auditory perception (Acute) Nuclear sclerotic cataract of right eye (Acute 03/11/17) Medical History Clavicle fracture Impacted cerumen of both ears Scleral hemorrhage of right eye Mixed urge and stress incontinence (01/03/16) Constipation 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) Major depression (04/04/05) Overactive bladder (12/08/23) Nondependent alcohol abuse, 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) Peripheral edema Right shoulder pain (10/27/19) Hyperlipidemia (10/10/05) Urinary urgency Vitamin D deficiency (03/03/20) Vertigo Surgical History 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) History of esophagogastroduodenoscopy (EGD) History of colonoscopy History of cataract surgery Family History Father , At age 48 Alcohol use disorder Liver disease Mother , At age 81 Dementia Sister Diabetes Brother Diabetes CAD (coronary artery disease) Spinal disease Other Breast cancer Heart disease Hyperlipidemia Hypertension Stroke Social History Smoking/Tobacco Use Status: Former Tobacco Use Quit Date: 09/23/95 Second Hand Exposure: No Smoking risk assessment performed?: Yes Alcohol Intake: former Drug use: Never Substance use type: does not use Adopted: No Caregiver/Support person: No Foster care: No Household members: other Details: Sister Housing: house Number of Children: 2 number of grandchildren: 6 Communication Needs: Hard of Hearing and Corrective Lenses Education Level: high school Do you need help understanding health information?: Rarely current occupation: retired Pets and animals: No Sexually active: No Do you think of yourself as: straight/heterosexual Current gender identity: female What is your relationship status?: How often do you talk on the phone with friends or family?: once per week How often do you get together with friends or relatives?: once per week Do you belong to any clubs or organized social groups?: no Panel score (0-1 are the most socially isolated patients): 0 What type of physical activity do you participate in: none Tuyet/Scientology: Jew Special tuyet needs: No Seatbelt use: always Drive intox or ride w/intox local bulk driver: No Do you feel safe at home: Yes Do you feel safe in your relationship?: Yes Additional [facility] history: [facility] Med[facility] Allergies and Home Medications Allergies Allergy/AdvReac Type Severity Reaction Status Date / Time codeine AdvReac Intermediate Nausea Verified 09/09/25 08:01 oxybutynin AdvReac Mild dry mouth Verified 09/09/25 08:01 Home Medications ?Medication ?Instructions ?Recorded ?Confirmed ?Type acetaminophen 650 mg 1,300 mg PO Q12H 07/11/22 09/08/25 History tablet,extended release (Tylenol Arthritis Pain) cholecalciferol (vitamin D3) 25 25 mcg PO DAILY 07/11/22 09/08/25 History mcg (1,000 unit) capsule aspirin 81 mg capsule 81 mg PO DAILY #90 caps 09/18/24 09/08/25 Rx sertraline 50 mg tablet 75 mg (1.5 x 50 mg) PO DAILY 06/23/25 09/08/25 Rx depression #135 tabs lisinopril 5 mg tablet 5 mg PO DAILY #90 tabs 06/29/25 09/08/25 Rx atorvastatin 20 mg tablet 20 mg PO DAILY cholesterol #90 tabs 08/20/25 09/08/25 Rx apixaban 2.5 mg tablet 2.5 mg PO BID #60 tabs 08/27/25 09/08/25 Rx Exam Const General: cooperative Neck Neck: supple Resp Effort & Inspection: normal respiratory effort Auscultation: clear to auscultation bilaterally Cardio Rate: regular rate Rhythm: regular rhythm GI Palpation: soft and no masses Neuro General: patient alert, patient awake and patient oriented x3 Results Last Vital Signs Temp 36.5 C 09/09/25 08:01 Pulse 68 09/09/25 08:01 Resp 18 09/09/25 08:01 BP 181/48 H 09/09/25 08:01 Pulse Ox 99 09/09/25 08:01 VTE Prohylaxis Risk Level: Moderate/High Risk Contraindications: None Prophylaxis: Mechanical Time Spent Time spent with Patient: <40 minutes Time was spent: other
[2025-09-09 08:09] VITALS: BMI 26.8
[2025-09-09] MEDS: Lactated Ringers 1,000 ML 80 ML IV (08:28)
[2025-09-09] MEDS: Lidocaine 2% Jelly 11 ML SYR (09:00)
[2025-09-09] MEDS: BOTULINUM TOXIN TYPE A 100 UNITS, Normal Saline 20 ML IJ (09:05)
--- NOTE | 2025-09-09 09:13 | W.PM.DSUDISC ---
Date of service: 09/09/25 Discharge Plan Disposition Patient Disposition: Home Condition: Stable Discharge Details Reason For Visit: cystoscopy with botox injection Attending Provider: Yao Hernandez Primary Care Provider: Jessica Russell Home Meds and New Rx's Prescriptions: No Action sertraline 50 mg tablet 75 mg PO DAILY Qty: 135 3RF cholecalciferol (vitamin D3) 25 mcg (1,000 unit) capsule 25 mcg PO DAILY Patient Comments: takes occasionally acetaminophen [Tylenol Arthritis Pain] 650 mg tablet extended release 1,300 mg PO Q12H aspirin 81 mg capsule 81 mg PO DAILY Qty: 90 3RF lisinopril 5 mg tablet 5 mg PO DAILY Qty: 90 3RF atorvastatin 20 mg tablet 20 mg PO DAILY Qty: 90 3RF apixaban 2.5 mg tablet 2.5 mg PO BID Qty: 60 2RF Discharge Instructions Additional Instructions: followup 6 months for repeat Botox injection Stand Alone Forms: Portal Information Activity:: Activity as Tolerated Shower/Bathe:: 24 hours Diet:: As Tolerated Discharge Orders Discharge Orders: Discharge Order (Routine); Ordered 09/09/25 Ordered By: Yao Hernandez DS: Diagnosis Discharge Diagnosis (1) Overactive bladder: (2) Mixed urge and stress incontinence:
[2025-09-09 09:15] VITALS: BP 112/51; PULSE 70; RESP 18; TEMP 36; O2SAT 98
--- NOTE | 2025-09-09 09:25 | W.ANESPOSTOP ---
Postoperative Evaluation Date, Time and Location Date Performed: 09/09/25 Time Performed: : Patient Location: Day [facility] Unit Vital Signs Most Recent Imported Vital Signs: Most Recent Vital Signs Temp Pulse Resp BP Pulse Ox 36.0 C L 70 18 112/51 L 98 09/09/25 09:15 09/09/25 09:15 09/09/25 09:15 09/09/25 09:15 09/09/25 09:15 Pain Score Most Recent Pain Score: Most Recent Pain Score Pain Level 0 09/09/25 09:15 Assessment Mental Status: Awake (Alert & Oriented to Patient Baseline) Airway and Respiratory Function: Patent airway with normal (patient baseline) respiratory exam Cardiovascular Function: Hemodynamically Stable Hydration Status: Adequately Hydrated Nausea & Vomiting: No Nausea or Vomiting Pain: Pt. Denies Any Pain Peripheral Nerve Block: Patient did not receive a nerve block
[2025-09-09] MEDS: Phenazopyridine 200 MG TAB PO (09:29)
[2025-09-09 09:44] VITALS: BP 146/62; PULSE 67; RESP 18; TEMP 36.2; O2SAT 99
--- NOTE | 2025-09-09 12:35 | ROE_ITS ---
Operative Note Operative Note PRE-OP DIAGNOSIS: Urgency incontinence due to overactive bladder POST-OP DIAGNOSIS: same PROCEDURE: Cystoscopy with transurethral injection of Botox into the detrusor muscle SURGEON: Yao Hernandez ANESTHESIA TYPE: Local By Surgeon and General:No Airway Refer to Anesthesia Record ESTIMATED BLOOD LOSS: 5 PATHOLOGY: none sent COMPLICATIONS: None Patient was transported to: same day Patient's condition: stable Implants: 100 units of Botox Indications: This is an 89-year-old woman who has a history of urinary urgency incontinence related to an overactive bladder. She has failed behavioral modification, pelvic floor physical therapy and oral medical therapy. She has had improvement with Botox injections into the bladder. She presents for repeat injections Findings: Normal-appearing bladder Procedure Description: The patient was given oral antibiotics and brought to the operating room on 09/09/2025. After successful induction of general anesthesia without intubation, she was placed in the dorsal lithotomy position. Her genitalia was prepped with Betadine. 2% Xylocaine jelly was instilled into the urethra. A 20 [place] urethrotome sheath was passed through the urethra into the bladder. The bladder was inspected with a 30 degree lens. Both ureteral orifices appeared normal with no blood coming from either side. No papillary or nodular lesions were seen within the bladder. Using a transurethral injection system, we injected a total of 100 units of Botox into the detrusor muscle. We diluted the Botox into 20 mL of dilute and injected 1 mL in 20 different locations. We used a grid pattern on the posterior bladder wall with 4 horizontal rows and 5 vertical rows. We avoided the bladder neck and the trigone with our injections. The bladder was then emptied and the cystoscope was removed. The patient tolerated the procedure well with no complications. Date of Procedure: 09/09/25
== END 2025-09-09 10:00 | disposition home or self-care (01) ==
PROVIDERS: PCP Nurse Practitioner Family; Visit Provider Urology
PROC: (CPT 52287; principal; 2025-09-09 08:30)
DX: N32.81 Overactive bladder (principal); N39.46 Mixed incontinence; I48.0 Paroxysmal atrial fibrillation; Z79.01 Long term (current) use of anticoagulants
CPT/HCPCS: 52287; J0585; J1100; J2405; J2704